=== PATIENT | female | born 1935 | race Caucasian/White ===

== ENCOUNTER → 2016-10-30 | Outpatient (REF) | payer MEDICARE, OTHER ==
[2016-10-30 14:35] LABS: PERCENT SATURATION 12.2 % (13.2-37.4)
== END | disposition home or self-care (01) ==
LOC: M LAB REF 13:23
PROVIDERS: ATTEND Internal Medicine Medical Oncology
DX: D69.6 Thrombocytopenia, unspecified (principal)

== ENCOUNTER → 2018-07-02 | Outpatient (REF) | payer MEDICARE, OTHER ==
[2018-07-02 14:33] LABS: FERRITIN 69 NG/ML (8-252); IRON (FE) 90 UG/DL (50-170); PERCENT SATURATION 41.9 % (13.2-45.0); TOTAL IRON BINDING CAPACITY 215 UG/DL (250-450)
== END ==
LOC: M LAB REF 13:34
DX: D47.1 Chronic myeloproliferative disease (principal)
CPT/HCPCS: 83550

== ENCOUNTER → 2019-02-17 | Outpatient (CLI) | payer MEDICARE, OTHER ==
[~2019-02-17] MED LIST: ALLO10TA PO; ANOR1AER PO; CALC1CAP31 PO; DICL1GEL3 TD; ELIQ2.5T PO; HYDR25TAB PO; IRBE150T12 PO; NORV5TAB PO; POTA10CA32 PO; TRAM50TA2 PO; TRIA0.027 TOP; VITA200038 PO
--- NOTE | 2019-02-17 12:29 | REP ---
CHEST X-RAY: Two views. HISTORY: Pneumonia. No comparison study. FINDINGS: Mild cardiac enlargement is observed. Cardiothoracic ratio measures 52.9%. The aorta is somewhat tortuous. There is a dextroconvex thoracic spine curvature. Interstitial markings are mildly prominent in both bases. Minimal linear fibrosis changes are seen on the left. No focal infiltrate is seen. The pleural angles are sharp. There are degenerative changes in the thoracic spine. There is minimal wedging of one of the mid-thoracic vertebrae which appears chronic. IMPRESSION: Cardiac enlargement. Mildly prominent basilar interstitial markings. Mild linear fibrosis on the left. Otherwise no acute disease. Electronically Signed by Hesham Engle MD 02/17/2019 01:15 P
== END ==
LOC: M SMT 10:37
PROVIDERS: ATTEND Internal Medicine Nephrology
DX: R91.8 Other nonspecific abnormal finding of lung field (principal); I51.7 Cardiomegaly

== ENCOUNTER 2019-09-29 14:30 | Emergency (ER) | payer MEDICARE, OTHER ==
[~2019-09-29] VITALS: Ht 167.6 cm; Wt 77.6 kg
[~2019-09-29 14:30] MED LIST changes: +GABA-845 PO
[2019-09-29] MEDS ORDERED: METAL LOCK LOOP XX ONE (15:32)
[2019-09-29 15:33] LABS: HEMATOCRIT 35.6 % (36.0-47.0); HEMOGLOBIN 10.5 g/dl (12.0-15.5); MEAN CORPUSCULAR HEMOGLOBIN 25.1 pg (27.0-33.0); MEAN CORPUSCULAR HGB CONC 29.5 g/dl (32.0-36.5); PLATELET COUNT, AUTOMATED 469 10^3/uL (150-450); RED BLOOD COUNT 4.19 10^6/uL (4.00-5.40)
[2019-09-29 15:38] LABS: WHITE BLOOD COUNT 31.1 10^3/uL (4.0-10.0)
[2019-09-29 15:53] LABS: ALBUMIN 3.9 GM/DL (3.2-5.2); BILIRUBIN,DIRECT 0.2 MG/DL (0.0-0.2); BILIRUBIN,TOTAL 0.6 MG/DL (0.2-1.0); CALCIUM LEVEL 8.7 MG/DL (8.8-10.2); CREATININE FOR GFR 1.82 MG/DL (0.55-1.30)
[2019-09-29 16:08] LABS: ATYPICAL LYMPH 2 % (0-5); BASOPHILS 4 % (0-1); EOSINOPHILS 2 % (0-3); LYMPHOCYTES 15 % (16-44); METAMYELOCYTES 7 % (0-0); MONOCYTES 3 % (0-5); MYELOCYTES 10 % (0-0); NEUTROPHILS 49 % (28-66); PLATELET ESTIMATE NORMAL (NORMAL); PROMYELOCYTES 1 % (0-0)
[2019-09-29 16:09] LABS: ANISOCYTOSIS 2+; HYPOCHROMASIA 1+; OVALOCYTES 1+; POIKILOCYTOSIS 2+; POLYCHROMASIA 1+
[2019-09-29 18:24] VITALS: BP 168/68
--- NOTE | 2019-09-29 19:25 | REP ---
RIGHT UPPER QUADRANT ULTRASOUND: Real-time sonographic evaluation of the right upper quadrant performed. There appears to be a 7 mm stone in the neck of the gallbladder. No gallbladder wall thickening is seen. The patient is tender at the site of the gallbladder. There is no intrahepatic or extrahepatic biliary dilatation, the common bile duct measuring 4 mm. The liver is heterogeneous and increased in echotexture suggesting some degree of fibrofatty infiltration. Main portal vein is dilated up to 20 mm suggesting portal hypertension. No gross pancreatic or liver mass is seen. Right kidney demonstrates no hydronephrosis with length of 9.6 cm. Multiple cysts are seen. The largest is in the mid aspect 1.3 cm in diameter. No free fluid is seen. IMPRESSION: There appears to be a 7 mm gallstone in the neck of the gallbladder. The patient is tender at the gallbladder site. No gallbladder wall thickening or biliary dilatation. No free fluid. Increased heterogeneous echotexture of the liver suggests fibrofatty infiltration. Dilated main portal vein suggests portal hypertension. Electronically Signed by Ed South MD 09/30/2019 04:40 P
--- NOTE | 2019-10-03 08:00 | ED PDOC ---
Post-Departure Follow-Up dr garrido and dr sreedhar lovett faxed fomral report of us for fu Nicholas Feng MD Oct 03, 2019 08:00
== END 2019-09-29 18:26 | disposition home or self-care (01) ==
LOC: M ED 14:30
DX: D47.1 Chronic myeloproliferative disease (principal); K80.70 Calculus of gallbladder and bile duct without cholecystitis without obstruction; C92.90 Myeloid leukemia, unspecified, not having achieved remission; Z87.891 Personal history of nicotine dependence; Z79.899 Other long term (current) drug therapy; Z79.01 Long term (current) use of anticoagulants

== ENCOUNTER → 2020-01-11 | Outpatient (REF) | payer MEDICARE, OTHER ==
[~2020-01-11] MED LIST changes: +ENOX80IN3 SC; -IRBE150T12 PO; +IRBE150T7 PO; +POTA10TA17 PO; +[UNRECOGNIZED DRUG - CODE] PO
[2020-01-13 09:02] LABS: HEPATITIS B CORE ANTIBODY IGM NEGATIVE (NEGATIVE); HEPATITIS B SURFACE ANTIBODY NEGATIVE (POSITIVE); HEPATITIS B SURFACE ANTIGEN NEGATIVE (NEGATIVE); HEPATITIS C VIRUS ABY INDEX 0.1 INDEX (<0.8)
== END ==
LOC: M LAB REF 13:21
PROVIDERS: ATTEND Nurse Practitioner Family
DX: N18.6 End stage renal disease (principal)

== ENCOUNTER → 2020-01-12 | Outpatient (CLI) | payer MEDICARE, OTHER ==
[~2020-01-12] MED LIST changes: +ACETAMINOPHEN 325 MG TAB As Ordered ONE; +HEPARIN 1,000 UNITS/ML 10ML VIAL (FOR RADIOLOGY& DIALYSIS ONLY)(J1644-10) As Ordered ONE; +LIDOCAINE W/EPINEPHRINE 1% 20ML VIAL As Ordered ONE; +MIDAZOLAM INJ 2 MG/2 ML VIAL (J2250) As Ordered ONE; +ONDANSETRON 4MG/2ML VIAL (J2405) As Ordered ONE; +SODIUM BICARBONATE 8.4% INJ 50MEQ 50 ML VIAL As Ordered ONE; +ceFAZolin 1GM VIAL (J0690 PER 500MG) As Ordered ONE; +fentaNYL 100 MCG/2 ML INJECTION (J3010) As Ordered ONE
--- NOTE | 2020-01-12 15:45 | ROOPDOC ---
[facility] Report Of Operation Report of Operation DATE OF PROCEDURE: 01/12/20 PREPROCEDURE DIAGNOSES: Renal failure requiring access for dialysis POSTPROCEDURE DIAGNOSES: Same. PROCEDURE: 1. Ultrasound-guided access right internal jugular vein 2. Placement of a 23 cm tunneled PermCath right internal jugular vein SURGEON: Laurie De Oliveira MD ANESTHESIA: Local anesthesia with 25 mL lidocaine with epinephrine. Moderate intravenous conscious sedation was supervised by Dr. De Oliveira. The patient was independently monitored by a registered nurse assigned to the Department of radiology using automated blood pressure, EKG, and pulse oximetry. A detailed sedation record is probably started in the hospital information system. The f trice is a brief sedation record: Start time 15:07, stop time 15:14, Versed 1 mg IV, fentanyl 25 g IV. INDICATION FOR PROCEDURE: This is a very pleasant 84-year-old patient with acute on chronic renal insufficiency requiring access for dialysis. Risks benefits and alternatives to PermCath placement were explained to the patient she is agreeable to proceed. Informed consent was obtained. INTERPRETATION: The right IJ PermCath is in good position with no kinks in the catheter and the tip freely mobile and the right atrial SVC junction. There is no pneumothorax. REPORT OF OPERATION: The patient was brought into graphic suite in stable condition and placed supine on the fluoroscopic table. Her right neck and chest were prepped and draped in a sterile fashion. A timeout was performed. Sedation antibiotics were administered without compensation. Local anesthesia was administered to the skin and subcutaneous tissue over the right IJ and the right chest and over the clavicle. A microneedle was used to access the jugular vein under ultrasound guidance. A wire was passed through this access and the needle was removed. A 4 Irish sheath was placed and flushed with saline. We then advanced a J-wire and to the central system under fluoroscopic guidance. 2 serial dilations were performed over the wire and a peel-away sheath was placed. We then made a small incision on the right chest and tunneled the catheter from the right chest to the jugular access site up over the clavicle until the cough was within the subcutaneous tissue. The inner cannula of the sheath and the wire were removed. We then advanced the tips of the catheter through the peel-away sheath into the central system under fluoroscopic guidance. The peel-away sheath was removed. We were able to easily sara back and flushed each port of the catheter and they were heparin locked. Appropriate caps were placed. Two deep and 2 superficial dermal Monocryl sutures were used to close the jugular access site Dermabond was placed over the skin. The exit site on the right chest was closed with 2 Prolene sutures and the catheter was secured to the chest wall with 2 additional Prolene sutures. Sterile dressings were applied. The patient was taken to recovery in stable condition. She tolerated the procedure and the sedation well. In recovery, initially she had a little bit of nausea and Zofran was given with resolution of the nausea. She then tolerated diet. We plan to watch her for 30-40 minutes post sedation prior to discharge, and then she will return home if stable. ESTIMATED BLOOD LOSS: Approximately 2 mL. COMPLICATIONS: None. PLAN: It is okay to use the PermCath for dialysis. She is welcome to continue her home medications and diet, but we would like her to hold her eliquis tonight and in the morning, and then she can resume it tomorrow night. If the patient is deemed permanent renal failure, we would like to see her back with the vein yani ing to discuss options for an AV fistula creation versus AV graft. We appreciate the opportunity to participate in the care of this patient. LAURIE DE OLIVEIRA MD Jan 12, 2020 15:45
[2020-01-12 16:00] VITALS: BP 136/70
== END ==
LOC: M IRPRO 14:08
PROVIDERS: ATTEND Surgery Vascular Surgery
DX: N18.6 End stage renal disease (principal); M10.9 Gout, unspecified; D47.1 Chronic myeloproliferative disease; J44.9 Chronic obstructive pulmonary disease, unspecified; Z86.718 Personal history of other venous thrombosis and embolism; Z79.01 Long term (current) use of anticoagulants; Z79.899 Other long term (current) drug therapy

== ENCOUNTER → 2020-01-26 | Outpatient (CLI) | payer MEDICARE, OTHER ==
[~2020-01-26] MED LIST changes: -ACETAMINOPHEN 325 MG TAB As Ordered ONE; -HEPARIN 1,000 UNITS/ML 10ML VIAL (FOR RADIOLOGY& DIALYSIS ONLY)(J1644-10) As Ordered ONE; -LIDOCAINE W/EPINEPHRINE 1% 20ML VIAL As Ordered ONE; -MIDAZOLAM INJ 2 MG/2 ML VIAL (J2250) As Ordered ONE; -ONDANSETRON 4MG/2ML VIAL (J2405) As Ordered ONE; -SODIUM BICARBONATE 8.4% INJ 50MEQ 50 ML VIAL As Ordered ONE; -ceFAZolin 1GM VIAL (J0690 PER 500MG) As Ordered ONE; -fentaNYL 100 MCG/2 ML INJECTION (J3010) As Ordered ONE
--- NOTE | 2020-01-26 15:15 | REP ---
BILATERAL UPPER EXTREMITY DUPLEX DOPPLER ARTERIAL AND VENOUS ULTRASOUND FOR AV FISTULA MAPPING: Real-time ultrasound evaluation and duplex Doppler interrogation of bilateral upper extremity arterial and venous systems performed for AV fistula mapping. There is occlusive thrombus at the right internal jugular vein. Permacatheter is the proximal right internal jugular vein. There is thrombus in the cephalic vein at the right antecubital fossa. No thrombus is seen in the venous structures of the left upper extremity. On the right, the basilic vein measures 1 mm throughout its course in the upper and lower arm. Cephalic vein also measures 1 mm throughout its course in the upper and lower arm. Right upper extremity arterial structures demonstrate normal flow velocities with biphasic waveforms. Right axillary artery measures 6 mm, brachial artery 4 mm, radial artery 3 mm and ulnar artery 4 mm. On the left, the basilic vein measures 4 mm at the upper humerus, 3 mm at the lower humerus and 1 mm throughout the forearm. Median cubital vein measures 2 mm. Left cephalic vein measures 1 mm throughout the upper and lower arm. Left upper extremity arterial structures demonstrate normal flow velocities with biphasic waveforms. Left axillary artery measures 6 mm, brachial artery 4 mm and radial and ulnar arteries 3 mm. Electronically Signed by Ed South MD 01/26/2020 03:49 P
== END ==
LOC: M RAD 12:22
PROVIDERS: ATTEND Physician Assistant
DX: N18.6 End stage renal disease (principal); Z99.2 Dependence on renal dialysis

== ENCOUNTER 2020-02-20 18:57 | Inpatient (IN) | payer MEDICARE, OTHER ==
[~2020-02-20] VITALS: Ht 167.6 cm; Wt 65.9 kg
[2020-02-20 19:45] LABS: HEMATOCRIT 27.9 % (36.0-47.0); HEMOGLOBIN 8.2 g/dl (12.0-15.5); MEAN CORPUSCULAR HEMOGLOBIN 28.3 pg (27.0-33.0); MEAN CORPUSCULAR HGB CONC 29.4 g/dl (32.0-36.5); MEAN CORPUSCULAR VOLUME 96.2 fl (80.0-96.0); PLATELET COUNT, AUTOMATED 236 10^3/uL (150-450)
[2020-02-20 19:49] LABS: WHITE BLOOD COUNT 59.9 10^3/uL (4.0-10.0)
[2020-02-20 20:07] LABS: CALCIUM LEVEL 7.1 MG/DL (8.8-10.2); CK-MB VALUE MASS 1.3 NG/ML (<3.6); CREATININE FOR GFR 2.96 MG/DL (0.55-1.30); MB/CK RELATIVE INDEX 0.74 (< OR =4); POTASSIUM SERUM 4.7 MEQ/L (3.5-5.1); TROPONIN I 0.02 NG/ML (< 0.10)
[2020-02-20 20:09] LABS: ANISOCYTOSIS 2+; BASOPHILS 4 % (0-1); BLAST CELLS 3 % (0-0); HYPOCHROMASIA 2+; LYMPHOCYTES 11 % (16-44); METAMYELOCYTES 4 % (0-0); MONOCYTES 4 % (0-5); MYELOCYTES 8 % (0-0); NEUTROPHILS 61 % (28-66); PLATELET ESTIMATE NORMAL (NORMAL); POLYCHROMASIA 2+; PROMYELOCYTES 3 % (0-0); TOXIC VACUOLATION 1+
[2020-02-20 20:11] LABS: POIKILOCYTOSIS 2+; SCHISTOCYTES 1+
[2020-02-20 20:12] LABS: BURR CELLS 1+; SMUDGE CELLS 1+; TEAR DROP CELLS 1+
[2020-02-20] MEDS: SPIRONOLACTONE 25 MG TAB PO SCH (21:00)
[2020-02-20] MEDS ORDERED: APIXABAN 2.5 MG TAB (ELIQUIS) PO SCH (21:00)
[2020-02-20] MEDS: DOCUSATE SODIUM 100 MG CAP PO SCH (21:00)
[2020-02-20] MEDS ORDERED: FUROSEMIDE 20 MG TAB PO SCH (21:00)
--- NOTE | 2020-02-20 21:23 | IPNPDOC ---
Text Note Date of Service The patient was seen on 02/20/20. 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 1 Hypotension without SIRS - admit to PCU / ask to help us place a central line / start Levophed / hold amlodipine, irbersartan, Entreso, Lasix, HTCZ and spironolactone / c/w midodrine / since she is in Entreso I suspect she has systolic CHF, we will check a BNP, pending records from 's office the day time team can determine if she needs an Echo this admission 2 ESRD/ Malise possibly 2/2 dialysis dysequilibrium syndrome. - consult / pending records from the day time team can discuss weather the patient's irbersartan & Entreso should be d'cd bc she has ESRD with 3. Multifactorial Anemia - type and screen / f/u iron studies to see if she is a candidate for venofer / day time team can f/u w to see if she is a can didate for Epogen 4. Paroxysmal Afib - she has been evaluated by and is on AC, will ask staff to help us obtain records from his office, / hold tonight's dose of Eliquis 5. Lactic acidosis - likely hypoxic 2/2 regional hypoperfusion or non-hypoxic due to delayed clearance 2/2 renal dysfunction / trend lactic acid 6. CMML with leukocytosis and macrocytic anemia - f/u Hem/Onc as scheduled 7. Reactive airway disease ?- c/w Anoro Ellipta rest per ' H&P LATE ENTRY The patient's MAP is persistently below 65. Both Gael Granger and Lili had difficulties placing a line. We will keep her NPO and ask the daytime team to have IR place a line in the morning, in the meanwh ile we will run levophed peripherally VS,Fishbone, I+O VS, Fishbone, I+O Laboratory Tests 02/20/20 19:21 Vital Signs Date Time Temp Pulse Resp B/P (MAP) Pulse Ox O2 Delivery O2 Flow Rate FiO2 02/20/20 20:54 109/55 (73) 02/20/20 20:45 87 02/20/20 20:15 97 Nasal Cannula 4.0 02/20/20 19:03 97.2 22 JOSHUA HOUSE MD February 20, 2020 21:23
[2020-02-20] MEDS ORDERED: VITA200010 PO (21:59)
[2020-02-20] MEDS ORDERED: GABA-1171 PO (22:05)
[2020-02-20] MEDS ORDERED: PROL60SO SC (22:05)
[2020-02-20] MEDS ORDERED: SPIR-10 PO (22:05)
[2020-02-20] MEDS ORDERED: MIDO5TA PO (22:05)
[2020-02-20] MEDS ORDERED: FURO20TA2 PO (22:05)
[2020-02-20] MEDS ORDERED: FURO40TA2 PO (22:05)
[2020-02-20] MEDS ORDERED: ENTR1TAB PO (22:05)
[2020-02-20] MEDS ORDERED: VOLT1GEL15 TOP (22:05)
[2020-02-20] MEDS ORDERED: MOM 30ML SUSPENSION UDC PO PRN (22:30)
[2020-02-20] MEDS ORDERED: MIDODRINE 5 MG TAB PO SCH (22:45)
[2020-02-20] MEDS ORDERED: METAL LOCK LOOP XX ONE (23:00)
--- NOTE | 2020-02-20 23:39 | HPEPDOC ---
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 She has felt weak ever since initiating hemodialysis last month and had accompanying chills this afternoon during dialysis. She follows with Dr. Paniagua and has been receiving hemodialysis every Thursday, Thursday, Thursday. Per report, patient required an extra dialysis session this past Thursday to try and help get more fluid off. Upon exam the emergency department, she denied any symptoms other than the aforementioned chills and generalized weakness. Her labs showed WBC 59.9, hemo globin 8.2, MCV 96.2, serum calcium 7.1, BUN 33, creatinine 2.96, GFR 16%. A point of care arterial blood gas showed pH of 7.554, PCO2 29.7, HCO3 of 26.3, with anion gap of 11. Lactic acid was 3.8. Two blood cultures were drawn and are pending. EKG showed what believed to be new onset atrial fibrillation with a controlled ventricular rate. Cardiac enzymes were not elevated. She was typed and screened due to the low hemoglobin. Upon the recommendation of nephrology, she was admitted overnight under the care of the hospitalist service. She was initially admitted to PCU, but became hypotensive again with a map under 65. At this time, it was felt she would be unable to consistently maintain adequate pressures without pharmacological pressor support. She was subsequently transferred to the ICU and agreed for central line placement. Unfortunately, general surgery, was unable to place a line after not getting enough blood return from the left internal jugular vein, as well as struggling with these left subclavian vein. Due to the patient's anasarca, femoral line placement was deferred. Peripheral IV administration of levofed was to be initiated to maintain her pressures as well as possible. 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 She has no children. 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 Quit smoking approximately 15 years ago. She smoked cigarettes for 30 years, 1 pack per day. Denies current or former alcohol or illicit drug use. FAMILY HISTORY: Father: Lung cancer Hypertension runs in the family ALLERGIES: Please see below. REVIEW OF SYSTEMS: 10 point review of systems complete, all negative except otherwise stated in HPI HOME MEDICATIONS: Please see below. PHYSICAL EXAMINATION: VITAL SIGNS: Temperature 97.2, pulse 87, respiratory rate 18, blood pressure 109/55, pulse oximetry, 97 % on 4L NC. GENERAL APPEARANCE: Elderly female with significant anasarca (bilateral legs, arms, and face). Lying in bed at time of exam. No acute distress but does appear fatigued. Alert and oriented 3. HEENT: Cheeks and neck appear swollen. Wearing eyeglasses. PERRLA. Noninjected, anicteric sclera. Wearing upper and lower dentures. No pharyngeal erythema or exudate. No cervical or supraclavicular lymphadenopathy appreciated. Moderately hard of hearing. CARDIOVASCULAR: Irregularly irregular rhythm, controlled rate. No murmurs or rubs appreciated. Permacath present in right upper chest. LUNGS: On 4 L nasal cannula. Diffuse mild wheezes with faint inspiratory crackles appreciated at the right lung base. Diminished tidal volume and breath sounds. Symmetric chest expansion. Speaking full sentences. ABDOMEN: Soft, nontender with some mild distention appreciated. Normoactive bowel sounds all 4 quadrants. No guarding or rigidity. EXTREMITIES: 3+ pitting edema b/l LE with active weeping (right a bit worse than the left), b/l 2+ pedal edema, b/l UE 1-2+ pitting edema with active weeping. 2+ radial pulses bilaterally. Difficult to appreciate for lower extremity pulses due to significant edema. Skin over her hands and feet cool to the touch. NEUROLOGICAL: Awake, alert and oriented 3. No focal neurological deficits appreciated. Respond appropriately to questions and commands. PSYCHIATRIC: Affect and mood appear appropriate LABORATORY DATA: Please see below. IMAGING: One view, portable chest x-ray, 02/20/20 MICROBIOLOGY: Please see below. ASSESSMENT & PLAN: This is an 84-year-old female with h/o ESRD on HD via permacath (MWF), chronic myeloproliferative disorder evolving to chronic myelomonocytic leukemia and possible acute myeloid leukemia, previous DVT on eliquis, reactive airway disease, HTN, Vit D deficiency, and gout who was principally admitted for dialysis disequilibrium syndrome with hypotension and also presented in new onset atrial fibrillation. #Hypotension with ESRD on hemodialysis via permacath (MWF) -pt was unable to consistently maintain MAP > 65 after admission; decision made to -malaise with ESRD points to possible possible dialysis disequilibrium disorder -was undergoing Thursday hemodialysis when acutely became hypotensive and subsequently brought to ED via EMS -Nephrology service has been consulted -home diuretics held; home midodrine continued -post-admission hypotension with MAPs < 65 warranted central line placement; both in ED and with general surgery, central line was unable to be placed; norepinephrine was subsequently started peripherally with hope that would bridge adequate pressures to day when line could be attempted again #New onset atrial fibrillation -rate has been controlled -EKG in ED revealed atrial fibrillation -on tele -takes eliquis as outpt due to h/o DVT (occurred 4-5 years ago per pt) -has previously been seen by Dr. Samuel in [place], [place] -evening dose of eliquis was held in preparation of central line placement #Chronic myeloproliferative disorder with significant leukocytosis and macrocytic anemia -per 02/07/20 medical oncology telemedicine office note, pt's disorder has evolved into chronic myelomonocytic leukemia and is likely to further evolve into acute myeloid leukemia -WBC 59.9; Hgb 8.2, MCV 96.2 -most recently had followed with Dr. Gigi Arboleda M.D. of the [facility] -f/u with Fe studies and collaborate with nephrology regarding if pt would benefit from venofer or epogen -also had history of squamous cell skin CA with multiple prior actinic keratoses that were removed #Respiratory alkalosis -POC abg: pH 7.554, pCO2 29.7, HCO3 26.3 -possibly 2/2 to hypoxia from regional hypoperfusion or renal dysfunction #Reactive airway disease -home Anoro ellipta continued -does not use home O2 but has required 3-4L NC supplemental O2 to maintain adequate sats and not feel short of breath #Vitamin D deficiency -home calcitriol continued #History of gout -home allopurinol continued #DVT prophylaxis: home eliquis continued (PM 02/20/20 dose held d/t anticipated central line) Disposition: originally admitted to PCU but later transferred to ICU after s howing MAP < 65 and line placement for levophed anticipated. Vital Signs Vital Signs Date Time Temp Pulse Resp B/P (MAP) Pulse Ox O2 Delivery O2 Flow Rate FiO2 02/20/20 22:45 84 96/50 (65) Nasal Cannula 4.0 02/20/20 20:15 97 02/20/20 19:03 97.2 22 Laboratory Data Labs 24H Laboratory Tests 2 02/20/20 19:21: Immature Granulocyte % (Auto) , Neutrophils (%) (Auto) , Nucleated Red Blood Cells % (auto) 3.9H, Neutrophils 61, Band Neutrophils 2, Lymphocytes (Manual) 11L, Monocytes (Manual) 4, Basophils (Manual) 4H, Metamyelocytes 4H, Myelocytes 8H, Promyelocytes 3H, Blastocytes 3H, Polychromasia 2+, Hypochromasia 2+, Poikilocytosis 2+, Anisocytosis 2+, Schistocytes 1+, Target Cells , Tear Drop Cells 1+, [place] Cells 1+, Toxic Vacuolation 1+, Smudge Cells 1+, Platelet Estimat e NORMAL, Anion Gap 11, Glomerular Filtration Rate 16.0L, Calcium Level 7.1L, Total Creatine Kinase 176, Creatine Kinase MB 1.3, Creatine Kinase MB Relative Index 0.74, Troponin I 0.02, Coronavirus (COVID-19)(PCR) NEGATIVE 02/20/20 20:21: POC pH (Misc Panel) 7.554H, POC Base Excess (Misc Panel) 4.0H, POC Saturated Percent O2 (Misc) 97, POC pO2 (Misc Panel) 81.0, POC pCO2 (Misc Panel) 29.7L, POC HCO3 (Misc Panel) 26.3H, POC Total CO2 (Misc Panel) 27.0 02/20/20 23:05: CBC/BMP Laboratory Tests 02/20/20 19:21 Microbiology Microbiology 02/20/20 Blood Culture, Received Pending 02/20/20 Respiratory Virus Panel (PCR) (TAMIE) - Final, Complete 02/20/20 Blood Culture, Received Pending Home Medications Scheduled Allopurinol (Allopurinol) 100 Mg Tab, 200 MG PO DAILY Amlodipine Besylate (Norvasc) 5 Mg Tab, 5 MG PO DAILY Apixaban (Eliquis) 2.5 Mg Tab, 2.5 MG PO BID Calcitriol (Calcitriol) 0.25 Mcg Cap, 0.25 MCG PO DAILY Cholecalciferol (Vitamin D3) (Vitamin D3) 50 Mcg Tablet, 2,000 UNITS PO DAILY Denosumab Injection (Prolia) 60 Mg/1 Ml Syringe, 60 MG SC ASDIRECTED INJECT 60 MG SUBQ EVERY 6 MONTHS DIRECTED Furosemide (Furosemide) 20 Mg Tablet, 20 MG PO QPM Furosemide (Furosemide) 40 Mg Tablet, 40 MG PO QAM Hydrochlorothiazide (Hydrochlorothiazide) 25 Mg Tab, 25 MG PO DAILY Midodrine HCl (Midodrine HCl) 5 Mg Tablet, 5 MG PO ASDIRECTED PER DIALYSIS 5MG TID ON NON-DIALYSIS DAYS, AND 5MG QAM 10MG MIDDAY AND 5MG EVENING ON DIALYSIS DAYS Spironolactone (Spironolactone) 25 Mg Tablet, 25 MG PO BID Umeclidinium Brm/Vilanterol Tr (Anoro Ellipta 62.5-25 Mcg INH) 1 Aer Aer, 1 PUFF PO DAILY Scheduled PRN Diclofenac Sodium (Voltaren) 100 Gm Gel..gram., 1 APLCT TOP TIDP PRN for PAIN APPLIES TO KNEES FOR KNEE PAIN Gabapentin (Gabapentin) 100 Mg Capsule, 200 MG PO BIDP PRN for PAIN Allergies Coded Allergies: alendronate sodium (Verified Allergy, Unknown, 02/20/20) enalapril (Verified Allergy, Unknown, 02/20/20) A-FIB/CHADSVASC A-FIB History Current/History of A-Fib/PAF?: Yes Current PO Anticoag Therapy: Yes (home eliquis continued) GME ATTESTATION GME ATTESTATION My faculty preceptor for this patient encounter was physically present during the encounter and was fully available. All aspects of the patient interview, examination, medical decision making process, and medical care plan development were reviewed and approved by the faculty preceptor. The faculty preceptor is aw are and concurs with the plan as stated in the body of this note and will attest to such by his/her cosignature. ATTENDING NOTE I agree with the findings as documented. Pls see my addendum from 02/20/20 for additional details. TOAN GOODRICH D.O. February 20, 2020 23:39 JOSHUA HOUSE MD February 24, 2020 07:25
[2020-02-21] VITALS (51 sets, daily range): BP systolic 73–114; BP diastolic 36–68
[2020-02-21] MEDS ORDERED: GABAPENTIN 100 MG CAP PO PRN (01:30)
[2020-02-21] MEDS ORDERED: NOREPINEPHRINE BITARTRATE 16 MG in D5W 484 ML IV SCH (03:00)
[2020-02-21] MEDS ORDERED: NOREPINEPHRINE BITARTRATE 8 MG in D5W 484 ML IV SCH (03:06)
[2020-02-21 04:02] LABS: HEMATOCRIT 25.1 % (36.0-47.0); HEMOGLOBIN 7.5 g/dl (12.0-15.5); MEAN CORPUSCULAR HEMOGLOBIN 28.7 pg (27.0-33.0); MEAN CORPUSCULAR HGB CONC 29.9 g/dl (32.0-36.5); MEAN CORPUSCULAR VOLUME 96.2 fl (80.0-96.0); PLATELET COUNT, AUTOMATED 259 10^3/uL (150-450); RED BLOOD COUNT 2.61 10^6/uL (4.00-5.40)
[2020-02-21 04:14] LABS: WHITE BLOOD COUNT 53.7 10^3/uL (4.0-10.0)
[2020-02-21 04:49] LABS: ALBUMIN 1.9 GM/DL (3.2-5.2); BILIRUBIN,TOTAL 0.4 MG/DL (0.2-1.0); CREATININE FOR GFR 3.44 MG/DL (0.55-1.30); GLOMERULAR FILTRATION RATE 13.4 (>32); POTASSIUM SERUM 3.7 MEQ/L (3.5-5.1); TOTAL PROTEIN 4.8 GM/DL (6.4-8.2)
[2020-02-21] MEDS: NOREPINEPHRINE BITARTRATE 8 MG in D5W 492 ML IV SCH (05:42)
[2020-02-21] MEDS: COMBIVENT RESPIMAT 100-20MCG INHALER 4GM INH SCH ×4 (07:49→19:31)
--- NOTE | 2020-02-21 08:32 | REP ---
PORTABLE CHEST X-RAY: Single view. HISTORY: Hypotension. COMPARISON CHEST X-RAY: February 17, 2019. FINDINGS: Monitoring electrodes are seen. A dual-lumen central venous tunnel catheter is seen in place with its tip in the expected location of the superior vena cava from the right internal jugular vein region. Oxygen delivery tubing is seen. The left hemidiaphragm remains slightly elevated unchanged. No infiltrate is seen. There is very slight blunting of the left lateral pleural angle. Pleural angles are otherwise sharp. Cardiomediastinal silhouette is unchanged. IMPRESSION: Tunneled catheter in place. No infiltrate seen. Electronically Signed by Hesham Engle MD 02/21/2020 11:25 A
[2020-02-21] MEDS ORDERED: FUROSEMIDE 40 MG TAB PO SCH (09:00)
[2020-02-21] MEDS ORDERED: hydroCHLOROthiazide 25 MG TAB PO SCH (09:00)
[2020-02-21] MEDS: APIXABAN 2.5 MG TAB (ELIQUIS) PO SCH ×2 (09:00→20:40)
[2020-02-21] MEDS: SPIRONOLACTONE 25 MG TAB PO SCH (09:35)
[2020-02-21] MEDS: CALCITRIOL 0.25 MCG CAP (S0169) PO SCH (09:35)
[2020-02-21] MEDS: allopurinoL 100 MG TAB PO SCH (09:35)
[2020-02-21] MEDS: DOCUSATE SODIUM 100 MG CAP PO SCH ×2 (09:35→20:40)
[2020-02-21] MEDS ORDERED: LIDOCAINE 1% MDV 20ML VIAL As Ordered ONE (11:25)
[2020-02-21] MEDS: MIDODRINE 5 MG TAB PO SCH ×2 (11:36→17:12)
[2020-02-21 13:20] LABS: PTH INTACT 324.1 PG/ML (18.5-88.0)
[2020-02-21 18:31] LABS: IONIZED CALCIUM 4.3 MG/DL (4.5-5.3)
[2020-02-21 18:48] LABS: HEMATOCRIT 29.3 % (36.0-47.0); HEMOGLOBIN 9.2 g/dl (12.0-15.5)
[2020-02-21] MEDS ORDERED: MAG SULF 1GM/100ML (MAG RUN) 1 GM in IV 1 EA IV ONE (19:00)
[2020-02-21 19:11] LABS: CK-MB VALUE MASS < 1.0 NG/ML (<3.6); CPK CREATINE PHOSPHOKINASE 26 U/L (26-192); MAGNESIUM LEVEL 1.7 MG/DL (1.8-2.4); MB/CK RELATIVE INDEX 3.85 (< OR =4); POTASSIUM SERUM 3.3 MEQ/L (3.5-5.1); TROPONIN I 0.03 NG/ML (< 0.10)
--- NOTE | 2020-02-21 20:18 | REP ---
Procedure: PICC line insertion with Lucio The procedure was performed under the direct supervision of Dr. South. The risks and benefits of the procedure were explained to the patient and informed consent was obtained. The procedure was performed in the ICU at the bedside. The right brachial vein was localized using ultrasound guidance. The skin was prepped and draped in a sterile fashion. 2% lidocaine was used as a local anesthetic. Using ultrasound guidance the brachial vein was cannulated and a 0.018 guidewire was inserted. The needle was removed and a 5.5 Palestinian dilator and peel-away sheath was inserted over the guide wire. A 5.5 Palestinian dual lumen catheter was cut to length of 39 cm. The dilator was removed and the catheter was inserted over the guide wire. A portable chest x-ray was performed and the image demonstrates the catheter to be doubled back on itself in the superior SVC. The PICC line was readjusted. Another chest x-ray was performed and the image demonstrates the tip of the catheter to be in the SVC. The peel-away sheath was removed and the catheter was flushed with heparinized saline as per Hospital protocol. The catheter was affixed to the skin and a sterile dressing was applied. The patient tolerated the procedure well and there were no immediate complications. Electronically Signed by WILL Saucedo 02/21/2020 04:51 P Electronically Signed by Ed South MD 02/21/2020 08:09 P
--- NOTE | 2020-02-21 20:54 | CR ---
MEDICAL ONCOLOGY CONSULTATION NOTE DATE: 02/21/2020 The patient was evaluated while in the medical ICU. INDICATION FOR CONSULTATION: Evaluation and management recommendations regarding abnormal blood counts in the setting of hypotension. 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 The patient is seen in the medical intensive care unit at the request of Dr. Parsons. The patient reports, "I've been feeling weak since I started the dialysis, but I had chills yesterday, and my blood pressure was low so they admitted me." HISTORY OF PRESENT ILLNESS: Jessica Dickerson is a daquan 84-year-old woman whose history of present illness dates to the year 2006, when she was noted to have thrombocytosis. She was evaluated by Ghassan Gallego MD at that time, and on December 07, 2007, laboratory studies documented the position V617F mutation in the gene JAKA2. An initial diagnosis of essential thrombocythemia was made at that time, the patient having come to medical attention after presenting with gout involving the 5th digit of the right foot and laboratory studies showing thrombocytosis. 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 However, over the course of the past 5 years, the patient developed progressive anemia and phlebotomy was discontinued several years ago. She then began treatment using recombinant erythropoietin and later hydroxyurea was resumed. Ms. Dickerson remained on hydroxyurea until the 2014, when it was discontinued due to concerns regarding skin disease with multiple actinic keratoses and the development of squamous cell carcinoma. In the year 2015, she began therapy using ruxolitinib, but this was discontinued due to systemic toxicities, including flu-like symptoms and abdominal discomfort. The patient has been off medical therapy for her chronic myeloproliferative disorder since 2015. Over the past 12 months, the patient has been developing progressively increasing leukocytosis with monocytosis and circulating myeloblasts. Complete blood count in April 2019 showed a white count of 12,100 per microliter, rising to 24,900 per microliter by August 2019. Since that time, the white blood count has progressively continued to rise. In addition, immunophenotyping documented a clonal population of B cells, although the number did not reach the threshold for a diagnosis of chronic lymphocytic leukemia. Mrs. Dickerson underwent laparoscopic cholecystectomy on October 28, 2019 without complications. A blood specimen from October 14, 2019, analyzed via [facility] [place], [place] using the [employer] myeloid gene panel, by next generation sequencing, reported multiple mutations present in the DNA of the peripheral blood. 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 In addition, a mutation was identified in the gene ASXL1 at position 965. In view of the findings of the IDH1 mutation, the drug ivosidenib, at a dose of 500 mg by mouth daily was prescribed. However, this was declined by her healthcare insurer. Subsequently, a letter was sent to the compound finisher of the drug requesting medication on a compassionate basis. A response from the compound finisher has not yet been received. Mrs. Dickerson developed progressive renal insufficiency, and required initiation of hemodialysis in early January 2020. Perma-Cath was placed on January 12, 2020, and the patient promptly began hemodialysis on a Thursday, Thursday, Thursday schedule. However, she has been retaining fluid, and an additional hemodialysis session was performed on Thursday, February 18, 2020. On February 20, 2020, during dialysis, the patient became hypotensive and experienced chills. She was therefore sent to [facility] and was admitted. Hemodialysis was again complicated by hypotension, and the patient has required pressor support during this admission. She reports feeling weak at this time but otherwise well without focal symptoms. She has had no documented fevers since admission. ALLERGIES: The patient is intolerant of ENALAPRIL and ALENDRONATE. INPATIENT MEDICATIONS: - midodrine 10 mg by mouth three times a day - allopurinol 200 mg by mouth daily - calcitriol 0.25 mcg by mouth daily - apixaban 2.5 mg by mouth twice a day - albuterol/ipratropium Combivent one puff four times a day - gabapentin 200 mg by mouth twice a day as needed for pain - norepinephrine by intravenous infusion to maintain blood pressure. PAST MEDICAL HISTORY: Mrs. Dickerson has a past medical history significant for JAK2 positive chronic myeloproliferative disorder as detailed above. She is 0, para 0 and postmenopausal. There is a history of essential hypertension and a history of gout, as well as history of vitamin D deficiency. The patient experienced deep vein thrombosis a number of years ago and has been maintained on apixaban since that time. There is a history of multiple skin cancers with a squamous cell carcinoma removed from the right chin, as well as a basal cell carcinoma excised via Mohs surgery from the left side of the nose. The patient has end-stage renal failure as noted above with a Perma-Cath in the right subclavian position. 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 She was born in [place] while her father was in medical school. The patient smoked from the ages of 14 to the age of 63 for an approximately 50 pack-year history of tobacco use. This has been complicated by bronchospastic airway disease. Alcohol: There is no history of alcohol use. Illicit drugs: There is no history of illicit drug use. FAMILY HISTORY: The patient's father of lung cancer. The patient's mother with a history of atherosclerotic vascular disease. REVIEW OF SYSTEMS: Neurologic: History of the post herpetic neuralgia in the left first division of the trigeminal nerve, now resolved. No headaches at present. No tremor. No focal neurologic deficits otherwise. Respiratory: History of bronchospastic airway disease attributed to tobacco. No cough at present. No shortness of breath at rest. Cardiac: Atrial fibrillation noted on this admission. No prior history of myocardial infarction. No exertional chest pressure. No orthopnea. Gastrointestinal: The patient has a history of diarrhea intermittently in recent months. No abdominal pain at this time. No nausea, no vomiting, no hematochezia. No melena. Genitourinary: History of end-stage renal failure as noted. No hematuria. No dysuria. Musculoskeletal: The patient has chronic mild joint aches. No bone pain. No joint effusions. No recent fractures. Constitutional: No recent fevers or sweats but the patient did have chills on admission, now resolved. Remainder of the review of systems was obtained and was negative. PHYSICAL EXAMINATION: The patient is a well-developed, well-nourished woman, awake, alert and fully oriented, friendly and cooperative, in no acute distress. Temperature 98.4, pulse 85, respirations 18, blood pressure 100/52, oxygen saturation 96% on 2 liters by nasal cannula. Skin: Full turgor, anicteric. There are ecchymoses present. No petechiae. HEENT Examination: Normocephalic, atraumatic. Pupils reactive. Extraocular muscles intact. Sclerae anicteric. Oropharynx without lesions. Neck: Supple without appreciable thyromegaly. Lymphatics: No pathologic lymphadenopathy noted. Lungs: Bilateral breath sounds with slightly prolonged expiratory phase. No wheezes noted but occasional rales are present. Breast examination: Deferred. Perma-Cath present in the right anterior chest wall, nontender. Cardiac Exam: Irregularly Irregular rhythm, point of maximal impulse nondisplaced. S1, S2, with a 3/6 systolic murmur throughout the precordium. No S3, no S4 and no rub noted. Abdomen: Active bowel sounds, soft, nontender without guarding or rebound. The liver percusses to 13 cm and appears mildly enlarged. The spleen percusses to approximately 17 cm and extends approximately 5 cm below the left costal margin. No other masses noted. Pelvic Examination: Deferred. Rectal Examination: Deferred. Extremities: 1+ edema of lower extremities. No clubbing or cyanosis. Neurologic Exam: Mental status intact. Cranial nerves intact. Motor and sensory grossly intact. LABORATORY DATA: Laboratory studies dated February 21, 2020 include the following: White blood count 53,700 per microliter, hemoglobin 7.5 grams per deciliter, hematocrit 25.1%, platelet count 259,000. Most recent differential white blood cell count December 21, 2019 included 49% neutrophils, 8% lymphocytes, 24% monocytes, in addition, 8% myelocytes and 3% promyelocytes present. Laboratory reported polychromasia and 3% blast cells. IMPRESSION: JAK2 positive chronic myeloproliferative disorder, evolving over time, currently with chronic myelomonocytic leukemia. The patient's molecular profile of her disease identifies a mutation in ASXL1 gene, characteristic of chronic myelomonocytic leukemia. This is likely driving the current morphology of her disease. Her disease was previously driven by the JAK2 mutation. The mutation in ASXL1 is a poor prognostic finding, however the presence of the IDH1 mutation at the 315 position strongly suggests that the patient's blood counts would at least temporarily be improved by use of the drug ivosidenib. As stated above, an attempt has been made to obtain insurance preauthorization, but the patient's healthcare insurer declines coverage of ivosidenib at this time. The patient recently underwent repeat bone marrow examination; this showed that she continues to have a chronic myeloproliferative disorder, consistent with her peripheral blood counts that does show myeloblasts, but at a low percentage, and preservation of the platelet count. However, if repeat marrow examination were to show evidence of acute myeloid leukemia, then it is likely her healthcare insurer would cover ivosidenib as this drug is FDA approved for this indication in the presence of the IDH1 mutation. However, the compound finisher has been contacted, and it is possible Ms. Dickerson can obtain the drug free of charge from the compound finisher. In the meantime, the patient's platelet count has been preserved, and this argues against evolution to acute myeloid leukemia at this point in time. Similarly, the low myeloblast count of less than 10% in the peripheral blood also argues against evolution to acute myeloid leukemia. RECOMMENDATIONS: The patient's white blood count is not yet at a level which puts her at risk for leukostasis. Introduction of hydroxyurea would lower her white blood count, but would not change the biology of her disease. Consequently, it is difficult to argue that hydroxyurea would improve her clinical status at this point in time. As discussed previously, once the patient has been stabilized, it may be appropriate to repeat the bone marrow examination, but this is not likely to be significantly different from the bone marrow examination of November 2019. If ivosidenib can be obtained, she should begin this medication as soon as it is available at a dose of 500 mg by mouth daily. In the interim, the patient wishes to continue to be supported and this appears reasonable at this point in time. However, her long-term prognosis is quite guarded. The patient may symptomatically improve with transfusion support in view of her atrial fibrillation and hypotension, although there is some controversy regarding the benefit of transfusion in the intensive care unit setting. Nonetheless, from a hematologic point of view, it may be in the patient's best interest to be transfused to a hemoglobin in the range of 9 grams per deciliter. Additional management recommendations will be forthcoming based on the patient's clinical status as it evolves per her hospital stay.
--- NOTE | 2020-02-21 22:40 | ECHO ---
DATE OF PROCEDURE: 02/21/2020 REFERRING PHYSICIAN: Leigha BalesO. Diagnosis: Abnormal ECG Height 168 cm, weight 81 kg. DIMENSIONS: IVS: 1.1 LV: 4.1 LVPW: 1.1 LA: 3.8 Aorta: 2.8 IVC: 1.8 Mitral E wave velocity: 71 A wave velocity: 71 E prime septal: 10 E prime lateral: 10.8 FINDINGS: The study is very limited technical quality in uncooperative patient with difficult visualization. The patient seemed to be principally in atrial fibrillation even though there are episodes of brief sinus rhythm. Left ventricle is normal size and overall normal contractility. I certainly cannot rule out subtle wall motion abnormalities based on limited views. Right ventricle also appears to be of normal size and systolic function. Both atria are severely enlarged. Aortic valve is heavily sclerotic, and there is some restriction of leaflet mobility, but the visualization was quite limited. Mitral and tricuspid valve appear grossly normal. Pulmonic valve was not well seen. There is no pericardial effusion. Inferior vena cava has normal caliber. Aortic root is normal. Aortic arch and abdominal aorta were not well seen. Doppler interrogation reveals no aortic insufficiency and fairly trivial aortic stenosis. There is competent mitral valve. There is trace tricuspid insufficiency. Calculated pulmonary artery pressure was normal but quality of TR jet was poor, and this should not be considered reliable. Evaluation of diastolic function is complicated by alterations in the patient's rhythm, but based on mitral inflow pattern and tissue Doppler imaging, there is relatively preserved diastolic function. CONCLUSIONS: 1. Study is of limited technical quality, the patient is principally in atrial fibrillation. 2. Normal left ventricular (LV) size with normal LV systolic function. 3. Sclerosis of aortic valve resulting in trivial stenosis and no insufficiency. 4. Competent mitral valve. 5. Likely normal central venous pressure. COMMENT: Subacute bacterial endocarditis (SBE) prophylaxis is not recommended. MTDD
[2020-02-22] VITALS (61 sets, daily range): BP systolic 79–128; BP diastolic 42–71
[2020-02-22] MEDS ORDERED: ONDANSETRON 4MG/2ML VIAL As Ordered ONE (00:10)
[2020-02-22] MEDS ORDERED: ONDANSETRON 4MG/2ML VIAL IV PRN (00:15)
[2020-02-22 04:32] LABS: HEMATOCRIT 28.4 % (36.0-47.0); HEMOGLOBIN 8.9 g/dl (12.0-15.5); MEAN CORPUSCULAR HEMOGLOBIN 29.1 pg (27.0-33.0); MEAN CORPUSCULAR HGB CONC 31.3 g/dl (32.0-36.5); MEAN CORPUSCULAR VOLUME 92.8 fl (80.0-96.0); PLATELET COUNT, AUTOMATED 264 10^3/uL (150-450); RED BLOOD COUNT 3.06 10^6/uL (4.00-5.40)
[2020-02-22 04:34] LABS: WHITE BLOOD COUNT 62.7 10^3/uL (4.0-10.0)
[2020-02-22 05:05] LABS: CALCIUM LEVEL 7.1 MG/DL (8.8-10.2); CREATININE FOR GFR 2.58 MG/DL (0.55-1.30); GLOMERULAR FILTRATION RATE 18.7 (>32); POTASSIUM SERUM 3.8 MEQ/L (3.5-5.1)
[2020-02-22] MEDS: NOREPINEPHRINE BITARTRATE 8 MG in D5W 492 ML IV SCH (06:28)
[2020-02-22 06:35] LABS: VENOUS BASE EXCESS 3.3 (-2.0-2.0); VENOUS HCO3 27.7 MEQ/L (23.0-27.0); VENOUS O2 SATURATION 97.6 % (60.0-80.0); VENOUS PARTIAL PRESSURE CO2 41.3 mmHg (38.0-50.0); VENOUS PARTIAL PRESSURE O2 99.6 mmHg (30.0-50.0); VENOUS PH 7.444 UNITS (7.330-7.430); VENOUS STANDARD HCO3 27.4 MEQ/L; VENOUS TOTAL CO2 28.9 MEQ/L (24.0-28.0)
[2020-02-22 06:47] LABS: INR 1.85; PROTHROMBIN TIME 21.1 SECONDS (11.8-14.0)
[2020-02-22] MEDS: COMBIVENT RESPIMAT 100-20MCG INHALER 4GM INH SCH ×5 (07:27→19:42)
[2020-02-22] MEDS: MIDODRINE 5 MG TAB PO SCH ×3 (07:52→16:09)
[2020-02-22] MEDS: PIPERACILLIN/TAZOBACTAM SOD 2.25 GM in D5W MINI-BAG PLUS 50 ML IV SCH ×2 (08:04→16:08)
--- NOTE | 2020-02-22 08:11 | ECGEPIP ---
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
[2020-02-22 08:53] LABS: C REACTIVE PROTEIN QUANTITATIV 6.88 MG/DL (0.00-0.30); IMMUNOGLOBULIN A 92.1 MG/DL (70-400); IMMUNOGLOBULIN M 24.1 MG/DL (40-230)
[2020-02-22] MEDS ORDERED: VANCOMYCIN HCL 750 MG, VIAL MATE ADAPTER 1 EACH in D5W 250 ML IV SCH (09:00)
[2020-02-22] MEDS: APIXABAN 2.5 MG TAB (ELIQUIS) PO SCH ×2 (09:15→20:54)
[2020-02-22] MEDS: CALCITRIOL 0.25 MCG CAP (S0169) PO SCH (09:15)
[2020-02-22] MEDS: DOCUSATE SODIUM 100 MG CAP PO SCH ×2 (09:15→20:54)
[2020-02-22] MEDS: allopurinoL 100 MG TAB PO SCH (09:15)
--- NOTE | 2020-02-22 09:44 | REP ---
CT CHEST WITHOUT CONTRAST: HISTORY: Sepsis. Fever of unknown origin. No comparison chest CT. Comparison chest x-ray February 20, 2020. CT FINDINGS: There are small bilateral pleural effusions, left a little larger than right with some associated compressive atelectasis in the lower lobes bilaterally. No pericardial effusion is seen. No definite pulmonary parenchymal infiltrate is seen. There are mild emphysematous changes. There is a tunnel catheter via the right internal jugular vein terminating in the superior vena cava. Right-sided PICC line is also noted terminating in the superior vena cava as well. Vascular calcification is noted. No pericardial effusion is seen. The main pulmonary arteries is dilated and peripherally pruned consistent with pulmonary arterial hypertension. There is evidence of upper abdominal ascites. Bone window settings show no bony destructive lesion. IMPRESSION: No definite infiltrate. There is some compressive atelectasis in the lower lobes bilaterally associated with small bilateral pleural effusions. The left pleural effusion is a little larger than the right. Dilated central pulmonary arteries consistent with pulmonary arterial hypertension. Central venous lines as above. Electronically Signed by Hesham Engle MD 02/22/2020 10:57 A
--- NOTE | 2020-02-22 09:46 | REP ---
CT ABDOMEN AND PELVIS WITHOUT IV OR ORAL CONTRAST: HISTORY: Sepsis. Fever of unknown origin. No comparison CT study. CT FINDINGS: There is a moderate degree of splenomegaly. The spleen measures 15.5 cm in greatest transverse dimension. It is homogeneous in texture. No splenic mass lesion is seen. The liver margin is very slightly irregular. The liver is not felt to be enlarged. No focal liver lesion is seen. There is mild to moderate diffuse abdominal ascites. There is a 2.1 cm structure just anterior to the proximal superior mesenteric artery at the aneudy splenic venous confluence. This is somewhat heterogeneous. Possibilities include partial thrombosis of the aneudy splenic venous confluence versus adenopathy. Contrast enhanced CT study may be helpful if this is feasible. The remainder of the superior mesenteric vein and the portal vein appear intact. There is a slightly complex cyst in the left kidney measuring 3.9 cm in greatest diameter. Renal cortical atrophy is seen without hydronephrosis. Vascular calcification is noted. There are calcific uterine fibroid changes. Urinary bladder is intact. There is left colonic diverticulosis without CT evidence of diverticulitis. No evidence of free air or intra-abdominal abscess. IMPRESSION: Diffuse abdominal ascites. Splenomegaly. Question portal hypertension. Dilated and inhomogeneous region at the level of the aneudy splenic venous confluence; question venous thrombosis versus adenopathy here. Consider contrast enhanced CT study versus Doppler ultrasound. No evidence of free air, obstruction, or abscess. Calcified uterine fibroids. Vascular calcification. Post cholecystectomy. Electronically Signed by Hesham Engle MD 02/22/2020 10:57 A
[2020-02-22] MEDS ORDERED: VANCOMYCIN HCL 500 MG in D5W MINI-BAG PLUS 100 ML IV ONE (10:00)
--- NOTE | 2020-02-22 10:53 | IPN ---
DATE OF SERVICE: 02/22/2020 SUBJECTIVE: Overnight patient has required more Levophed and currently at 10 mcg. Had a low grade temperature of 99.2. Due to concerns of possible infection, patient has been empirically treated with IV vancomycin and Zosyn broad spectrum. CT chest, abdomen and pelvis have been obtained. Patient denies any chills, nausea, vomiting, abdominal pain, dysuria, urgency, frequency, flank pain. Denies any cough, shortness of breath. OBJECTIVE: Temperature 99.2, pulse 73, respiratory rate 16, blood pressure 85/48, 95% on 4 liters nasal cannula. Generally, patient is awake, alert, oriented to herself. Answering questions appropriately. No jugular venous distention (JVD). No thyromegaly. Lungs are clear but diminished. No wheezing, rales or rhonchi. Heart: S1, S2. Irregularly regular. Abdomen is soft, nontender, nondistended. Extremities: Positive edema 1+ bilaterally. No cyanosis or clubbing. LABORATORY DATA: White count 62.7, hemoglobin 8.9, hematocrit 28. 4, platelet count 264, 2 bands from 02/20/2020. INR 1.85. Sodium 138, potassium 3.9, chloride 103, bicarbonate 29, BUN 27, creatinine 2.58, glucose 110, lactic acid 1.7, C-reactive protein 6.88, procalcitonin is pending. Microbiology: Blood culture preliminary: No growth 02/20/2020. Respiratory panel negative. Repeat blood culture 02/22/2020 pending. ASSESSMENT/PLAN: This is an 84-year-old DO NOT RESUSCITATE, DO NOT INTUBATE, medical orders for life-sustaining treatment (MOLST) form has been signed. With a past medical history significant for chronic myeloproliferative disorder/chronic myelomonocytic leukemia, JAK2 position B617F mutation, with end-stage renal disease on maintenance dialysis on Thursday, Thursday, Thursday. Had been in positive balance and was found to be hypotensive with complaints of chills on 02/20/2020 prompting hospital admission. Patient continued to have hypotension requiring vasopressor therapy with Levophed IV drip with attempt by general surgery, Dr. Reynoso for central line placement on admission but was unsuccessful. Patient had been restarted back on her midodrine three times a day and due to low grade temperature and bandemia, the patient was empirically started on IV vancomycin and Zosyn broad spectrum and awaiting CT chest, abdomen, and pelvis report. CURRENT ISSUES: 1. Hypotension currently on Levophed drip. No signs of active infection but with low grade temperature of 99 as well as bandemia, patient has been empirically started on antibiotic vancomycin and Zosyn main to a pressure goal of 65 and higher. Currently on midodrine 10 mg three times a day. if procalcitonin is negative, will discontinue antibiotics. awaiting results of CT chest,abd,pelvis. wean off levophed gtt if MAP>65 2. End-stage renal disease on maintenance dialysis Thursday, Thursday, Thursday. The patient had been dialyzed yesterday with output 1 liter via dialysis. 3. chronic myeloproliferative disorder/chronic myelomonocytic leukemia (CMML) with no acute leukemia being monitored for transformation to acute myeloblastic leukemia (AML) by Dr. Arboleda. Per medical oncology recommendations, Hydrea would lower her white count but would not change the progression of her disease. Her long-term prognosis remains guarded. She has currently changed her full code status to DO NOT RESUSCITATE, DO NOT INTUBATE. Recommendations are to continue with transfusion support with RBC transfusion around 9 gm/dL in light of patient's history of atrial fibrillation and persistent hypotension. 4. History of deep venous thrombosis (DVT) on chronic Eliquis which has been resumed. No signs of active bleeding. 5. Vitamin D deficiency on supplementation. 6. History of bronchospastic and reactive airway disease: As needed nebulizer. prognosis: poor in light of CMML and comorbidities code status: DNR/DNI MOLST form signed. disposition: once off levophed iv gtt,may transfer out of ICU. d/c antibiotics if negative CT TAP, and if negative procalcitonin. MTDD
--- NOTE | 2020-02-22 10:59 | IPN ---
DATE OF SERVICE: 02/21/2020 The patient continues to be on Levophed drip. MAP is around 66 to 68. The patient is mentating well, able to state her name. "I am a little hard of hearing, you need to yell at me". Denies chest pain, pressure, tightness, shortness of breath, lightheadedness or dizziness. No nausea or vomiting. Eating her muffin in bed sitting at 90 degrees. The patient complains of feeling cold all the time, which is chronic for her. No chills or tremors. Temperature 98.1, pulse 89, respiratory rate 18, blood pressure 92/48, 98% on 2 liters nasal cannula. Generally, the patient is awake, alert, oriented to herself, answering questions appropriately. No jugular venous distention (JVD). No thyromegaly. No cervical lymphadenopathy. Lungs: Clear to auscultation. No wheezing. No rales. Heart: S1, S2. Irregularly irregular. Abdomen: Soft. Nontender. Nondistended. Positive bowel sounds times four quadrants. Extremities: Chronic edema, 2+ pitting. LABORATORY DATA: White count 53.7, hemoglobin 7.5, hematocrit 25, platelet count 259. Sodium 141, potassium 3.7, chloride 106, bicarbonate 26, BUN 38, creatinine 3.4, glucose 84, lactic acid 2.2, ionized calcium 4. Blood culture negative. Respiratory panel negative. ASSESSMENT AND PLAN: This is an 84-year-old female with history of end stage renal disease on maintenance dialysis Thursday, Thursday and Thursday, chronic myeloproliferative disorder, CMML, hypertension, COPD, DVT on chronic Eliquis, gout, and vitamin D deficiency, admitted due to hypotension during dialysis. The patient denied any fever or chills. Chest x-ray and blood cultures were negative for acute infection. The patient was admitted overnight and kept on Levophed drip due to mean arterial pressure under 65. The patient was mentating well. No antibiotics were given. CURRENT ISSUES: 1. Hypotension. The patient has no signs of infection. Despite attempts for central line placement by Dr. Reynoso, we were unable to place a central line. She is continued on midodrine. The patient is on Norvasc, irbesartan, hydrochlorothiazide and spironolactone until she is off the Levophed. She is afebrile. She is currently ordered a PICC line so we can run the Levophed drip. The patient currently has chronic elevated white count due to CMML. 2. End stage renal disease. Nephrology has been consulted for dialysis needs. Currently hypotensive requiring Levophed. 3. Multifactorial anemia secondary to end stage renal disease. No signs of active GI bleeding. The patient is chronically on Epogen, may need Venofer and will transfuse 1 unit rbc during dialysis. Will type and screen. Obtain blood consent form. Check hemoglobin and hematocrit after transfusion as well as Hemoccult stool for blood. 4. Paroxysmal atrial fibrillation. On anticoagulation. Holding patient's Eliquis due to PICC line placement today. 5. Lactic acidosis due to hypotension with hypoperfusion. No signs of active infection. 6. Reactive airway disease. Continue on Anoro Ellipta. 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 Medonc consulted for prognosis, and for any new recommendations. MTDD
--- NOTE | 2020-02-22 14:57 | CR ---
DATE OF CONSULTATION: 02/21/2020 REQUESTING PHYSICIAN: Mary Parsons MD CONSULTING PHYSICIAN: Dorina Paniagua DO REASON FOR CONSULTATION: Management of end-stage renal disease on hemodialysis. HISTORY OF PRESENT ILLNESS: Jessica Dickerson ia an 84-year-old female with the past medical history of end-stage renal disease on hemodialysis since January of 2020 on a Thursday, Thursday, Thursday schedule via PermCath. Also, a history of chronic myeloproliferative disorder for which she follows up closely with oncology but has not recently been on any medications, history of hypertension, secondary hyperparathyroidism, anemia, gout, remote history of deep venous thrombosis (DVT),chronic anticoagulation, history of skin cancers, and other comorbid conditions mentioned below. Recently, the patient has been experiencing worsening fluid retention and has had chronic hypotension complicating her outpatient hemodialysis treatment. She has had extra hemodialysis treatments in an effort to regulate her fluid status. However, hypotension of hemodialysis has made fluid removal difficult, and the patient has subsequently become edematous. She was sent to the emergency room after an episode of prolonged hypotension during dialysis treatment on 02/20/2020. Additionally, the patient resides with a friend (unrelated) who provides much care for her, but the friend has made it known to the dialysis staff that she is going to be unable to provide that level of care going forward, and the patient will need assistance with residence and assistance. The patient was seen and examined this morning in the intensive care unit. She has been started on low-dose pressor support via a peripheral line, and the of primary service is planning for an urgent peripherally inserted central catheter (PICC) line to be placed. The patient is awake, alert, and oriented and states she feels better since coming into the hospital. PAST MEDICAL HISTORY: As mentioned above, end-stage renal disease on hemodialysis since January, Thursday, Thursday schedule, chronic myeloproliferative disorder, essential hypertension, gout, secondary hyperparathyroidism, anemia, remote DVT, chronic anticoagulation use, history of multiple skin cancers including squamous cell carcinoma and basal cell carcinoma, bronchospastic airway disease. PAST SURGICAL HISTORY: Skin cancer excision, PermCath placement, bone marrow biopsy, cholecystectomy. 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 She is a [id number] ex-smoker. No alcohol or drug use reported. She resides with a friend who provides care in the form of housework chores, grocery, and assistance with medications. FAMILY HISTORY: Father of lung cancer. ALLERGIES: ENALAPRIL and ALENDRONATE. INPATIENT MEDICATIONS: - midodrine 10 mg three times a day - allopurinol 200 mg by mouth daily - calcitriol 0.25 mcg by mouth daily - apixaban 2.5 mg by mouth twice a day - Combivent one puff four times a day - gabapentin 200 mg twice a day as needed - Levophed infusion currently running at 6 mcg REVIEW OF SYSTEMS: Constitutional: She denies fevers. She had chills on admission that have resolved. Eyes: She denies visual changes or tearing. Ears, nose, and throat (ENT): She denies epistaxis or rhinorrhea. Cardiac: Positive for atrial fibrillation and leg edema and chronic hypotension. Respiratory: Ex-smoker, history of bronchospastic airway disease. Gastrointestinal: Denies nausea, vomiting. Genitourinary: Denies hematuria, dysuria. Musculoskeletal: Reports leg edema. Denies any acute myalgias or arthralgias. Endocrine: Denies a history of diabetes. Does have secondary hyperparathyroidism of renal origin. Hematologic: Reports chronic anticoagulant use and myeloproliferative disorder and anemia. Neurologic: No headache or seizures or syncope reported. Skin: History of skin cancers in the past. Denies any current pruritus or rashes. Remainder of review of systems is as per history of present illness (HPI). Vital signs: Temperature 98.4, pulse 80, respiratory rate 18, blood pressure 100/52, saturating 96% on 2 liters nasal cannula. Intake so far was 1 liter. Dialysis removed 1 liter. Weight in the bed scale today is 74.9 kg. General: The patient is seen in the intensive care unit (ICU), lying in bed with the head of the bed elevated, receiving a hemodialysis treatment, in no apparent distress. Awake, alert, oriented, conversational, pleasant. Extraocular muscles are intact. Sclerae are anicteric. Tongue is moist. Neck is supple. Jugular veins are elevated. Tunneled hemodialysis catheter is in use. Lungs show diminished breath sounds at the bases, symmetric air entry, comfortable on nasal cannula. No tachypnea nor accessory muscle use. Cardiac: Irregularly irregular. 2+ leg edema noted bilaterally. Abdomen: Soft and nontender. Positive bowel sounds. Neurologic: Oriented times three. Interactive and conversational. Skin: There is pallor. Skin is warm and dry to touch. Psychiatric: Appropriate mood and affect. LABORATORIES: White count 53.7, hemoglobin 7.5, platelet 259. Sodium 141, potassium 3.7, bicarbonate 28, BUN 38, creatinine 3.4, lactic acid 2.2, corrected calcium 8.6, PTH 324, procalcitonin pending. MICROBIOLOGY: Blood cultures with no growth for 24 hours times two sets. Chest x-ray 02/21/2020: No infiltrates. Sharp pleural angles. INPATIENT MEDICATIONS: As previously mentioned. PROBLEMS: 1. End-stage renal disease. On hemodialysis on a Thursday, Thursday, Thursday schedule. The patient has had progressive fluid overload due to difficulty removing fluid during her outpatient hemodialysis treatments because of persistent hypotension of hemodialysis. She has been on midodrine, and I have increased the dose to 10 mg three times a day. She is presently on Levophed support, and we dialyzed her today and were able to take off of only 1 liter of fluid. Her significant hypotension makes fluid removal difficult. She will be reassessed daily for dialysis needs, given her hypervolemia. 2. Worsening hypotension. The patient does take midodrine three times daily as an outpatient, and I have increased the dose to 10 mg three times a day. Presently, she is requiring Levophed pressor support via a PICC line, and primary team has already started a sepsis workup. Blood cultures are thus far negative. I am adding on a urine culture. She also has a lactic acidosis, and cardiac workup is pending, as well, including echocardiogram. 3. Decompensated systolic congestive heart failure. Volume status is principally regulated via hemodialysis. However, due to chronic hypotension and hypotension of hemodialysis, the patient has been unable to tolerate significant fluid removal and has subsequently become more hypervolemic. She is dialyzed today with pressor support, and only 1 liter of fluid was able to be removed. She will be reassessed daily for dialysis needs in view of hypervolemia. 4. Atrial fibrillation. The patient is anticoagulated with low-dose Eliquis. She is not on any rate-controlling agents at present because of hypotension. 5. Hypotension. The patient is requiring Levophed pressor support to maintain mean arterial pressure (MAP) of 65. I have thus discontinued the hydrochlorothiazide and the spironolactone, and I have increased her midodrine dose to 10 mg three times a day. 6. Anemia. I am going to defer erythropoietin-stimulating agents to hematology in view of her myeloproliferative disorder. However, hemoglobin was down to 7.5; and in view of her shortness of breath, I have arranged for 1 unit packed and blood cell to be transfused with hemodialysis today. 7. Hypomagnesemia. Supplementation ordered. Keep magnesium above 2 and potassium above 4 in view of atrial fibrillation. 8. Social issues. The patient resides with a friend for many years, and the friend helps her with medications, grocery shopping, meals, and general housework; and the friend has informed the dialysis staff that she will be unable to provide more care for the patient going forward. Button Riveter would likely need to be involved at this point. Will defer to the primary team.
[2020-02-23] VITALS (32 sets, daily range): BP systolic 76–119; BP diastolic 47–68
[2020-02-23] MEDS: PIPERACILLIN/TAZOBACTAM SOD 2.25 GM in D5W MINI-BAG PLUS 50 ML IV SCH ×3 (00:32→15:48)
[2020-02-23] MEDS: SODIUM CHLORIDE 0.9% INJ 10 ML SYR IV PRN (00:33)
[2020-02-23] MEDS: NOREPINEPHRINE BITARTRATE 8 MG in D5W 492 ML IV SCH (00:33)
[2020-02-23] MEDS: SODIUM CHLORIDE 0.9% INJ 10 ML SYR IV SCH ×2 (05:32→18:43)
[2020-02-23 06:13] LABS: HEMATOCRIT 29.2 % (36.0-47.0); HEMOGLOBIN 9.4 g/dl (12.0-15.5); MEAN CORPUSCULAR HEMOGLOBIN 29.3 pg (27.0-33.0); MEAN CORPUSCULAR HGB CONC 32.2 g/dl (32.0-36.5); PLATELET COUNT, AUTOMATED 220 10^3/uL (150-450); RED BLOOD COUNT 3.21 10^6/uL (4.00-5.40)
[2020-02-23 06:14] LABS: WHITE BLOOD COUNT 52.5 10^3/uL (4.0-10.0)
[2020-02-23 06:30] LABS: CALCIUM LEVEL 6.6 MG/DL (8.8-10.2); CREATININE FOR GFR 3.22 MG/DL (0.55-1.30); GLOMERULAR FILTRATION RATE 14.5 (>32); POTASSIUM SERUM 3.9 MEQ/L (3.5-5.1)
[2020-02-23] MEDS: MIDODRINE 5 MG TAB PO SCH ×3 (07:27→15:48)
[2020-02-23] MEDS: COMBIVENT RESPIMAT 100-20MCG INHALER 4GM INH SCH ×4 (07:31→19:19)
--- NOTE | 2020-02-23 07:51 | IPN ---
DATE OF SERVICE: 02/22/2020 SUBJECTIVE: The patient was seen and examined at the bedside today morning in the intensive care unit (ICU). She is hypotensive requiring pressors. She is currently getting Levophed at 10 mcg. She was dialyzed yesterday with Levophed and she also required 1 unit of packed red blood cell (PRBC) transfusion and we were only able to remove 1 liter of blood during dialysis. She is oxygen dependent. She still has anasarca and the patient has worsening leukocytosis. OBJECTIVE: Vital Signs: Temperature is 98.6 degrees Fahrenheit, blood pressure is 110/51, pulse is 84, respiratory of 18, saturating 91% on high-flow nasal cannula at 4 liters. Intake and Output: Urine output is not recorded since overnight. Ultrafiltration with hemodialysis was 1 liter. Weight in the bed scale was 74.9 kg yesterday. PHYSICAL EXAMINATION: General: The patient is awake, alert, oriented x3, laying in bed. Head and Neck Exam: Extraocular muscles intact. Pupils equally round and reactive to light. Mucous membranes are moist. Neck is supple. There is moderately elevated jugular venous distention (JVD). Cardiovascular: S1, S2. Regular rate. 3+ edema of the bilateral lower extremities. Respiratory: Mildly decreased breath sounds at the bases, otherwise no active rales or rhonchi. Abdomen: Soft. Positive bowel sounds. No organomegaly was noted. Abdominal wall edema was noted. Genitourinary: She has an indwelling Lewis catheter. Musculoskeletal: 3+ edema of the bilateral lower extremities. TELECOM ANALYST: No focal deficit. The patient follows commands and moves all extremities. LAB REVIEW: CBC showed a WBC of 62.7, hemoglobin 8.9 and platelets of 264. VBG was done which showed a pH of 7.44. BMP done today morning showed sodium 138, potassium 3.8, chloride 103, bicarb 29, BUN 27, creatinine 2.5. Lactic acid at night time was 3.2 and repeat was 1.7. Calcium is 7.1. C-reactive protein is 6.8. Procalcitonin is 3.24. IMAGING STUDIES: A CAT scan of the chest was done today which showed no definitive infiltrate. There is compressive atelectasis in the lower lobes bilaterally. CAT scan of the abdomen and pelvis was noted which showed diffuse abdominal ascites, splenomegaly, question portal hypertension, dilated inhomogeneous region in the level of the aneudy splenic venous confluence question venous thrombosis versus adenoapthy. Consider contrast and CT scan versus Doppler. CURRENT INPATIENT MEDICATIONS: The patient is currently on Levophed at 10 mcg. She has been started on Zosyn 2.25 grams IV every 8 hours. She is also started on IV vancomycin. The patient is on allopurinol 200 mg daily, Eliquis 2.5 mg by mouth twice a day, calcitriol 0.25 mcg by mouth daily, midodrine 10 mg by mouth three times a day, milk of magnesia and Zofran. ASSESSMENT/PLAN: 1. End-stage renal disease. We dialyzed the patient yesterday with Levophed on at mcg. She is also on midodrine. Unfortunately, it has been getting more and more difficult to dialyze this patient even in outpatient setting because of her anasarca. It is difficult to remove fluid and very low blood pressures. I discussed the further goals of care with the patient today. Given multiple comorbidities including untreated chronic myelocytic leukemia (CML), the patient still wants to continue the aggressive care. However, in my opinion, if the patient remains dependent on the pressors and hypotensive, I would not offer further dialysis to this patient. I will continue to monitor the patient on a daily basis to see if we can continue the intermittent hemodialysis. 2. Septic shock. Cultures are negative so far. However, the patient has a leukocytosis because of CML. She has lactic acidosis. She is requiring pressors. She fulfills the septic shock criteria. She is currently on vancomycin and Zosyn which is adequate. 3. Generalized anasarca. We are trying to optimize the fluid status with the intermittent hemodialysis. However, it is very difficult to remove fluid because of septic shock and chronically low blood pressures. I am reluctant to start continuous venous-venous hemodiafiltration (CVVHDF) in this patient because of her chronic untreated CML and poor prognosis. 4. Atrial fibrillation. The patient is anticoagulated with Eliquis and heart rate is controlled at this time. 5. Anemia secondary to end-stage renal disease and CML. The patient is going to get 1 unit of PRBC transfusion today. 6. CMML, currently not undergoing treatment. The patient overall has a poor prognosis. The rest of the management is as per Hematology/Oncology recommendations. 7. Disposition. If patient survives this admission, she needs to be placed to a intermediate. She is no longer able to take care of herself and the friend that she is living with is reporting caregiver fatigue and she does not want her back in the house. Total critical care time spent in the management of this patient today morning in the ICU was 50 minutes, excluding all the procedures. MARGAUX
--- NOTE | 2020-02-23 08:12 | REP ---
Portable chest x-ray: Single view. History: Hypoxia. Comparison chest x-ray: February 20, 2020. Findings: Right sided PICC line and right internal jugular tunneled central venous lines are seen terminating in the expected location of the SVC. There is a skin fold overlying the left chest. Monitoring electrodes are present. There is plate-like atelectasis in the right base and left hemidiaphragm remains slightly elevated. Interstitial markings are prominent in the bases bilaterally. No new infiltrate. Electronically Signed by Hesham Engle MD 02/23/2020 08:03 A
[2020-02-23] MEDS: CALCITRIOL 0.25 MCG CAP (S0169) PO SCH (09:22)
[2020-02-23] MEDS: DOCUSATE SODIUM 100 MG CAP PO SCH ×2 (09:22→20:05)
[2020-02-23] MEDS: allopurinoL 100 MG TAB PO SCH (09:22)
[2020-02-23] MEDS: APIXABAN 2.5 MG TAB (ELIQUIS) PO SCH ×2 (09:23→20:05)
--- NOTE | 2020-02-23 17:58 | IPN ---
DATE OF SERVICE: 02/23/2020 Patient remains afebrile. Has a slight cough this morning. No shortness of breath, chest pain, pressure, tightness, nausea, vomiting, diarrhea, or abdominal pain. Patient was still on Levophed drip at 4 mcg. Per her nat instructor, patient usually has mean arterial pressure in the 60-65 with midodrine. He is requesting for Levophed to be continued for now until after dialysis, at which point, it may be discontinued. CT chest/abdomen/pelvis has been negative. White count is decreased to 52.5 from prior 62.7. Procalcitonin at 3.24, may be affected by renal failure. Temperature 99.3, pulse 66, respiratory 20, blood pressure 87/50, 93% on 4 liters nasal cannula. Generally, patient is awake, alert, oriented to person and place. Answering questions appropriately. No jugular venous distention (JVD). No thyromegaly. No cervical lymphadenopathy. Moist mucous membranes. Lungs are clear to auscultation. Fine crackles at the bases, otherwise, clear. Air entry is equal bilaterally. Heart: S1, S2. Sinus rhythm. Abdomen is soft, nontender, nondistended. Extremities: No cyanosis, clubbing. Positive 3+ pitting edema. LABORATORY DATA: White count 52.5, hemoglobin 9.4, hematocrit 29, platelet count 220. Metabolic panel reviewed. ASSESSMENT AND PLAN: This is an 84-year-old, DO NOT RESUSCITATE, DO NOT INTUBATE, female with history of CMML followed by Dr. Arboleda at the [facility], not in acute myelogenous leukemic blastic phase, hypertension, chronic obstructive pulmonary disease (COPD), deep venous thrombosis (DVT) on chronic Eliquis, vitamin D deficiency, admitted due to hypertension during dialysis. Patient has no infectious etiology, but required Levophed drip with low-grade temperature of 99. Despite resumption of midodrine, patient remains with mean arterial pressure of about 60-65. Antibiotics were given, Vancomycin and Zosyn. CT chest, abdomen, and pelvis were negative. Vancomycin was discontinued with negative methicillin-resistant Staphylococcus aureus (MRSA) screen. CURRENT ISSUES: 1. Persistent hypotension, despite resumption of midodrine still requiring Levophed drip. On empiric Zosyn despite negative findings on CT chest/abdomen/pelvis, blood cultures. Patient does not urinate. Will discontinue patient's Zosyn once she is off the Levophed drip. 2. End-stage renal disease on maintenance dialysis with chronic hypertension requiring midodrine three times a day. Per nephrology, patient's mean arterial pressure usually runs around 60, therefore, we will continue Levophed until after dialysis and, depending on whether she is able to maintain at least a mean arterial pressure of 55-60 we may be able to discontinue the Levophed and intravenous (IV) antibiotics. 3. Chronic myelomonocytic leukemia (CMML). No acute indication for treatment at this time as patient is not in acute leukemia. Per Dr. Arboleda, continue to keep the hemoglobin 9 and above. 4. Lactic acidosis secondary to hypertension, hyperperfusion. Improved. 5. Reactive airway disease. On Anoro Ellipta. DISPOSITION: May transfer to medical-surgical floor once off Levophed. ARU evaluation and screen. MTDD
[2020-02-24] VITALS (71 sets, daily range): BP systolic 70–135; BP diastolic 39–64
[2020-02-24] MEDS: SODIUM CHLORIDE 0.9% INJ 10 ML SYR IV SCH ×2 (00:51→17:08)
[2020-02-24] MEDS: PIPERACILLIN/TAZOBACTAM SOD 2.25 GM in D5W MINI-BAG PLUS 50 ML IV SCH ×3 (00:51→15:44)
[2020-02-24 04:49] LABS: HEMATOCRIT 29.8 % (36.0-47.0); HEMOGLOBIN 9.6 g/dl (12.0-15.5); MEAN CORPUSCULAR HEMOGLOBIN 29.8 pg (27.0-33.0); MEAN CORPUSCULAR HGB CONC 32.2 g/dl (32.0-36.5); MEAN CORPUSCULAR VOLUME 92.5 fl (80.0-96.0); PLATELET COUNT, AUTOMATED 252 10^3/uL (150-450); RED BLOOD COUNT 3.22 10^6/uL (4.00-5.40)
[2020-02-24 04:58] LABS: WHITE BLOOD COUNT 44.2 10^3/uL (4.0-10.0)
[2020-02-24 05:04] LABS: CALCIUM LEVEL 7.4 MG/DL (8.8-10.2); CREATININE FOR GFR 2.57 MG/DL (0.55-1.30); GLOMERULAR FILTRATION RATE 18.8 (>32); POTASSIUM SERUM 3.8 MEQ/L (3.5-5.1)
--- NOTE | 2020-02-24 05:23 | IPN ---
DATE: 02/23/2020 SUBJECTIVE: Patient was seen and examined at the bedside today morning in the intensive care unit (ICU). She is afebrile, still hypotensive, requiring Levophed at 4 mcg. She continues to be on intravenous (IV) antibiotics. Cultures are still negative so far. Today is patient's day of dialysis, and I will try to dialyze her at the bedside. OBJECTIVE: Vital signs: Temperature is 97.6 degrees Fahrenheit, blood pressure 98/51, pulse is 75, respiratory rate of 20, saturating 89% on high-flow cannula at 4 liters. Intake and output: There is no urine output recorded. Weight on the bed scale is 77.4 kg. PHYSICAL EXAMINATION: General: Patient is awake, alert, oriented times three, laying in bed. She has generalized anasarca. Head and neck exam: Extraocular muscles intact. Pupils equally round and reactive to light. Mucous membranes are moist. Neck is supple. There is moderately elevated jugular venous distention (JVD). Cardiovascular: S1, S2, regular rate. 3+ edema of the bilateral lower extremities. Respiratory: Decreased breath sounds at the bases. Otherwise, no active rales or rhonchi. Abdomen: Is soft. Positive bowel sounds. Nontender. Musculoskeletal: 3+ edema of the bilateral lower extremities. Central nervous system (GREASE RENDERER): No focal deficit. Patient moves all extremities. LAB REVIEW: CBC showed a WBC of 52.5, hemoglobin 9.4, platelets are 220. BMP showed sodium 133, potassium 3.9, chloride 99, bicarbonate 25, BUN 34, creatinine is 3.2, calcium 6.6. IMAGING: A chest x-ray was done today morning, which showed platelike atelectasis in the right base. Left hemidiaphragm remains slightly elevated. CURRENT INPATIENT MEDICATION: Patient's medications were all reviewed by myself. She continues to be on Levophed at 4 mcg. She is on IV Zosyn. I see that vancomycin has been stopped. No other change in the medications today as compared with yesterday. ASSESSMENT AND PLAN: 1. End-stage renal disease. Patient will be dialyzed at the bedside today while the Levophed is running. I will try to remove at least 1 kg of fluid. Once she is hemodynamically stable, I will try to remove more fluid with [id number] daily dialysis and ultrafiltration. 2. Septic shock. Cultures are negative so far. However, fever and leukocytosis is getting better. She continues to be on IV Zosyn. 3. Generalized anasarca. 1 liter of fluid will be removed with dialysis today. Once she is clinically more stable, I will try to get her ascitic tap done as well. 4. Atrial fibrillation. Heart rate is controlled. She is anticoagulated with Eliquis. 5. Anemia secondary to end-stage renal disease and CML. Patient is status post 1 unit packed red blood cell (PRBC). Hemoglobin level is optimal. 6. Chronic myelomonocytic leukemia: Management as per Heme/Onc Total critical care time spent in the management of this patient today morning in the ICU was 40 minutes excluding all the procedures. MTDD
[2020-02-24] MEDS: NOREPINEPHRINE BITARTRATE 8 MG in D5W 492 ML IV SCH (06:28)
[2020-02-24] MEDS: SODIUM CHLORIDE 0.9% INJ 10 ML SYR IV PRN ×2 (06:29→09:23)
[2020-02-24] MEDS: COMBIVENT RESPIMAT 100-20MCG INHALER 4GM INH SCH ×4 (07:23→19:28)
[2020-02-24] MEDS: DOCUSATE SODIUM 100 MG CAP PO SCH ×2 (08:34→20:43)
[2020-02-24] MEDS: CALCITRIOL 0.25 MCG CAP (S0169) PO SCH (08:34)
[2020-02-24] MEDS: APIXABAN 2.5 MG TAB (ELIQUIS) PO SCH (08:35)
[2020-02-24] MEDS: allopurinoL 100 MG TAB PO SCH (08:35)
[2020-02-24] MEDS: MIDODRINE 5 MG TAB PO SCH ×3 (08:35→15:43)
[2020-02-24] MEDS: HYDROCORTISONE 100 MG/2 ML VIAL (J1720 PER 1) IV SCH ×3 (11:00→22:01)
[2020-02-24] MEDS: ACETAMINOPHEN TAB 650MG DOSE (2X325MG) PO PRN ×2 (12:57→17:08)
--- NOTE | 2020-02-24 19:14 | IPN ---
DATE: 02/24/2020 Patient is requiring persistent use of Levophed, mean arterial pressure decreased to 49-55 with discontinuation of Levophed in an attempt to wean. The patient this morning has no new complaints. Denies chest pain, pressure, tightness, cough, nausea, vomiting, diarrhea, abdominal pain, dysuria, urgency, frequency. Had a 100.6 temperature this morning and decreasing white count on IV Zosyn. Previous CT chest, abdomen and pelvis negative for acute source of infection. Vital Signs: Maximum temperature (T max) 100.6, pulse 76, respiratory rate 18, blood pressure 105/59 on Levophed drip, currently at 7.5 mL per hour. Generally, patient is awake, alert, oriented to person, place, answering questions appropriately. No respiratory distress. No jugular venous distention (JVD) or thyromegaly. Lungs are diminished but no wheezing or rales. Heart: S1, S2, sinus rhythm. No murmurs, rubs, or gallops. Abdomen is obese, soft, nontender, nondistended. Extremities: 3+ pitting edema. Skin: Multiple ecchymoses bilateral upper extremities. LABORATORY DATA: White count 44.2, hemoglobin 9.6, hematocrit 29.8, platelet count 252. Sodium 138, potassium 3.8, chloride 103, bicarbonate 27, BUN 26, creatinine 2.57, glucose of 96. IMAGING STUDIES: Chest x-ray 02/23/2020: No new infiltrate. Interstitial markings prominent bilateral bases. ASSESSMENT AND PLAN: This is an 84-year-old, DO NOT RESUSCITATE/DO NOT INTUBATE female with a history of chronic myelomonocytic leukemia (CMML), treated by Dr. Arboleda at [facility], not in acute AML blastic phase, chronic obstructive pulmonary disease (COPD), deep vein thrombosis (DVT), on chronic Eliquis, hypertension, vitamin D deficiency, admitted due to low blood pressure during dialysis with no acute infectious etiology on arrival. Patient, however, despite resumption of midodrine, remained severely hypotensive with mean arterial pressure less than 60 requiring Levophed IV drip and unable to be weaned off. The patient had a low grade temperature 99.9 with increasing need for Levophed. Therefore, the patient was empirically started on vancomycin and Zosyn. Methicillin-resistant Staphylococcus aureus (MRSA) screen was negative and vancomycin was discontinued. Blood cultures, respiratory panel COVID-19 were all negative. Patient had no urine sample. CT chest, abdomen and pelvis had no signs of infectious etiology. Peripherally inserted central catheter (PICC) line was placed on 02/21/2020. Blood cultures are negative. She remains on Levophed drip with mean arterial pressure dripping down into 48 to 55 on attempts to wean the Levophed. IMPRESSION: 1. Fever of unknown origin. No unusual rash. Patient had been placed on Zosyn empirically with some slight improvement in her white count down from 62,000 to 44,000, which is closer to her baseline for CMML. Vancomycin had been discontinued as the patient has had no positive findings. Blood cultures have remained negative. Patient is currently not complaining of any acute issues. Hydrocortisone will be given in light of severe hypotension. ECT stimulation test with measurements of cortisol after cosyntropin testing will be done. 2. End-stage renal disease, on maintenance hemodialysis with disequilibrium syndrome. Patient is maintained on maintenance dialysis. Had been on Levophed due to severe hypotension despite resumption of midodrine. 3. Septic shock, unknown etiology. Continued on empiric IV Zosyn. 4. 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 5. History of deep vein thrombosis (DVT). On chronic Eliquis. MTDD
[2020-02-25] VITALS (18 sets, daily range): BP systolic 84–111; BP diastolic 48–57; O2SAT 92
[2020-02-25] MEDS: PIPERACILLIN/TAZOBACTAM SOD 2.25 GM in D5W MINI-BAG PLUS 50 ML IV SCH ×5 (01:03→23:32)
[2020-02-25] MEDS: NOREPINEPHRINE BITARTRATE 8 MG in D5W 492 ML IV SCH (05:00)
[2020-02-25 05:44] LABS: HEMATOCRIT 28.8 % (36.0-47.0); MEAN CORPUSCULAR HEMOGLOBIN 29.3 pg (27.0-33.0); MEAN CORPUSCULAR HGB CONC 31.3 g/dl (32.0-36.5); MEAN CORPUSCULAR VOLUME 93.8 fl (80.0-96.0); PLATELET COUNT, AUTOMATED 236 10^3/uL (150-450); RED BLOOD COUNT 3.07 10^6/uL (4.00-5.40); WHITE BLOOD COUNT 43.5 10^3/uL (4.0-10.0)
[2020-02-25] MEDS ORDERED: COSYNTROPIN 0.25 MG/ML VIAL (J0834 PER 0.25MG) IV ONE (06:00)
[2020-02-25] MEDS: SODIUM CHLORIDE 0.9% INJ 10 ML SYR IV SCH ×2 (06:13→16:38)
[2020-02-25 07:22] LABS: CALCIUM LEVEL 7.3 MG/DL (8.8-10.2); CREATININE FOR GFR 3.09 MG/DL (0.55-1.30); FREE THYROXINE INDEX 0.4 % (1.3-4.8); GLOMERULAR FILTRATION RATE 15.2 (>32); POTASSIUM SERUM 4.6 MEQ/L (3.5-5.1); THYROID STIMULATING HORMONE 58.6 uIU/ML (0.358-3.740); THYROXINE (T4) 1.3 UG/DL (4.5-12.0)
[2020-02-25] MEDS: COMBIVENT RESPIMAT 100-20MCG INHALER 4GM INH SCH ×4 (07:26→19:45)
[2020-02-25] MEDS: MIDODRINE 5 MG TAB PO SCH ×3 (08:30→14:49)
[2020-02-25] MEDS: allopurinoL 100 MG TAB PO SCH (08:30)
[2020-02-25] MEDS: DOCUSATE SODIUM 100 MG CAP PO SCH ×2 (08:31→19:44)
[2020-02-25] MEDS: CALCITRIOL 0.25 MCG CAP (S0169) PO SCH (08:31)
[2020-02-25] MEDS: ACETAMINOPHEN TAB 650MG DOSE (2X325MG) PO PRN (09:48)
--- NOTE | 2020-02-25 12:13 | IPNPDOC ---
Date Seen The patient was seen on 02/25/20. Progress Note SUBJECTIVE: Overnight, pt remained afebrile. no c/o sob, chest pain, pressure, cough, n/v/d, abd pain. paracentesis to be done on Thursday. Eliquis has been discontinued Thursday02/24/20. No diarrhea. Pt was started on IV HC and levophed iv gtt has been discontinued. Patient continues to be stable with Mean arterial pressure>60. OBJECTIVE: PHYSICAL EXAMINATION Vital Signs: PLS SEE BELOW Generally, patient is awake, alert, oriented to person, place, answering questions appropriately. No respiratory distress. moist mucus membranes No jugular venous distention (JVD) or thyromegaly. Lungs are diminished but no wheezing or rales. Heart: S1, S2, sinus rhythm. No murmurs, rubs, or gallops. Abdomen is obese, soft, nontender, nondistended. (+) fluid wave (+) bowel sounds x 4quadrants. no rebound or guarding Extremities: 3+ pitting edema. Skin: Multiple ecchymoses bilateral upper extremities. LABORATORY DATA: pls see below IMAGING STUDIES: Chest x-ray 02/23/2020: No new infiltrate. Interstitial markings prominent bilateral bases. ASSESSMENT AND PLAN: This is an 84-year-old, DO NOT RESUSCITATE/DO NOT INTUBATE female with a history of chronic myelomonocytic leukemia (CMML), treated by Dr. Arboleda at [facility], not in acute AML blastic phase, chronic obstructive pulmonary disease (COPD), deep vein thrombosis (DVT), on chronic Eliquis, hypertension, vitamin D deficiency, admitted due to low blood pressure during dialysis with no acute infectious etiology on arrival. Patient, however, despite resumption of midodrine, remained severely hypotensive with mean arterial pressure less than 60 requiring Levophed IV drip and unable to be weaned off. The patient had a low grade temperature 99.9 with increasing need for Levophed. Therefore, the patient was empirically started on vancomycin and Zosyn. Methicillin-resistant Staphylococcus aureus (MRSA) screen was negative and vancomycin was discontinued. Blood cultures, respiratory panel COVID-19 were all negative. Patient had no urine sample. CT chest, abdomen and pelvis had no signs of infectious etiology. Peripherally inserted central catheter (PICC) line was placed on 02/21/2020. Blood cultures are negative. She remains on Levophed drip with mean arterial pressure dripping down into 48 to 55 on attempts to wean the Levophed. IMPRESSION: 1. Fever of unknown origin. Tmax on 02/24/20 was 100.6 with plans for paracentesis on Thursday for potential source of septic shock. No unusual rash. Patient had been placed on Zosyn empirically with some slight improvement in her white count down from 62,000 to 43.5 which is closer to her baseline for CMML. Vancomycin had been discontinued as the patient has had no positive findings with negative Blood cultures and MRSA screen negative. Patient is currently not complaining of any acute issues. Hydrocortisone has been started and cosyntropin stimulation test administered today. 2. End-stage renal disease, on maintenance hemodialysis with disequilibrium syndrome. Patient is maintained on maintenance dialysis. Had been on Levophed due to severe hypotension despite resumption of midodrine. Off levophed iv gtt as of 02/25/20. 3. Septic shock,resolved. off levophed iv gtt. still on empiric zosyn, with scheduled paracentesis on Thursday. on midodrine TID. blood cx neg, cxr neg. respiratory panel covid-19 negative. 4. 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 5. History of deep vein thrombosis (DVT). held eliquis for paracentesis on Thursday. 6.CMML not in blastic crisis. Per Dr. Arboleda, pt's medical oncologist, pt may be tried on treatment should she transform into acute leukemia. code status: DNR/DNI. patient wants active treatment for acute medical issues, but does not want intubation, mechanical ventilation, or chest compressions/cpr. Disposition: since she is off levophed iv gtt, may transfer out of the ICU. VS, I&O, 24H, Fishbone Vital Signs/I&O Vital Signs Date Time Temp Pulse Resp B/P (MAP) Pulse Ox O2 Delivery O2 Flow Rate FiO2 02/25/20 10:00 97 93/55 (68) 91 Nasal Cannula 2.0 02/25/20 08:00 97.4 02/25/20 04:00 20 02/21/20 04:00 94 I&O- Last 24 Hours up to 6 AM 02/25/20 06:00 Intake Total 1076.0 ml Output Total 2225 ml Balance -1149.0 ml Laboratory Data 24H LABS Laboratory Tests 2 02/25/20 05:15: Nucleated Red Blood Cells % (auto) 1.4H, Anion Gap 7L, Glomerular Filtration Rate 15.2L, Calcium Level 7.3L, Thyroid Stimulating Hormone (TSH) 58.600H, Free Thyroxine Index 0.4L, Thyroxine (T4) 1.3L, Triiodothyronine (T3) Uptake 34 02/25/20 06:14: 02/25/20 06:46: CBC/BMP Laboratory Tests 02/25/20 05:15 Microbiology Microbiology 02/22/20 Blood Culture - Preliminary, Resulted No Growth after 72 hours. All specime... 02/22/20 Blood Culture - Preliminary, Resulted No Growth after 72 hours. All specime... 02/20/20 Blood Culture - Preliminary, Resulted No Growth after 72 hours. All specime... 02/20/20 Respiratory Virus Panel (PCR) ([facility]) - Final, Complete 02/20/20 Blood Culture - Preliminary, Resulted No Growth after 72 hours. All specime... IRAJ DONALD MD February 25, 2020 12:06
[2020-02-25] MEDS: HYDROCORTISONE 100 MG/2 ML VIAL (J1720 PER 1) IV SCH ×3 (12:15→22:21)
--- NOTE | 2020-02-25 13:15 | IPN ---
DATE OF SERVICE: 02/24/2020 SUBJECTIVE: Patient was seen and examined at the bedside today morning in intensive care unit (ICU). Her Levophed was being weaned off. She was on 1 mcg of Levophed. She is awake and alert. She was dialyzed yesterday; 1 liter of fluid was removed and she has tolerated the dialysis procedure well. OBJECTIVE: Vital Signs: Temperature is 100.6 degrees Fahrenheit, blood pressure 104/63, pulse is 83, respiratory of 18, saturating 90% on nasal cannula at 5 liters. Intake and Output: Urine output recorded is 700 mL since overnight. Weight in the bed scale is 76.9 mL. PHYSICAL EXAMINATION: General: The patient is awake, alert, oriented times three, laying in bed wearing nasal cannula. Head and Neck Exam: Extraocular muscles intact. Pupils equally round and reactive to light. Mucous membranes are moist. Neck is supple. There is moderately elevated jugular venous distention (JVD). Cardiovascular: S1, S2, regular rate. 3+ edema of the bilateral lower extremities. Respiratory: Mildly decreased breath sounds at the bases. Otherwise, no active rales or rhonchi. Abdomen is distended. She has a moderate amount of ascites. Abdominal wall edema was noted. Musculoskeletal: She has 3+ edema of the bilateral lower extremities. Central Nervous System: No focal deficit . She moves bilateral upper extremities. LAB REVIEW: CBC showed WBC of 44.2, hemoglobin 9.6, platelets are 252. BMP showed sodium 138, potassium 3.8, chloride 103, bicarbonate 27, BUN 26, creatinine is 2.5, calcium is 7.4. CURRENT INPATIENT MEDICATIONS: The patient's medications were all reviewed by me. She is on Levophed at 1 mcg. When is saw her she continues to be on IV Zosyn. Eliquis has been stopped. I see that she has been started on hydrocortisone 100 mg IV every 6 hours. ASSESSMENT AND PLAN: 1. End-stage renal disease. The patient was dialyzed yesterday but she has generalized anasarca. I would do the ultrafiltration at the bedside today and try to remove at least 2 liters of fluid while she is on low dose of Levophed, and if she tolerates it well she will get her regular hemodialysis tomorrow morning as well. 2. Septic shock. The patient is still on low dose of Levophed. She is currently on IV Zosyn. Vancomycin has been stopped. Cultures are negative so far. She has persistent leukocytosis but she is known to have CMML, so we cannot ascertain whether the leukocytosis is secondary to infection. 3. Generalized anasarca. The patient will get ultrafiltration done today, and I have also ordered an ascites tap to be done by interventional radiology (IR) and during ascitic tap the patient will be given IV albumin. 4. Atrial fibrillation. Heart rate is controlled. Eliquis is on hold probably because the patient is going for an ascitic tap. 5. Anemia secondary to end-stage renal disease and CMML. Transfuse as needed to keep hemoglobin above 9, 6. Secondary hyperparathyroidism. Continue current dose of calcitriol 0.25 mcg by mouth daily. 7. Urinary retention. The patient required a straight catheterization yesterday; 700 mL of urine came out. I have ordered bladder scans. If the patient has more than 300 mL postvoid residual as before, she will need Lewis catheter placement.
[2020-02-25] MEDS: LEVOTHYROXINE 12.5MCG PER 1/2 TAB (0.0125MG) PO SCH (14:49)
[2020-02-26] MEDS: HYDROCORTISONE 100 MG/2 ML VIAL (J1720 PER 1) IV SCH ×3 (05:37→18:07)
[2020-02-26] MEDS: DOCUSATE SODIUM 100 MG CAP PO SCH ×2 (05:38→20:47)
[2020-02-26] MEDS: SODIUM CHLORIDE 0.9% INJ 10 ML SYR IV SCH ×2 (05:38→18:07)
[2020-02-26] MEDS: LEVOTHYROXINE 12.5MCG PER 1/2 TAB (0.0125MG) PO SCH (05:38)
[2020-02-26] MEDS: allopurinoL 100 MG TAB PO SCH (05:39)
[2020-02-26] MEDS: CALCITRIOL 0.25 MCG CAP (S0169) PO SCH (05:39)
[2020-02-26 06:00] VITALS: BP 112/56
[2020-02-26 06:06] LABS: HEMATOCRIT 29.6 % (36.0-47.0); HEMOGLOBIN 9.4 g/dl (12.0-15.5); MEAN CORPUSCULAR HEMOGLOBIN 29.2 pg (27.0-33.0); MEAN CORPUSCULAR HGB CONC 31.8 g/dl (32.0-36.5); MEAN CORPUSCULAR VOLUME 91.9 fl (80.0-96.0); PLATELET COUNT, AUTOMATED 327 10^3/uL (150-450); RED BLOOD COUNT 3.22 10^6/uL (4.00-5.40)
[2020-02-26 06:20] LABS: WHITE BLOOD COUNT 51.4 10^3/uL (4.0-10.0)
[2020-02-26 06:39] LABS: CALCIUM LEVEL 7.4 MG/DL (8.8-10.2); CREATININE FOR GFR 2.86 MG/DL (0.55-1.30); GLOMERULAR FILTRATION RATE 16.6 (>32); POTASSIUM SERUM 4.2 MEQ/L (3.5-5.1)
[2020-02-26] MEDS: PIPERACILLIN/TAZOBACTAM SOD 2.25 GM in D5W MINI-BAG PLUS 50 ML IV SCH ×3 (06:59→23:46)
[2020-02-26] MEDS: COMBIVENT RESPIMAT 100-20MCG INHALER 4GM INH SCH ×4 (07:04→19:29)
[2020-02-26] MEDS: MIDODRINE 5 MG TAB PO SCH ×3 (07:35→15:01)
--- NOTE | 2020-02-26 08:32 | IPN ---
DATE OF VISIT: 02/25/2020 Mrs. Singh is seen this morning during hemodialysis on her bedside. She is laying in the bed with multiple layers of blankets as she has been feeling cold. She is currently off pressors and blood pressure is in 90s. She did receive midodrine 10 mg this morning and also remains on hydrocortisone 100 mg every 6 hours. Blood cultures have been negative so far. On physical exam, temperature 97.4 degrees Fahrenheit, heart rate 70s per minute. Respiratory rate is 18 per minute and blood pressure is 93/55 mmHg. Oxygen saturation is 91% on 2 liters oxygen. She is pale looking but not in any acute distress. Facial edema is noted. Neck veins are difficult to be assessed. Heart sounds are irregular in rhythm and lungs with diminished breath sounds. Abdomen is soft and somewhat distended. Bowel sounds are present. Extremities have no cyanosis or clubbing. Generalized anasarca is noticed particularly on the lower half of body. Neurologically, she is awake and able to answer questions appropriately. Today's labs show WBC count 43.5, hemoglobin 9.0 and hematocrit 28.8. Platelets 236. Sodium 136, potassium 4.6, CO2 of 26, BUN 37 and creatinine 3.09. Calcium level 7.3. A TSH level was 58.6 and free T4 0.4. She had a Cortrosyn stimulation test done this morning and those results are still pending. PROBLEMS: 1. End-stage renal disease. Patient is dialysis dependent and is being dialyzed today. She is tolerating her dialysis treatment well. 2. Septic shock. Blood pressure seems to be stable and she is currently off pressors. She remains on antibiotics and steroids in addition to midodrine. 3. Generalized anasarca and hypervolemia. Volume status remains significantly decompensated. We are trying to remove about 3 liters of fluid today with dialysis as tolerated. We will plan to perform ultrafiltration again on Thursday. We will continue aggressively removing fluid. 4. Hypothyroidism. Her TSH level is significantly elevated. I will leave up to the intensive care service about replacement therapy. 5. Anemia. At this point, anemia is stable and does not need any urgent intervention. 6. Leukemia. This is chronic and seems stable. She is not in any blastic crisis and no intervention is deemed necessity by her oncology team.
--- NOTE | 2020-02-26 12:57 | IPNPDOC ---
Date Seen The patient was seen on 02/26/20. Progress Note SUBJECTIVE: no new complaitns. no fever, chills, abd pain, n/v. for paracentesis in am. AC held. [id number] on HC and midodrine. no c/o lightheadedness, dizziness. upset that she was not walked or sat on chair for meals yesterday. anxious to go home, and see her "boxer." OBJECTIVE: PHYSICAL EXAMINATION Vital Signs: PLS SEE BELOW Generally, supine in dialysis without use of respiratory accessory muscles. no respiratory distress HEENT:patient is awake, alert, oriented to person, place, answering questions appropriately. moist mucus membranes No jugular venous distention (JVD) or thyromegaly. Lungs are diminished but no wheezing or rales. Heart: S1, S2, sinus rhythm. No murmurs, rubs, or gallops. Abdomen is obese, soft, nontender, nondistended. (+) fluid wave (+) bowel sounds x 4quadrants. no rebound or guarding Extremities: 3+ pitting edema. Skin: Multiple ecchymoses bilateral upper extremities. LABORATORY DATA: pls see below IMAGING STUDIES: Chest x-ray 02/23/2020: No new infiltrate. Interstitial markings prominent bilateral bases. ASSESSMENT AND PLAN: This is an 84-year-old, DO NOT RESUSCITATE/DO NOT INTUBATE female with a history of chronic myelomonocytic leukemia (CMML), treated by Dr. Arboleda at [facility], not in acute AML blastic phase, chronic obstructive pulmonary disease (COPD), deep vein thrombosis (DVT), on chronic Eliquis, hypertension, vitamin D deficiency, admitted due to low blood pressure during dialysis with no acute infectious etiology on arrival. Patient, however, despite resumption of midodrine, remained severely hypotensive with mean arterial pressure less than 60 requiring Levophed IV drip and unable to be weaned off. The patient had a low grade temperature 99.9 with increasing need for Levophed. Therefore, the patient was empirically started on vancomycin and Zosyn. Methicillin-resistant Staphylococcus aureus (MRSA) screen was negative and vancomycin was discontinued. Blood cultures, respiratory panel COVID-19 were all negative. Patient had no urine sample. CT chest, abdomen and pelvis had no signs of infectious etiology. Peripherally inserted central catheter (PICC) line was placed on 02/21/2020. Blood cultures are negative. She remains on Levophed drip with mean arterial pressure dripping down into 48 to 55 on attempts to wean the Levophed. IMPRESSION: 1. Fever of unknown origin, resolved paracentesis on Thursday for potential source of infection. anticoagulation held thursday. on renally dosed iv Zosyn empirically Patient is currently not complaining of any acute issues. Hydrocortisone has been started and cosyntropin stimulation test results still pending. 2. End-stage renal disease, on maintenance hemodialysis with disequilibrium syndrome. Patient is maintained on maintenance dialysis. 3. Septic shock,resolved. off levophed iv gtt. still on empiric zosyn, with scheduled paracentesis on Thursday. on midodrine TID. blood cx neg, cxr neg. respiratory panel covid-19 negative. 4. 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 5. History of deep vein thrombosis (DVT). held eliquis for paracentesis on Thursday. 6.CMML not in blastic crisis. Per Dr. Arboleda, pt's medical oncologist, pt may be tried on treatment should she transform into acute leukemia. 7.Possible Adrenal Insufficiency. awaiting results of cosyntropin stim test. on HC. taper to 50mg iv q6h. wean off if MAP>60. code status: DNR/DNI. patient wants active treatment for acute medical issues, but does not want intubation, mechanical ventilation, or chest compressions/cpr. Disposition: pending clinical improvement with tapering of hydrocortisone 3- 4days. VS[facility] Vital Signs/I&O Vital Signs Date Time Temp Pulse Resp B/P (MAP) Pulse Ox O2 Delivery O2 Flow Rate FiO2 02/26/20 07:35 2.0 02/26/20 06:00 98.2 72 17 112/56 (74) 91 Nasal Cannula 02/21/20 04:00 94 I&O- Last 24 Hours up to 6 AM 02/26/20 06:00 Intake Total 650 ml Output Total 2650 ml Balance -2000 ml Laboratory Data 24H LABS Laboratory Tests 2 02/26/20 05:51: Nucleated Red Blood Cells % (auto) 1.7H, Anion Gap 10, Glomerular Filtration Rate 16.6L, Calcium Level 7.4L CBC/BMP Laboratory Tests 02/26/20 05:51 Microbiology Microbiology 02/22/20 Blood Culture - Preliminary, Resulted No Growth after 72 hours. All specime... 02/22/20 Blood Culture - Preliminary, Resulted No Growth after 72 hours. All specime... 02/20/20 Blood Culture - Final, Complete NO GROWTH AFTER 5 DAYS 02/20/20 Respiratory Virus Panel (PCR) ([facility]) - Final, Complete 02/20/20 Blood Culture - Final, Complete NO GROWTH AFTER 5 DAYS IRAJ DONALD MD February 26, 2020 12:17
--- NOTE | 2020-02-26 13:05 | IPN ---
DATE: Mrs. Dickerson is seen this morning on her bedside. She was transferred out of intensive care unit yesterday to regular floor. She has been hemodynamically stable and feels much better. She is talking about going home. Yesterday, she tolerated dialysis treatment very well and we were able to remove about 2.5 liters of fluid. We decided to perform extra ultrafiltration today due to massive edema and volume overload. She is currently in dialysis. Our aim is to remove about 3 liters of fluid today as tolerated. So far, her blood pressure has been about 100 mmHg systolic. PHYSICAL EXAMINATION: Temperature 98.2 degrees Fahrenheit, heart rate 72 per minute and respiratory rate 16 per minute. Blood pressure 112/56 mmHg and oxygen saturation 91% on 2 liters of oxygen. She has generalized anasarca all over body. Her neck veins are difficult to be assessed. Heart sounds are regular and lungs with diminished breath sounds. Abdomen: Soft and nontender. Bowel sounds are present. Extremities with no cyanosis or clubbing. Generalized edema is present all over her body, particularly on lower half and dependent parts. Neurologically, she is awake, alert and oriented x3. Today's labs show WBC count 51.4, hemoglobin 9.4 and hematocrit 29.6. Platelets 327. Sodium 139, potassium 4.2, CO2 26, BUN 27 and creatinine 2.86. PROBLEMS: 1. Septic shock. Blood pressure has improved and stabilized. She remains on antibiotics but not requiring any pressors. She has been on midodrine 10 mg ;three times a day and we will continue with the same. She is also on hydrocortisone 100 mg every 6 hours at present. 2. End-stage renal disease. The patient is dialysis dependent and she received her regular dialysis yesterday. Her next dialysis will be scheduled for Thursday. 3. Generalized anasarca and volume overload. She is tolerating fluid removal very well and we intend to continue with frequent dialysis/ultrafiltration. Today we are aiming for 3 liters fluid removal, which she is tolerating well so far. 4. Gout. She remains on allopurinol 200 mg daily and is currently asymptomatic. 5. Secondary hyperparathyroidism. The patient has been on calcitriol 0.25 mcg daily which will be continued. 6. Hypothyroidism. Her TSH level was quite high and she has been started on levothyroxine 12.5 mcg daily. Primary care team is managing and TSH will be repeated and those adjusted as needed. 7. Generalized weakness and deconditioning. The patient understands that she will require physical therapy and rehabilitation before she can be discharged. She can probably start some physical therapy evaluation as soon as tomorrow. 8. Leukemia. She has been stable without any acute blastic phase.
[2020-02-26 13:35] VITALS: BP 114/67
[2020-02-26 14:00] VITALS: BP 115/66
[2020-02-26 15:01] VITALS: BP 106/57
[2020-02-26 22:00] VITALS: BP 108/59
[2020-02-27] VITALS (7 sets, daily range): BP systolic 98–120; BP diastolic 56–69
[2020-02-27] MEDS: HYDROCORTISONE 100 MG/2 ML VIAL (J1720 PER 1) IV SCH ×3 (00:42→18:01)
[2020-02-27] MEDS: SODIUM CHLORIDE 0.9% INJ 10 ML SYR IV PRN ×2 (00:43→08:18)
[2020-02-27 05:11] LABS: HEMATOCRIT 29.7 % (36.0-47.0); HEMOGLOBIN 9.3 g/dl (12.0-15.5); MEAN CORPUSCULAR HEMOGLOBIN 29.2 pg (27.0-33.0); MEAN CORPUSCULAR HGB CONC 31.3 g/dl (32.0-36.5); MEAN CORPUSCULAR VOLUME 93.1 fl (80.0-96.0); PLATELET COUNT, AUTOMATED 339 10^3/uL (150-450); RED BLOOD COUNT 3.19 10^6/uL (4.00-5.40)
[2020-02-27 05:16] LABS: WHITE BLOOD COUNT 54.6 10^3/uL (4.0-10.0)
[2020-02-27 05:30] LABS: CREATININE FOR GFR 3.69 MG/DL (0.55-1.30); GLOMERULAR FILTRATION RATE 12.4 (>32); POTASSIUM SERUM 4.5 MEQ/L (3.5-5.1)
[2020-02-27] MEDS: LEVOTHYROXINE 12.5MCG PER 1/2 TAB (0.0125MG) PO SCH (06:08)
[2020-02-27] MEDS: allopurinoL 100 MG TAB PO SCH (06:09)
[2020-02-27] MEDS: SODIUM CHLORIDE 0.9% INJ 10 ML SYR IV SCH ×2 (06:09→18:01)
[2020-02-27] MEDS: DOCUSATE SODIUM 100 MG CAP PO SCH ×2 (06:10→22:05)
[2020-02-27] MEDS: CALCITRIOL 0.25 MCG CAP (S0169) PO SCH (06:10)
[2020-02-27] MEDS: COMBIVENT RESPIMAT 100-20MCG INHALER 4GM INH SCH ×4 (07:20→19:48)
[2020-02-27] MEDS: MIDODRINE 5 MG TAB PO SCH ×3 (07:23→17:18)
[2020-02-27] MEDS: PIPERACILLIN/TAZOBACTAM SOD 2.25 GM in D5W MINI-BAG PLUS 50 ML IV SCH ×3 (07:23→23:00)
[2020-02-27 13:00] LABS: CORTISOL BASELINE 90.9 UG/DL (4.3-22.4)
[2020-02-27 17:02] LABS: SPEC. GRAVITY BODY FLUIDS 1.012 (NOT ESTABLISHED)
[2020-02-27 17:08] LABS: APPEARANCE, BODY FLUID CLOUDY (CLEAR); ASCITES FL COLOR PALE YELLOW (COLORLESS); SOURCE, BODY FLUID ASCITES
[2020-02-27 17:25] LABS: SOURCE, BODY FLUID GLUCOSE ASCITES; SOURCE, BODY FLUID TOT PROTEIN ASCITES; TOTAL PROTEIN, BODY FLUID 1.1 G/DL (NOT ESTABLISHED)
--- NOTE | 2020-02-27 18:46 | IPN ---
DATE: 02/27/2020 The patient has no new complaints, says that she is ready to go home. Her blood pressure has been very well maintained at 106 to 109 systolic, still on tapering doses of hydrocortisone and maintained on her home midodrine dose. Patient denies any fever or chills, cough or shortness of breath. No nausea or vomiting. No abdominal pain. The patient is due to have her abdomen tapped today. She is still on empiric dosing renally dosed every 8 hours. At this time, the patient has been cooperative with physical therapy and anxious to go home. Per physical therapy (PT) recommendations, she is appropriate for rehab. PHYSICAL EXAM: Temperature 97.2, pulse 76, respiratory rate 18, blood pressure 109/58, 92% two liters nasal cannula. Generally, patient is wake, alert, oriented to person, place, answering questions appropriately. No conversational dyspnea. No use of respiratory accessory muscles. Lungs are clear to auscultation. No wheezing, rales or rhonchi. Heart: S1, S2, irregular. Abdomen is obese, soft, nontender, nondistended. Positive bowel sounds. Extremities: Chronic edema, 2+ pitting. LABORATORY DATA: White count 54.6, hemoglobin 9.3, hematocrit 29, platelet count 339. Sodium 136, potassium 4.5, chloride 102, bicarbonate 23, BUN 37, creatinine 3.69, glucose of 115. Microbiology: Blood cultures, respiratory panel negative. CT chest, abdomen and pelvis on 02/22/2020: Negative. No focal source of infection. ASSESSMENT AND PLAN: This is an 84-year-old female, DO NOT RESUSCITATE, DO NOT INTUBATE, history of chronic myelomonocytic leukemia (CMML), treated by Dr. Arboleda, not in acute AML blast phase, chronic obstructive pulmonary disease (COPD), deep vein thrombosis (DVT), on chronic Eliquis, hypertension, vitamin D deficiency, end-stage renal disease, on maintenance hemodialysis, chronic hypotension, on chronic midodrine, presented for admission due to persistent hypotension during hemodialysis. Patient was started on IV Levophed drip as the midodrine was not sufficient to keep her blood pressure with a mean arterial pressure greater than 60. She had a low-grade temperature of 99.9 with increasing need of Levophed once empirically placed on intravenous Zosyn. Vancomycin was discontinued. Patient peaked with a white count of 60,000, decreased while patient was on Zosyn and vancomycin. Vancomycin was discontinued due to methicillin-resistant Staphylococcus aureus (MRSA) negative. CT chest, abdomen and pelvis was negative. Hydrocortisone was started, and the patient underwent cosyntropin stimulation test, the result of which is not available. Patient is maintaining her blood pressure while off Levophed, being diuresed. Her Eliquis had been held due to plans for paracentesis today. Per Dr. Arboleda, insurance will not approve medication for CMML as she is not in acute leukemia. Patient is too weak to go home and currently being evaluated for rehabilitation. ACUTE ISSUES: 1. Fever of unknown origin. Patient has not had any more fevers. She had been one empiric Zosyn to complete a 7-day course. Paracentesis today to check for potential source of infection. Her Eliquis had been held, for history of DVT, last Thursday. 2. Chronic hypotension. On midodrine but required IV Levophed drip and empiric antibiotics. She is currently on hydrocortisone, and her cosyntropin stimulation test results are not finalized. 3. End-stage renal disease. On maintenance dialysis with disequilibrium syndrome. Maintain on maintenance dialysis. Appreciate nephrology management. 4. Septic shock, resolved, off Levophed drip. Still on empiric Zosyn to complete a 7-day course but no source of infection. She is going to have a paracentesis today. CT chest, abdomen and pelvis remain negative. White count is slowly increasing again but no blast transformation as yet. 5. CMML. Monitoring for blast crisis. Dr. Arboleda has been consulted. 6. Possible adrenal insufficiency. Awaiting results of cosyntropin stim test. Currently on hydrocortisone, being tapered and to be weaned off if her mean arterial pressure remains above 60. CODE STATUS: DO NOT RESUSCITATE, DO NOT INTUBATE. She continues to want active treatment, and should she develop acute blastic crisis and transformation to acute leukemia, patient wants to be treated. DISPOSITION: Acute rehab. We are currently tapering hydrocortisone and finishing Zosyn. MTDD
--- NOTE | 2020-02-27 19:13 | REP ---
Ultrasound-guided paracentesis The procedure was performed under the direct supervision of Dr. South. The risks and benefits of the procedure were explained to the patient and informed consent was obtained. The largest pocket of fluid was localized in the left lower quadrant using ultrasound guidance. The skin was prepped and draped in a sterile fashion. 1% lidocaine was used as a local anesthetic. Using ultrasound guidance an 8-Turkmen multi side-hole catheter was inserted using trocar technique. 2600 ml of cloudy yellow fluid was withdrawn and sent to the lab for analysis. The patient tolerated the procedure well and there were no immediate complications. After the appropriate amount of monitored convalescence the patient was discharged from the department. Electronically Signed by WILL Saucedo 02/27/2020 05:29 P Electronically Signed by Ed South MD 02/27/2020 07:04 P
--- NOTE | 2020-02-27 20:05 | IPN ---
DATE: 02/27/2020 Mrs. Dickerson is seen this morning during hemodialysis. She is feeling better and looks much more alert today. She denies any nausea or vomiting. Her generalized edema is improving with fluid removal. Her blood pressure did go down to high 80s during dialysis so we backed off on the goal for fluid removal today. She remains on 2 liters of oxygen. PHYSICAL EXAMINATION: Temperature 97.2 degrees Fahrenheit, heart rate 80 per minute and respiratory rate 18 per minute. Blood pressure at the start of dialysis was 106/58 mmHg and now down to 89/50 mmHg. Her oxygen saturation is 92% on 2 liters oxygen. Head is atraumatic. Facial edema is much better. Neck veins are not abnormally distended. Hemodialysis catheter in right internal jugular vein is intact. Heart sounds are regular and lungs with diminished breath sounds at dependent parts. Abdomen is soft, somewhat protuberant and moderate amount of ascites is present. Edema of abdominal wall and back is also noticed. Extremities have no cyanosis or clubbing. Upper extremity edema has improved significantly and lower extremity edema is also improving. Her feet are still quite swollen. Neurologically she is awake, alert and oriented times three. Today's labs show WBC count 54.6, hemoglobin 9.3, hematocrit 29.7. Sodium 136, potassium 4.5, CO2 of 23, BUN 37 and creatinine 3.69. PROBLEMS: 1. End-stage renal disease. The patient is dialysis dependent and being dialyzed today. She is tolerating her dialysis treatment well. Her electrolytes are stable. 2. Generalized anasarca and volume overload. She received lot of IV fluid when she was in septic shock. Now we are trying to remove fluid with dialysis and ultrafiltration. Today we are aiming for just over 2 liters. The last 3 days she had dialysis every day with negative fluid balance. We have made some progress; however, her blood pressure is low so cannot remove too much fluid in one session. 3. Ascites. She does have ascites and is scheduled for a paracentesis later today. I have advised to give her intravenous albumin prior to paracentesis. 4. Anemnia. Her anemia is stable at present, and we will continue to monitor closely. 5. Chronic myelogenous leukemia. She has been stable without any acute blastic change. 6. Generalized weakness and deconditioning. The patient is likely to require rehab, and I would suggest to have physical and occupational therapy start seeing her as she is making progress with her volume overload.
[2020-02-27] MEDS: APIXABAN 2.5 MG TAB (ELIQUIS) PO SCH (22:05)
[2020-02-28 06:00] VITALS: BP 100/51
[2020-02-28] MEDS: HYDROCORTISONE 100 MG/2 ML VIAL (J1720 PER 1) IV SCH ×2 (06:20→18:02)
[2020-02-28] MEDS: SODIUM CHLORIDE 0.9% INJ 10 ML SYR IV SCH ×2 (06:21→17:25)
[2020-02-28] MEDS: LEVOTHYROXINE 12.5MCG PER 1/2 TAB (0.0125MG) PO SCH (06:21)
[2020-02-28] MEDS: COMBIVENT RESPIMAT 100-20MCG INHALER 4GM INH SCH ×4 (07:18→19:42)
[2020-02-28 07:25] LABS: HEMATOCRIT 30.2 % (36.0-47.0); HEMOGLOBIN 9.4 g/dl (12.0-15.5); MEAN CORPUSCULAR HEMOGLOBIN 29.4 pg (27.0-33.0); MEAN CORPUSCULAR HGB CONC 31.1 g/dl (32.0-36.5); MEAN CORPUSCULAR VOLUME 94.4 fl (80.0-96.0); PLATELET COUNT, AUTOMATED 290 10^3/uL (150-450)
[2020-02-28 07:32] LABS: WHITE BLOOD COUNT 43.8 10^3/uL (4.0-10.0)
[2020-02-28 07:47] LABS: CALCIUM LEVEL 6.9 MG/DL (8.8-10.2); CREATININE FOR GFR 2.92 MG/DL (0.55-1.30); GLOMERULAR FILTRATION RATE 16.3 (>32); POTASSIUM SERUM 3.9 MEQ/L (3.5-5.1)
[2020-02-28 08:03] LABS: ATYPICAL LYMPH 5 % (0-5); LYMPHOCYTES 10 % (16-44); METAMYELOCYTES 3 % (0-0); MONOCYTES 1 % (0-5); MYELOCYTES 1 % (0-0); NEUTROPHILS 67 % (28-66); PLATELET ESTIMATE NORMAL (NORMAL); POLYCHROMASIA 1+
[2020-02-28 08:23] LABS: SOURCE, BODY FLUID ALBUMIN ASCITES
[2020-02-28 09:26] LABS: ALBUMIN 2.5 GM/DL (3.2-5.2); BILIRUBIN,DIRECT 0.2 MG/DL (0.0-0.2); BILIRUBIN,TOTAL 0.5 MG/DL (0.2-1.0); TOTAL PROTEIN 5.3 GM/DL (6.4-8.2)
[2020-02-28] MEDS: allopurinoL 100 MG TAB PO SCH (10:08)
[2020-02-28] MEDS: APIXABAN 2.5 MG TAB (ELIQUIS) PO SCH ×2 (10:08→20:38)
[2020-02-28] MEDS: CALCITRIOL 0.25 MCG CAP (S0169) PO SCH (10:08)
[2020-02-28] MEDS: PIPERACILLIN/TAZOBACTAM SOD 2.25 GM in D5W MINI-BAG PLUS 50 ML IV SCH ×3 (10:08→23:28)
[2020-02-28] MEDS: DOCUSATE SODIUM 100 MG CAP PO SCH ×2 (10:08→20:38)
[2020-02-28] MEDS: MIDODRINE 5 MG TAB PO SCH ×3 (10:08→16:37)
[2020-02-28] MEDS: SODIUM CHLORIDE 0.9% INJ 10 ML SYR IV PRN ×2 (10:56→18:02)
[2020-02-28 14:00] VITALS: BP 109/57
[2020-02-28] MEDS ORDERED: LEVOTHYROXINE 88MCG TABLET (0.088 MG) PO ONE (14:00)
[2020-02-28] MEDS ORDERED: LEVOTHYROXINE 50MCG TABLET (0.05MG) PO ONE (15:30)
--- NOTE | 2020-02-28 16:24 | IPNPDOC ---
Date Seen The patient was seen on 02/28/20. 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 She was anasarca upon presentation and her pressures were unable to be consistently sustained over 65. She was subsequently admitted to the ICU and started on IV levophed. An echocardiogram showed normal left ventricular size and LVEF, and normal CVP. There was some sclerosis of the aortic valve with no associated insufficiency. She was started on empiric IV antibiotics in the form of vancomycin and Zosyn on 02/21. MRSA PCR came back negative and vancomycin was subsequently discontinued. Patient was also started on hydrocortisone in setting of potential adrenal insufficiency. Levophed then was discontinued and she has been maintaining adequate MAPs above 65 on her chronic home midodrine dosing. She is also being dialyzed and overseen by nephrology. She underwent dialysis on consecutive days from 02/23-02/26 with the goal of just over 2 L of fluid removed, while also carefully monitoring her blood pressure so as not to remove too much in a single session. Due to ascites, she underwent a paracentesis on 02/26 which showed WBC 725 with 16.7% PMN. Due to deconditioning and overall weakness, patient is thought to be a good candidate for transfer to acute rehabilitation unit after medical discharge. Jessica was seen and examined this morning by the hospitalist service while sitting upright side of her bed. She was in the midst upper taking any physical therapy session. She expresses a strong desire to go home as soon as possible. Per PT, she experienced significant lightheadedness with drop in systolic blood pressure upon standing earlier in the morning. Overall, she feels as though her strength has improved over her hospital stay and has no acute complaints at this time. OBJECTIVE PHYSICAL EXAMINATION: VITAL SIGNS: Please see below. GENERAL: Elderly female anasarca that has improved somewhat from admission. Sitting at side of bed at time of exam. No acute distress. Alert and oriented 3. HEENT: Normocephalic, atraumatic. Swelling of neck and face has significantly decreased since admission. PERRLA. Noninjected, anicteric sclera. No pharyngeal erythema or exudate. No cervical or supraclavicular lymphadenopathy appreciated. CARDIOVASCULAR: Irregularly irregular rhythm, controlled rate. No rubs or murmurs appreciated. 2+ radial pulses bilaterally. Permacath present in right upper chest. RESPIRATORY: On 2 L supplemental O2 via NC. History crackles at right lung base posteriorly. Diminished volume and breath sounds. Speaking full sentences. Symmetric chest expansion. ABDOMINAL: Soft, nontender with ascites still present but diminished from time of admission. Normoactive bowel sounds throughout. No guarding or rigidity. EXTREMITIES: Upper extremity edema has improved significantly from admission. Bilateral lower extremities 3+ pitting edema with active weeping. NEUROLOGICAL: Awake, alert and oriented 3. Non-dysarthric speech. PSYCHOLOGICAL: Mood and affect appear appropriate LABORATORY DATA, IMAGING STUDIES, MICROBIOLOGY: Please see below. Echocardiogram: 02/21/20- Study is of limited technical quality, the patient is principally in atrial fibrillation. Normal left ventricular (LV) size with normal LV systolic function. Sclerosis of aortic valve resulting in trivial stenosis and no insufficiency. Competent mitral valve. Likely normal central venous pressure. DVT prophylaxis ordered?: No; home eliquis was continued. ASSESSMENT AND PLAN: This is an 84yo female with h/o CMML not in acute blast crisis, ESRD on HD, previous DVT on eliquis, COPD, and htn who presented on 02/19 directly from dialysis for symptomatic hypotension #Chronic myelomonocytic leukemia -follows with Dr. 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 -off levophed and maintaining adequate MAP with home midodrine -Day #7 of zosyn; empiric dosing for possible infectionary process -on hydrocortisone taper for possible adrenal insufficiency; results of ACTH stimulation test show cortisol 90.9, ruling adrenal insufficiency out as possible cause #Anasarca -pt has history of fever, chills, and hypotension; infectionary process cannot be ruled out -paracentesis yesterday: fluid analysis showed WBC 725 with 16.7% PMN equal to value of 116 -pt had no signs on exam concerning of peritonitis -anasarca likely 2/2 third-spacing from decreased albumin (1.9) and overall poor lymphatic flow 2/2 to malignancy #Hypothyroidism -02/24 labs: TSH 58.6, free T4 0.4 -pt had been on 12.5mg PO levothyroxine; dosing increased to 75mg qd beginning tomorrow, with one-time 50mg PO given today #Previous DVT, on Eliquis -home eliquis continued #COPD -O2 titration 88-92% -c/w beta-agonist/muscarinic antagonist medication #Deconditioning -patient has been approved for acute rehab following medical discharge DISPOSITION: Pending continued fluid status improvement and PT clearance, discharge to ARU VS, I&O, 24H, Fishbone Vital Signs/I&O Vital Signs Date Time Temp Pulse Resp B/P (MAP) Pulse Ox O2 Delivery O2 Flow Rate FiO2 02/28/20 14:00 97.2 56 20 109/57 (74) 89 Nasal Cannula 2.0 I&O- Last 24 Hours up to 6 AM 02/28/20 06:00 Intake Total 740.0 ml Output Total 4850 ml Balance -4110.0 ml Laboratory Data 24H LABS Laboratory Tests 2 02/28/20 06:23: Immature Granulocyte % (Auto) , Neutrophils (%) (Auto) , Nucleated Red Blood Cells % (auto) 2.8H, Neutrophils 67H, Band Neutrophils 13H, Lymphocytes (Manual) 10L, Monocytes (Manual) 1, Metamyelocytes 3H, Myelocytes 1H, Atypical Lymphocytes 5, Polychromasia 1+, Platelet Estimate NORMAL, Anion Gap 12, Glomerular Filtration Rate 16.3L, Calcium Level 6.9L, Total Bilirubin 0.5, Direct Bilirubin 0.2, Aspartate Amino Transf (AST/SGOT) 15, Alanine Aminotransferase (ALT/SGPT) 13, Alkaline Phosphatase 120H, Total Protein 5.3L, Albumin 2.5L, Albumin/Globulin Ratio 0.9L CBC/BMP Laboratory Tests 02/28/20 06:23 Microbiology Microbiology 02/27/20 Acid Fast Stain, Received Pending 02/27/20 Mycobacterial Culture, Received Pending 02/27/20 Fungal Smear, Received Pending 02/27/20 Fungal Culture, Received Pending 02/27/20 Gram Stain - Final, Resulted 02/27/20 Body Fluid Culture, Resulted Pending 02/22/20 Blood Culture - Final, Complete NO GROWTH AFTER 5 DAYS 02/22/20 Blood Culture - Final, Complete NO GROWTH AFTER 5 DAYS 02/20/20 Blood Culture - Final, Complete NO GROWTH AFTER 5 DAYS 02/20/20 Respiratory Virus Panel (PCR) (TAMIE) - Final, Complete 02/20/20 Blood Culture - Final, Complete NO GROWTH AFTER 5 DAYS GME ATTESTATION GME ATTESTATION My faculty preceptor for this patient encounter was physically present during the encounter and was fully available. All aspects of the patient interview, examination, medical decision making process, and medical care plan development were reviewed and approved by the faculty preceptor. The faculty preceptor is aware and concurs with the plan as stated in the body of this note and will attest to such by his/her cosignature. ATTENDING NOTE Patient was seen and examined by me and agree with the above assessment and plan TOAN GOODRICH D.O. February 28, 2020 16:24 WILFRIDO CAMACHO MD March 02, 2020 17:51
--- NOTE | 2020-02-28 21:02 | IPN ---
DATE: 02/28/2020 Mrs. Dickerson is seen this morning on her bedside. She is sitting in the chair and feels much better. She is in good spirits and wants to go home. She has been dialyzed 5 days in a row with aggressive fluid removal and peripheral edema has improved significantly. She also had paracentesis yesterday where 2.6 liters of fluid was removed. Over the last 5 days, we have removed about 10 liters of fluid with dialysis and ultrafiltration. She is breathing much better now and her peripheral edema is much improved. PHYSICAL EXAMINATION: Temperature 99.6 degrees Fahrenheit, heart rate 72 per minute, and respiratory rate 17 per minute. Blood pressure 100/50 mmHg and oxygen saturation 92%. Head is atraumatic. Neck is supple and jugular venous distention (JVD) not elevated sitting upright. Dialysis catheter in right internal jugular vein is intact. Heart sounds are regular and lungs with slightly diminished breath sounds at bases. Abdomen: Soft and nontender. Bowel sounds are normal. Extremities: Without any cyanosis or clubbing. Lower extremity edema is now much improved and limited to up to mid calf area. Neurologically, she is awake, alert and at her baseline mentation. Today's labs show WBC count 43.8, hemoglobin 9.4 and hematocrit 30.2. Sodium 139, potassium 3.9, BUN 28, and creatinine 2.92, calcium is 6.9 and albumin 2.5. Her ascitic fluid analysis showed 725 WBCs, but 83% mononuclear cells and only 16.7% polymorphs. Total protein was only 1.1 and glucose 130. PROBLEMS: 1. End-stage renal disease. The patient is aggressively dialyzed for the last 5 days. Today she has no dialysis scheduled, and will plan to dialyze her tomorrow, which is her regular day. 2. Generalized edema and anasarca. We have removed about 10 liters of fluid with dialysis over the last 5 days. Her volume status has improved significantly, and we will try to remove another 2 liters with next dialysis tomorrow. 3. Hypoxemia. Her volume status has improved significantly, and I have optimistic view that is not going to require oxygen for senior living. We hope that she can be weaned off. 4. Anemia. Her anemia is stable at this point and does not need any urgent intervention. 5. Chronic leukemia, unchanged and she is not in any acute situation at present. 6. Generalized weakness and deconditioning. The patient is quite deconditioned and weak. She will benefit from physical and occupational therapy before she can go home. I am encouraged that she has made significant improvement over the last few days.
[2020-02-28 22:00] VITALS: BP 107/57
[2020-02-29 06:00] VITALS: BP 106/63
[2020-02-29] MEDS ORDERED: LEVOTHYROXINE 100MCG TABLET (0.1MG) PO SCH (06:00)
[2020-02-29 06:29] LABS: HEMATOCRIT 31.4 % (36.0-47.0); HEMOGLOBIN 9.9 g/dl (12.0-15.5); MEAN CORPUSCULAR HEMOGLOBIN 29.4 pg (27.0-33.0); MEAN CORPUSCULAR HGB CONC 31.5 g/dl (32.0-36.5); MEAN CORPUSCULAR VOLUME 93.2 fl (80.0-96.0); PLATELET COUNT, AUTOMATED 253 10^3/uL (150-450); RED BLOOD COUNT 3.37 10^6/uL (4.00-5.40)
[2020-02-29 06:30] LABS: WHITE BLOOD COUNT 46.1 10^3/uL (4.0-10.0)
[2020-02-29] MEDS: LEVOTHYROXINE 75MCG TABLET (0.075MG) PO SCH (06:35)
[2020-02-29] MEDS: CALCITRIOL 0.25 MCG CAP (S0169) PO SCH (06:35)
[2020-02-29] MEDS: APIXABAN 2.5 MG TAB (ELIQUIS) PO SCH ×2 (06:35→21:08)
[2020-02-29] MEDS: HYDROCORTISONE 100 MG/2 ML VIAL (J1720 PER 1) IV SCH (06:36)
[2020-02-29] MEDS: DOCUSATE SODIUM 100 MG CAP PO SCH ×2 (06:36→21:08)
[2020-02-29] MEDS: SODIUM CHLORIDE 0.9% INJ 10 ML SYR IV SCH ×2 (06:36→18:57)
[2020-02-29 06:54] LABS: CALCIUM LEVEL 6.9 MG/DL (8.8-10.2); CREATININE FOR GFR 3.43 MG/DL (0.55-1.30); GLOMERULAR FILTRATION RATE 13.5 (>32); POTASSIUM SERUM 4.1 MEQ/L (3.5-5.1)
[2020-02-29 07:10] LABS: BLAST CELLS 1 % (0-0); LYMPHOCYTES 4 % (16-44); METAMYELOCYTES 10 % (0-0); MONOCYTES 11 % (0-5); MYELOCYTES 3 % (0-0); NEUTROPHILS 64 % (28-66); PROMYELOCYTES 2 % (0-0)
[2020-02-29 07:11] LABS: ANISOCYTOSIS 2+; HYPOCHROMASIA 1+; PLATELET ESTIMATE NORMAL (NORMAL)
[2020-02-29 07:12] LABS: POLYCHROMASIA 1+
[2020-02-29] MEDS: COMBIVENT RESPIMAT 100-20MCG INHALER 4GM INH SCH ×4 (07:44→19:28)
[2020-02-29] MEDS: allopurinoL 100 MG TAB PO SCH (08:03)
[2020-02-29] MEDS: MIDODRINE 5 MG TAB PO SCH ×3 (08:03→16:30)
[2020-02-29 13:15] VITALS: BP 108/83
[2020-02-29 14:00] VITALS: BP 107/58
--- NOTE | 2020-02-29 18:18 | IPNPDOC ---
Date Seen The patient was seen on 02/29/20. 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 She was anasarca upon presentation and her pressures were unable to be consistently sustained over 65. She was subsequently admitted to the ICU and started on IV levophed. An echocardiogram showed normal left ventricular size and LVEF, and normal CVP. There was some sclerosis of the aortic valve with no associated insufficiency. She was started on empiric IV antibiotics in the form of vancomycin and Zosyn on 02/21. MRSA PCR came back negative and vancomycin was subsequently discontinued. Patient was also started on hydrocortisone in setting of potential adrenal insufficiency. Levophed then was discontinued and she has been maintaining adequate MAPs above 65 on her chronic home midodrine dosing. She is also being dialyzed and overseen by nephrology. She underwent dialysis on consecutive days from 02/23-02/26 with the goal of just over 2 L of fluid removed, while also carefully monitoring her blood pressure so as not to remove too much in a single session. Due to ascites, she underwent a paracentesis on 02/26 which showed WBC 725 with 16.7% PMN. Due to deconditioning and overall weakness, patient is thought to be a good candidate for transfer to acute rehabilitation unit after medical discharge. Jessica was seen and examined this afternoon by the hospital service while lying upright in bed. She underwent her regularly scheduled Thursday hemodialysis this morning and reports no adverse events. She is anxious to go home and was somewhat dismayed when the prospect of rehabilitation was discussed. She has no consistent family that helps at home, instead relying on an elderly housemate and family friend for assistance. She feels as though her strength and energy continue to improve on daily basis. She continues to eat and drink without any issues. She had two formed bowel movements since our visit yesterday morning. This morning, she denies any chest pain, chest pressure, palpitations, shortness of breath, abdominal pain, nausea, vomiting or diarrhea. We asked Jessica to move from a lying position, to sitting upright on the side of the bed, to eventually standing with assistance of her walker. She continued to require help in moving positions, and endorsed dizziness upon standing. OBJECTIVE PHYSICAL EXAMINATION: VITAL SIGNS: Please see below. GENERAL: Elderly female with anasarca that has improved from her admission last week. Lying upright in bed. No acute distress. Alert and oriented 3. HEENT: Normocephalic, atraumatic. Noninjected, anicteric sclera. No pharyngeal erythema or exudate. Upper dentures present. No cervical or supraclavicular lymphadenopathy appreciated. CARDIOVASCULAR: Irregularly irregular rhythm, controlled rate. No rubs or murmurs appreciated. 2+ radial pulses bilaterally. Permacath present in right upper chest. RESPIRATORY: Inspiratory crackles at right lung base posteriorly with diminished tidal volume. No wheezes or rhonchi appreciated. Speaking full sentences. Symmetric chest expansion. ABDOMINAL: Soft, nontender with ascites still present but diminished from time of admission. Normoactive bowel sounds throughout. No guarding or rigidity. EXTREMITIES: Upper extremity edema has improved significantly from admission. Bilateral lower extremities 3+ pitting edema with active weeping. 3+ b/l pedal edema NEUROLOGICAL: Awake, alert and oriented 3. Non-dysarthric speech. PSYCHOLOGICAL: Mood and affect appear appropriate LABORATORY DATA, IMAGING STUDIES, MICROBIOLOGY: Please see below. Echocardiogram: 02/21/20 Impression- Study is of limited technical quality, the patient is principally in atrial fibrillation. Normal left ventricular (LV) size with normal LV systolic function. Sclerosis of aortic valve resulting in trivial stenosis and no insufficiency. Competent mitral valve. Likely normal central venous pressure. DVT prophylaxis ordered?: Yes; home eliquis continued ASSESSMENT AND PLAN: This is an 84yo female with h/o CMML not in acute blast crisis, ESRD on HD, previous DVT on eliquis, COPD, and htn who presented on 02/19 directly from dialysis for symptomatic hypotension. #Chronic myelomonocytic leukemia -follows with Dr. 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 -off levophed and maintaining adequate MAP with home midodrine -Zosyn for empiric antibiotic coverage was discontinued after 7 days of administration -ACTH stimulation test show cortisol 90.9, ruling adrenal insufficiency out as possible cause; as result, IV hydrocortisone was discontinued #Anasarca -pt has history of fever, chills, and hypotension; infectionary process cannot be ruled out -paracentesis 02/26: fluid analysis showed WBC 725 with 16.7% PMN equal to value of 116 -pt had no signs on exam concerning of peritonitis -anasarca likely 2/2 third-spacing from decreased albumin (1.9) and overall poor lymphatic flow 2/2 to malignancy #Hypothyroidism -02/24 labs: TSH 58.6, free T4 0.4 -pt had been on 12.5mg PO levothyroxine; dosing was increased to 75mg qd beginning today #Previous DVT, on Eliquis -home eliquis continued #COPD -O2 titration 88-92% -c/w beta-agonist/muscarinic antagonist medication #Deconditioning -patient has been approved for acute rehab following medical discharge -On exam today, she remains weak and needed support to move to a sitting position and then a standing one. She felt dizzy upon standing. -Lives with an elderly housemate and does not have consistent family help at home -Current plan is for discharge to ARU tomorrow DISPOSITION: Likely discharge to ARU tomorrow VS[facility]&O[facility] Vital Signs/I&O Vital Signs Date Time Temp Pulse Resp B/P (MAP) Pulse Ox O2 Delivery O2 Flow Rate FiO2 02/29/20 14:00 97.8 60 20 107/58 (74) 97 Room Air 02/28/20 14:00 2.0 I&O- Last 24 Hours up to 6 AM 02/29/20 06:00 Intake Total 830 ml Output Total 0 ml Balance 830 ml Laboratory Data 24H LABS Laboratory Tests 2 02/29/20 06:07: Anion Gap 13, Glomerular Filtration Rate 13.5L, Calcium Level 6.9L 02/29/20 06:08: Immature Granulocyte % (Auto) , Neutrophils (%) (Auto) , Nucleated Red Blood Cells % (auto) 1.9H, Neutrophils 64, Band Neutrophils 5, Lymphocytes (Manual) 4L, Monocytes (Manual) 11H, Metamyelocytes 10H, Myelocytes 3H, Promyelocytes 2H, Blastocytes 1H, Polychromasia 1+, Hypochromasia 1+, Basophilic Stippling 1+, Anisocytosis 2+, Platelet Estimate NORMAL CBC/BMP Laboratory Tests 02/29/20 06:07 02/29/20 06:08 Microbiology Microbiology 02/27/20 Acid Fast Stain, Received Pending 02/27/20 Mycobacterial Culture, Received Pending 02/27/20 Fungal Smear, Received Pending 02/27/20 Fungal Culture, Received Pending 02/27/20 Gram Stain - Final, Complete 02/27/20 Body Fluid Culture - Final, Complete 02/22/20 Blood Culture - Final, Complete NO GROWTH AFTER 5 DAYS 02/22/20 Blood Culture - Final, Complete NO GROWTH AFTER 5 DAYS 02/20/20 Blood Culture - Final, Complete NO GROWTH AFTER 5 DAYS 02/20/20 Respiratory Virus Panel (PCR) (TAMIE) - Final, Complete 02/20/20 Blood Culture - Final, Complete NO GROWTH AFTER 5 DAYS GME ATTESTATION GME ATTESTATION My faculty preceptor for this patient encounter was physically present during the encounter and was fully available. All aspects of the patient interview, examination, medical decision making process, and medical care plan development were reviewed and approved by the faculty preceptor. The faculty preceptor is aware and concurs with the plan as stated in the body of this note and will attest to such by his/her cosignature. ATTENDING NOTE Patient was seen and examined by me and agree with the above assessment and plan TOAN GOODRICH D.O. February 29, 2020 18:18 WILFRIDO CAMACHO MD March 02, 2020 17:51
[2020-02-29] MEDS: SODIUM CHLORIDE 0.9% INJ 10 ML SYR IV PRN (18:58)
[2020-02-29 22:00] VITALS: BP 108/57
[2020-03-01] MEDS: LEVOTHYROXINE 75MCG TABLET (0.075MG) PO SCH (05:35)
[2020-03-01] MEDS: SODIUM CHLORIDE 0.9% INJ 10 ML SYR IV SCH ×2 (05:36→16:58)
--- NOTE | 2020-03-01 05:51 | IPN ---
DATE: Ms. Dickerson is seen this morning on her bedside during hemodialysis. She is feeling better and wants to go home. Her oxygen was removed yesterday and she has been saturating about 92% on room air. Currently during dialysis, option is being used due to risk of hypotension. PHYSICAL EXAMINATION: Temperature 98.5 degrees Fahrenheit, heart rate 82 per minute and respiratory rate 20 per minute. Blood pressure 106/63 mmHg and oxygen saturation 92% on room air. Head is atraumatic. Neck supple and without jugular venous distension (JVD) or thyroid enlargement. Dialysis catheter and right internal jugular vein is intact. Heart sounded is regular in rhythm and lungs sound clear to auscultation. Abdomen is soft and nontender. Bowel sounds are normal. Extremities without any cyanosis or clubbing. Lower extremity edema is limited up to mid calf area. Neurologically, she is awake and at her baseline mentation. Today's labs show white blood count (WBC) 46.1, hemoglobin 9.9 and hematocrit 31.4. Sodium 139, potassium 4.1, CO2 24, BUN 36 and creatinine 3.43. Calcium level was 6.9. PROBLEMS: 1. End-stage renal disease. The patient is being dialyzed today and she is tolerating her dialysis treatment very well. 2. Generalized anasarca and edema. Her volume status has improved significantly and her edema is now limited down to lower extremities up to mid calf area. Two liters fluid removal is being attempted with dialysis today. We have removed more than 10 liters of fluid with dialysis over the last 5-6 days. 3. Generalized weakness and deconditioning. The patient is very weak and will also need rehabilitation. She wants to go home, but is too weak for discharge at this point. She is likely to go to acute rehab unit. 4. Anemia. Her anemia is stable at this point and will continue to monitor closely. 5. Chronic leukemia. No change is noted and it remains stable.
[2020-03-01 06:00] VITALS: BP 103/50
[2020-03-01 06:23] LABS: HEMATOCRIT 30.6 % (36.0-47.0); HEMOGLOBIN 9.7 g/dl (12.0-15.5); MEAN CORPUSCULAR HEMOGLOBIN 29.5 pg (27.0-33.0); MEAN CORPUSCULAR HGB CONC 31.7 g/dl (32.0-36.5); PLATELET COUNT, AUTOMATED 266 10^3/uL (150-450); RED BLOOD COUNT 3.29 10^6/uL (4.00-5.40)
[2020-03-01 06:52] LABS: CALCIUM LEVEL 7.6 MG/DL (8.8-10.2); CREATININE FOR GFR 2.54 MG/DL (0.55-1.30); GLOMERULAR FILTRATION RATE 19.1 (>32); POTASSIUM SERUM 3.6 MEQ/L (3.5-5.1)
[2020-03-01 07:01] LABS: ANISOCYTOSIS 2+; ATYPICAL LYMPH 2 % (0-5); BASOPHILS 3 % (0-1); BLAST CELLS 1 % (0-0); LYMPHOCYTES 7 % (16-44); METAMYELOCYTES 11 % (0-0); MONOCYTES 7 % (0-5); MYELOCYTES 5 % (0-0); NEUTROPHILS 59 % (28-66); PLATELET ESTIMATE NORMAL (NORMAL); PROMYELOCYTES 2 % (0-0)
[2020-03-01 07:03] LABS: GIANT PLATELETS 1+; OVALOCYTES 1+; POLYCHROMASIA 1+
[2020-03-01] MEDS: COMBIVENT RESPIMAT 100-20MCG INHALER 4GM INH SCH ×4 (07:09→19:43)
[2020-03-01] MEDS: DOCUSATE SODIUM 100 MG CAP PO SCH ×2 (08:35→21:07)
[2020-03-01] MEDS: MIDODRINE 5 MG TAB PO SCH ×3 (08:35→16:58)
[2020-03-01] MEDS: allopurinoL 100 MG TAB PO SCH (08:35)
[2020-03-01] MEDS: APIXABAN 2.5 MG TAB (ELIQUIS) PO SCH ×2 (08:35→21:06)
[2020-03-01] MEDS: CALCITRIOL 0.25 MCG CAP (S0169) PO SCH (08:35)
[2020-03-01 14:00] VITALS: BP 111/83
--- NOTE | 2020-03-01 19:00 | IPNPDOC ---
Date Seen The patient was seen on 03/01/20. Progress Note SUBJECTIVE: Patient seen and examined at the bedside this AM. She is very upset about the plan to go to ARU and wishes to go home. She is very adamant about this. She worked with both PT and OT today who both noted that she is very unstable and unsafe to return home on her own. The patient talked to numerous staff members throughout the day but unfortunately could not be convinced to go to the acute rehab unit. She threatened to call her atm technician as she felt she was being held against her will. She demonstrated to myself and to staff that she was unable to walk independently or with the walker safely. She had no other complaints today--she denies any shortness of breath, chest pain, abdominal pain, N/V/D. PHYSICAL EXAMINATION: VITAL SIGNS: Please see below. GENERAL: Elderly female with anasarca that has improved from her admission last week. Lying upright in bed. No acute distress. Alert and oriented 3. HEENT: Normocephalic, atraumatic. Noninjected, anicteric sclera. No pharyngeal erythema or exudate. Upper dentures present. No cervical or supraclavicular lymphadenopathy appreciated. CARDIOVASCULAR: Irregularly irregular rhythm, controlled rate. No rubs or murmurs appreciated. 2+ radial pulses bilaterally. Permacath present in right upper chest. RESPIRATORY: Inspiratory crackles at right lung base posteriorly with diminished tidal volume. No wheezes or rhonchi appreciated. Speaking full sentences. Symmetric chest expansion. ABDOMINAL: Soft, nontender with ascites still present but diminished from time of admission. Normoactive bowel sounds throughout. No guarding or rigidity. EXTREMITIES: Upper extremity edema has improved significantly from admission. B ilateral lower extremities 2+ pitting edema with active weeping. 3+ b/l pedal edema NEUROLOGICAL: Awake, alert and oriented 3. Non-dysarthric speech. PSYCHOLOGICAL: Mood and affect appear appropriate LABORATORY DATA, IMAGING STUDIES, MICROBIOLOGY: Please see below. Echocardiogram: 02/21/20 Impression- Study is of limited technical quality, the patient is principally in atrial fibrillation. Normal left ventricular (LV) size with normal LV systolic function. Sclerosis of aortic valve resulting in trivial stenosis and no insufficiency. Competent mitral valve. Likely normal central venous pressure. 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 PROBLEMS: 1. CML: -No evidence of current blast crisis. -Follows with Dr. Arboleda 2. ESRD on HD MWF: HD today -Electrolytes stable today -Nephrology consulted. Appreciate recommendations. 3. 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 Anasarca: -Paracentesis unrevealing -Likely third spacing 2/2 low albumin 5. Hypothyroidism: -Levothyroxine dose recently increased to 75mg daily 6. Hx DVT: -Continue Eliquis 7. COPD: -Continue home meds 8. Deconditioning: -previous plan to dc to ARU. Will need to determine alternative plan for her tomorrow. VS, I&O, 24H, [facility] Vital Signs/I&O Vital Signs Date Time Temp Pulse Resp B/P (MAP) Pulse Ox O2 Delivery O2 Flow Rate FiO2 03/01/20 14:00 97.2 63 17 111/83 (92) 88 Room Air 02/28/20 14:00 2.0 I&O- Last 24 Hours up to 6 AM 03/01/20 06:00 Intake Total 1045 ml Output Total 2000 ml Balance -955 ml Laboratory Data 24H LABS Laboratory Tests 2 03/01/20 05:56: Immature Granulocyte % (Auto) , Neutrophils (%) (Auto) , Nucleated Red Blood Cells % (auto) 2.1H, Neutrophils 59, Band Neutrophils 3, Lymphocytes (Manual) 7L, Monocytes (Manual) 7H, Basophils (Manual) 3H, Metamyelocytes 11H, Myelocytes 5H, Promyelocytes 2H, Blastocytes 1H, Atypical Lymphocytes 2, Polychromasia 1+, Basophilic Stippling 1+, Anisocytosis 2+, Ovalocytes 1+, Giant Platelets 1+, Platelet Estimate NORMAL, Anion Gap 10, Glomerular Filtration Rate 19.1L, Calcium Level 7.6L CBC/BMP Laboratory Tests 03/01/20 05:56 Microbiology Microbiology 02/27/20 Acid Fast Stain, Received Pending 02/27/20 Mycobacterial Culture, Received Pending 02/27/20 Fungal Smear, Received Pending 02/27/20 Fungal Culture, Received Pending 02/27/20 Gram Stain - Final, Complete 02/27/20 Body Fluid Culture - Final, Complete 02/22/20 Blood Culture - Final, Complete NO GROWTH AFTER 5 DAYS 02/22/20 Blood Culture - Final, Complete NO GROWTH AFTER 5 DAYS 02/20/20 Blood Culture - Final, Complete NO GROWTH AFTER 5 DAYS 02/20/20 Respiratory Virus Panel (PCR) (TAMIE) - Final, Complete 02/20/20 Blood Culture - Final, Complete NO GROWTH AFTER 5 DAYS GME ATTESTATION GME ATTESTATION My faculty preceptor for this patient encounter was physically present during the encounter and was fully available. All aspects of the patient interview, examination, medical decision making process, and medical care plan development were reviewed and approved by the faculty preceptor. The faculty preceptor is aware and concurs with the plan as stated in the body of this note and will attest to such by his/her cosignature. ATTENDING NOTE Patient was seen and examined by me and agree with the above assessment and plan KACEY URIOSTEGUI MD March 01, 2020 19:00 WILFRIDO CAMACHO MD March 02, 2020 17:50
--- NOTE | 2020-03-01 19:32 | IPN ---
DATE: 03/01/2020 Mrs. Dickerson is seen this afternoon on her bedside. She is sitting in the chair. Nursing staff had already warned me the patient is adamant about signing out against medical advice. She has been advised to go to acute rehab, which the patient has categorically denied. She does not want to go to half-way for subacute rehab either. She was dialyzed yesterday, and she tolerated her dialysis treatment very well. PHYSICAL EXAMINATION: Temperature 98.3 degrees Fahrenheit, heart rate 77 per minute and respiratory rate 17 per minute. Blood pressure 103/50 mmHg and oxygen saturation 91% on room air. Head is atraumatic. Neck: Supple and without jugular venous distention (JVD) or thyroid enlargement. Dialysis catheter in right internal jugular vein is intact. Heart sounds irregular and lungs clear to auscultation. Abdomen: Soft and nontender. Bowel sounds normal. Extremities: With minimal lower extremity edema and no cyanosis or clubbing. Neurologically she is awake, alert and at her baseline mentation. Today's labs showed no significant change with WBC count 46.0, hemoglobin 9.7 and hematocrit 30.6. Sodium 140, potassium 3.6, CO2 of 26, BUN 22 and creatinine 2.54. PROBLEMS: 1. End-stage renal disease. The patient was dialyzed yesterday and next dialysis will be scheduled for tomorrow. No urgent need for dialysis today. 2. Anenmia. Her anemia has been stable and unchanged. She is going to follow up as an outpatient. 3. Chronic leukemia. This is also unchanged with chronic leukocytosis and no acute changes noted. 4. Disposition. The patient has been advised repeatedly about the need for rehab; however, she is denying and she wants to go home. I tried to explain to her and repeated multiple times; however, the patient did not want to change her mind and wants to sign out against medical advice. I have warned her about the serious consequences including fall, fracture and need for return to hospital.
[2020-03-01 22:00] VITALS: BP 116/63
[2020-03-02] MEDS: LEVOTHYROXINE 75MCG TABLET (0.075MG) PO SCH (05:52)
[2020-03-02] MEDS: SODIUM CHLORIDE 0.9% INJ 10 ML SYR IV SCH ×2 (05:52→18:14)
[2020-03-02] MEDS: CALCITRIOL 0.25 MCG CAP (S0169) PO SCH (05:53)
[2020-03-02] MEDS: DOCUSATE SODIUM 100 MG CAP PO SCH ×2 (05:53→21:00)
[2020-03-02] MEDS: allopurinoL 100 MG TAB PO SCH (05:53)
[2020-03-02] MEDS: APIXABAN 2.5 MG TAB (ELIQUIS) PO SCH ×2 (05:54→21:14)
[2020-03-02 06:00] VITALS: BP 110/61
[2020-03-02 06:29] LABS: HEMATOCRIT 29.7 % (36.0-47.0); HEMOGLOBIN 8.9 g/dl (12.0-15.5); MEAN CORPUSCULAR VOLUME 96.7 fl (80.0-96.0); PLATELET COUNT, AUTOMATED 205 10^3/uL (150-450); RED BLOOD COUNT 3.07 10^6/uL (4.00-5.40)
[2020-03-02 06:31] LABS: WHITE BLOOD COUNT 43.2 10^3/uL (4.0-10.0)
[2020-03-02 06:43] LABS: ANISOCYTOSIS 1+; LYMPHOCYTES 27 % (16-44); METAMYELOCYTES 3 % (0-0); NEUTROPHILS 67 % (28-66); PLATELET ESTIMATE NORMAL (NORMAL)
[2020-03-02 06:44] LABS: CALCIUM LEVEL 7.4 MG/DL (8.8-10.2); GLOMERULAR FILTRATION RATE 15.8 (>32); POLYCHROMASIA 1+; POTASSIUM SERUM 3.7 MEQ/L (3.5-5.1)
[2020-03-02] MEDS: COMBIVENT RESPIMAT 100-20MCG INHALER 4GM INH SCH ×4 (07:07→19:44)
[2020-03-02] MEDS: MIDODRINE 5 MG TAB PO SCH ×3 (08:07→16:04)
[2020-03-02] MEDS ORDERED: DARBEPOETIN 100 MCG/0.5 ML *DIALYSIS* SYRINGE (J0882) IV SCH (12:15)
[2020-03-02 14:00] VITALS: BP 117/73
--- NOTE | 2020-03-02 16:45 | IPN ---
DATE OF VISIT: 03/02/2020 Mrs. Dickerson is seen this morning during hemodialysis. She is resting comfortably at present. Yesterday, she was adamant about signing out against medical advice but later she changed her mind. Now she wants to go to acute rehab as she is very weak and unable to ambulate. Her volume status has improved significantly with aggressive dialysis and fluid removal. On physical exam, temperature 96.6 degrees Fahrenheit, heart rate 61 per minute and respiratory rate 18 per minute. Blood pressure 110/60 mmHg and oxygen saturation 93% on room air. Head is atraumatic. Neck supple and without jugular venous distention (JVD) or thyroid enlargement. Heart sounds are regular. Lungs sound clear to auscultation. Abdomen is soft and nontender. Bowel sounds are normal. Extremities without any cyanosis or clubbing. Lower extremity edema is almost completely resolved. Today's labs show WBC 43.2, hemoglobin 8.9 and hematocrit 29.7. Sodium 139, potassium 3.7, CO2 of 26, BUN 31 and 3.0. Calcium level is 7.4. PROBLEMS: 1. End-stage renal disease. Patient is being dialyzed today and she is tolerating her dialysis treatment very well. 2. Generalized edema and hypervolemia. Her volume status is now completely corrected. At this point, we will continue to maintain her with hemodialysis. 3. Hypotension. Blood pressure seems to be reasonable with midodrine 10 mg three times a day, which will be continued. 4. Anemia. Her anemia is slightly worse. We will give her Aranesp 100 mcg and continue to monitor her closely. 5. Generalized weakness and deconditioning. Patient was refusing to go to rehab yesterday, however has changed her mind and now is willing to go to acute rehab.
--- NOTE | 2020-03-02 18:59 | IPNPDOC ---
Date Seen The patient was seen on 03/02/20. Progress Note SUBJECTIVE: Patient seen and examined at the bedside this AM. She is still very upset about going to ARU but is now agreeable. She has no other complaints. PHYSICAL EXAMINATION: VITAL SIGNS: Please see below. GENERAL: Elderly female with anasarca that has improved from her admission last week. Lying upright in bed. No acute distress. Alert and oriented 3. HEENT: Normocephalic, atraumatic. Noninjected, anicteric sclera. No pharyngeal erythema or exudate. Upper dentures present. No cervical or supraclavicular lymphadenopathy appreciated. CARDIOVASCULAR: Irregularly irregular rhythm, controlled rate. No rubs or murmurs appreciated. 2+ radial pulses bilaterally. Permacath present in right upper chest. RESPIRATORY: Inspiratory crackles at right lung base posteriorly with diminished tidal volume. No wheezes or rhonchi appreciated. Speaking full sentences. Symmetric chest expansion. ABDOMINAL: Soft, nontender with ascites still present but diminished from time of admission. Normoactive bowel sounds throughout. No guarding or rigidity. EXTREMITIES: Upper extremity edema has improved significantly from admission. Bilateral lower extremities 2+ pitting edema with active weeping. 3+ b/l pedal edema NEUROLOGICAL: Awake, alert and oriented 3. Non-dysarthric speech. PSYCHOLOGICAL: Mood and affect appear appropriate LABORATORY DATA, IMAGING STUDIES, MICROBIOLOGY: Please see below. Echocardiogram: 02/21/20 Impression- Study is of limited technical quality, the patient is principally in atrial fibrillation. Normal left ventricular (LV) size with normal LV systolic function. Sclerosis of aortic valve resulting in trivial stenosis and no insufficiency. Competent mitral valve. Likely normal central venous pressure. 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 PROBLEMS: 1. CML: -No evidence of current blast crisis. -Follows with Dr. Arboleda 2. ESRD on HD MWF: HD today -Electrolytes stable today -Nephrology consulted. Appreciate recommendations. 3. 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 Anasarca: -Paracentesis unrevealing -Likely third spacing 2/2 low albumin 5. Hypothyroidism: -Levothyroxine dose recently increased to 75mg daily 6. Hx DVT: -Continue Eliquis 7. COPD: -Continue home meds VS, I&O, 24H, Fishbone Vital Signs/I&O Vital Signs Date Time Temp Pulse Resp B/P (MAP) Pulse Ox O2 Delivery O2 Flow Rate FiO2 03/02/20 14:00 98.6 57 17 117/73 (88) 98 Room Air 02/28/20 14:00 2.0 I&O- Last 24 Hours up to 6 AM 03/02/20 06:00 Intake Total 810 ml Output Total 0 ml Balance 810 ml Laboratory Data 24H LABS Laboratory Tests 2 03/02/20 06:09: Immature Granulocyte % (Auto) , Neutrophils (%) (Auto) , Nucleated Red Blood Cells % (auto) 1.9H, Neutrophils 67H, Band Neutrophils 3, Lymphocytes (Manual) 27, Metamyelocytes 3H, Polychromasia 1+, Anisocytosis 1+, Platelet Estimate NORMAL, Anion Gap 10, Glomerular Filtration Rate 15.8L, Calcium Level 7.4L CBC/BMP Laboratory Tests 03/02/20 06:09 Microbiology Microbiology 02/27/20 Acid Fast Stain, Received Pending 02/27/20 Mycobacterial Culture, Received Pending 02/27/20 Fungal Smear, Received Pending 02/27/20 Fungal Culture, Received Pending 02/27/20 Gram Stain - Final, Complete 02/27/20 Body Fluid Culture - Final, Complete 02/22/20 Blood Culture - Final, Complete NO GROWTH AFTER 5 DAYS 02/22/20 Blood Culture - Final, Complete NO GROWTH AFTER 5 DAYS GME ATTESTATION GME ATTESTATION My faculty preceptor for this patient encounter was physically present during the encounter and was fully available. All aspects of the patient interview, examination, medical decision making process, and medical care plan development were reviewed and approved by the faculty preceptor. The faculty preceptor is aware and concurs with the plan as stated in the body of this note and will attest to such by his/her cosignature. ATTENDING NOTE Patient was seen and examined by me with the residents. agree with the above assessment and plan . KACEY URIOSTEGUI MD March 02, 2020 18:59 WILFRIDO CAMACHO MD March 03, 2020 16:27
[2020-03-02 22:00] VITALS: BP 109/64
[2020-03-03] MEDS: LEVOTHYROXINE 75MCG TABLET (0.075MG) PO SCH (05:53)
[2020-03-03] MEDS: SODIUM CHLORIDE 0.9% INJ 10 ML SYR IV SCH ×2 (05:53→17:55)
[2020-03-03 06:00] VITALS: BP 112/56
[2020-03-03 06:16] LABS: HEMATOCRIT 29.9 % (36.0-47.0); HEMOGLOBIN 9.4 g/dl (12.0-15.5); MEAN CORPUSCULAR HEMOGLOBIN 29.6 pg (27.0-33.0); MEAN CORPUSCULAR HGB CONC 31.4 g/dl (32.0-36.5); PLATELET COUNT, AUTOMATED 197 10^3/uL (150-450); RED BLOOD COUNT 3.18 10^6/uL (4.00-5.40)
[2020-03-03 06:19] LABS: WHITE BLOOD COUNT 42.4 10^3/uL (4.0-10.0)
[2020-03-03 06:52] LABS: CALCIUM LEVEL 8.3 MG/DL (8.8-10.2); CREATININE FOR GFR 2.14 MG/DL (0.55-1.30); GLOMERULAR FILTRATION RATE 23.3 (>32)
[2020-03-03 07:21] LABS: ANISOCYTOSIS 2+; ATYPICAL LYMPH 2 % (0-5); BASOPHILS 3 % (0-1); LYMPHOCYTES 16 % (16-44); METAMYELOCYTES 5 % (0-0); MONOCYTES 9 % (0-5); MYELOCYTES 5 % (0-0); NEUTROPHILS 57 % (28-66); PLATELET ESTIMATE NORMAL (NORMAL)
[2020-03-03 07:22] LABS: GIANT PLATELETS 1+; POLYCHROMASIA 1+
[2020-03-03] MEDS: COMBIVENT RESPIMAT 100-20MCG INHALER 4GM INH SCH ×2 (07:26→13:17)
[2020-03-03] MEDS: DOCUSATE SODIUM 100 MG CAP PO SCH ×2 (08:24→20:25)
[2020-03-03] MEDS: allopurinoL 100 MG TAB PO SCH (08:26)
[2020-03-03] MEDS: APIXABAN 2.5 MG TAB (ELIQUIS) PO SCH ×2 (08:26→20:25)
[2020-03-03] MEDS: CALCITRIOL 0.25 MCG CAP (S0169) PO SCH (08:26)
[2020-03-03] MEDS: MIDODRINE 5 MG TAB PO SCH ×3 (08:26→16:39)
[2020-03-03 14:00] VITALS: BP 98/60
[2020-03-03] MEDS ORDERED: COMBIVENT RESPIMAT 100-20MCG INHALER 4GM INH PRN (15:00)
--- NOTE | 2020-03-03 17:07 | IPNPDOC ---
Date Seen The patient was seen on 03/03/20. Progress Note SUBJECTIVE: *Jessica was seen and examined this morning by the hospitalist service. She is adamant about going home now and is willing to sign out AMA if need be. We reinforced our concerns and recommendation that she go to ARU for improved conditioning prior to discharge. She had no adverse events overnight, and denies any fever, chills, chest pain, palpitations, shortness of breath, abdominal pain, nausea, or vomiting currently. 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 She was anasarca upon presentation and her pressures were unable to be consistently sustained over 65. She was subsequently admitted to the ICU and started on IV levophed. An echocardiogram showed normal left ventricular size and LVEF, and normal CVP. There was some sclerosis of the aortic valve with no associated insufficiency. She was started on empiric IV antibiotics in the form of vancomycin and Zosyn on 02/21. MRSA PCR came back negative and vancomycin was subsequently discontinued. Patient was also started on hydrocortisone in setting of potential adrenal insufficiency. Levophed then was discontinued and she has been maintaining adequate MAPs above 65 on her chronic home midodrine dosing. She is also being dialyzed and overseen by nephrology. She underwent dialysis on consecutive days from 02/23-02/26 with the goal of just over 2 L of fluid removed, while also carefully monitoring her blood pressure so as not to remove too much in a single session. Due to ascites, she underwent a paracentesis on 02/26 which showed WBC 725 with 16.7% PMN. Due to deconditioning and overall weakness, patient is thought to be a good candidate for transfer to acute rehabilitation unit after medical discharge. OBJECTIVE PHYSICAL EXAMINATION: VITAL SIGNS: Please see below. GENERAL: Elderly female with anasarca that has improved from her admission last week. Lying upright in bed. No acute distress. Alert and oriented 3. HEENT: Normocephalic, atraumatic. Noninjected, anicteric sclera. No pharyngeal erythema or exudate. Upper dentures present. No cervical or supraclavicular lymphadenopathy appreciated. CARDIOVASCULAR: Irregularly irregular rhythm, controlled rate. No rubs or murmurs appreciated. 2+ radial pulses bilaterally. Permacath present in right upper chest. RESPIRATORY: Inspiratory crackles at right lung base posteriorly with diminished tidal volume. No wheezes or rhonchi appreciated. Speaking full sentences. Symmetric chest expansion. ABDOMINAL: Soft, nontender with ascites still present but diminished from time of admission. Normoactive bowel sounds throughout. No guarding or rigidity. EXTREMITIES: Upper extremity edema has improved significantly from admission. Bilateral lower extremities 3+ pitting edema with active weeping. 3+ b/l pedal edema NEUROLOGICAL: Awake, alert and oriented 3. Non-dysarthric speech. PSYCHOLOGICAL: Mood and affect appear appropriate LABORATORY DATA, IMAGING STUDIES, MICROBIOLOGY: Please see below. Echocardiogram: Impression- Study is of limited technical quality, the patient is principally in atrial fibrillation. Normal left ventricular (LV) size with normal LV systolic function. Sclerosis of aortic valve resulting in trivial stenosis and no insufficiency. Competent mitral valve. Likely normal central venous pressure. 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 #Chronic myelomonocytic leukemia -follows with Dr. Arboleda as outpatient -not currently in blast crisis, but oncology feels pt will evolve into CML #ESRD on HD (MWF) via permacath -being followed by nephrology and undergoing inpatient dialysis; primary team appreciates nephrology service's input -electrolytes have remained stable amidst dialysis sessions -had regularly scheduled hemodialysis yesterday, and has had at least 5 dialysis sessions in the past week. Per nephrology, she is now at a good fluid state and is able to maintain on her Thursday, Thursday, Thursday schedule moving forward. #Chronic hypotension likely 2/2 dialysis dysequilibrium syndrome and hypothyroidism -off levophed and maintaining adequate MAP with home midodrine -Zosyn for empiric antibiotic coverage was discontinued after 7 days of administration -ACTH stimulation test show cortisol 90.9, ruling adrenal insufficiency out as possible cause; as result, IV hydrocortisone was discontinued #Anasarca -pt has history of fever, chills, and hypotension; infectionary process cannot be ruled out -paracentesis 02/26: fluid analysis showed WBC 725 with 16.7% PMN equal to value of 116 -pt had no signs on exam concerning of peritonitis -anasarca likely 2/2 third-spacing from decreased albumin (2.5) and overall poor lymphatic flow 2/2 to malignancy #Hypothyroidism -02/24 labs: TSH 58.6, free T4 0.4 -pt had been on 12.5mg PO levothyroxine; dosing was increased to 75mg qd earlier this week. #Previous DVT, on Eliquis -home eliquis continued #COPD -O2 titration 88-92% -c/w beta-agonist/muscarinic antagonist medication #Deconditioning -patient has been approved for acute rehab following medical discharge -On exam today, patient was able to ambulate with assistance of her walker around her room. Her issue continues to be rising from seated position on the toilet and negotiating stairs. She has 3 stairs entering her home. PT documented improvement in her abilities today, but she remains unsafe for home discharge from their perspective. -Lives with an elderly housemate and does not have consistent family help at home -Current plan is for discharge to ARU early next week. Should patient not sign out AMA prior to that. DISPOSITION: Discharge to ARU likely on Thursday or Thursday if pt doesn't sign out AMA prior to that VS, I&O, 24H, Fishbone Vital Signs/I&O Vital Signs Date Time Temp Pulse Resp B/P (MAP) Pulse Ox O2 Delivery O2 Flow Rate FiO2 03/03/20 14:00 98.4 72 17 98/60 (73) 93 Room Air 02/28/20 14:00 2.0 I&O- Last 24 Hours up to 6 AM 03/03/20 06:00 Intake Total 760 ml Output Total 1000 ml Balance -240 ml Laboratory Data 24H LABS Laboratory Tests 2 03/03/20 05:42: Immature Granulocyte % (Auto) , Neutrophils (%) (Auto) , Nucleated Red Blood Cells % (auto) 2.7H, Neutrophils 57, Band Neutrophils 3, Lymphocytes (Manual) 16, Monocytes (Manual) 9H, Basophils (Manual) 3H, Metamyelocytes 5H, Myelocytes 5H, Atypical Lymphocytes 2, Polychromasia 1+, Poikilocytosis , Anisocytosis 2+, Giant Platelets 1+, Platelet Estimate NORMAL, Anion Gap 9, Glomerular Filtration Rate 23.3L, Calcium Level 8.3L CBC/BMP Laboratory Tests 03/03/20 05:42 Microbiology Microbiology 02/27/20 Acid Fast Stain, Received Pending 02/27/20 Mycobacterial Culture, Received Pending 02/27/20 Fungal Smear, Received Pending 02/27/20 Fungal Culture, Received Pending 02/27/20 Gram Stain - Final, Complete 02/27/20 Body Fluid Culture - Final, Complete 02/22/20 Blood Culture - Final, Complete NO GROWTH AFTER 5 DAYS 02/22/20 Blood Culture - Final, Complete NO GROWTH AFTER 5 DAYS GME ATTESTATION GME ATTESTATION My faculty preceptor for this patient encounter was physically present during the encounter and was fully available. All aspects of the patient interview, examination, medical decision making process, and medical care plan development were reviewed and approved by the faculty preceptor. The faculty preceptor is aware and concurs with the plan as stated in the body of this note and will attest to such by his/her cosignature. ATTENDING NOTE Patient seen and examined by me with the residents. Agree with the above assessment and plan TONA GOODRICH D.O. March 03, 2020 17:07 WILFRIDO CAMACHO MD March 03, 2020 17:10
[2020-03-03 17:40] VITALS: BP 109/58
[2020-03-03 22:00] VITALS: BP 109/58
[2020-03-04] MEDS: SODIUM CHLORIDE 0.9% INJ 10 ML SYR IV SCH ×2 (05:36→18:51)
[2020-03-04] MEDS: SODIUM CHLORIDE 0.9% INJ 10 ML SYR IV PRN (05:36)
[2020-03-04] MEDS: LEVOTHYROXINE 75MCG TABLET (0.075MG) PO SCH (05:36)
[2020-03-04 06:00] VITALS: BP 111/86
[2020-03-04 06:25] LABS: HEMATOCRIT 28.6 % (36.0-47.0); HEMOGLOBIN 8.8 g/dl (12.0-15.5); MEAN CORPUSCULAR HEMOGLOBIN 28.9 pg (27.0-33.0); MEAN CORPUSCULAR HGB CONC 30.8 g/dl (32.0-36.5); MEAN CORPUSCULAR VOLUME 93.8 fl (80.0-96.0); PLATELET COUNT, AUTOMATED 195 10^3/uL (150-450); RED BLOOD COUNT 3.05 10^6/uL (4.00-5.40)
[2020-03-04 06:27] LABS: WHITE BLOOD COUNT 42.8 10^3/uL (4.0-10.0)
[2020-03-04 06:38] LABS: CREATININE FOR GFR 2.55 MG/DL (0.55-1.30)
[2020-03-04 08:16] LABS: ANISOCYTOSIS 2+; ATYPICAL LYMPH 4 % (0-5); BASOPHILS 2 % (0-1); EOSINOPHILS 1 % (0-3); GIANT PLATELETS 1+; LYMPHOCYTES 9 % (16-44); METAMYELOCYTES 5 % (0-0); MONOCYTES 10 % (0-5); MYELOCYTES 12 % (0-0); NEUTROPHILS 53 % (28-66); PLATELET ESTIMATE NORMAL (NORMAL); PROMYELOCYTES 1 % (0-0); SMUDGE CELLS 1+
[2020-03-04 08:17] LABS: OVALOCYTES 1+
[2020-03-04] MEDS: allopurinoL 100 MG TAB PO SCH (08:44)
[2020-03-04] MEDS: DOCUSATE SODIUM 100 MG CAP PO SCH ×2 (08:45→20:42)
[2020-03-04] MEDS: CALCITRIOL 0.25 MCG CAP (S0169) PO SCH (08:45)
[2020-03-04] MEDS: APIXABAN 2.5 MG TAB (ELIQUIS) PO SCH ×2 (08:45→20:41)
[2020-03-04] MEDS: MIDODRINE 5 MG TAB PO SCH ×3 (08:45→16:17)
--- NOTE | 2020-03-04 11:33 | IPN ---
DATE: 03/03/2020 SUBJECTIVE: Patient was seen and examined at the bedside today morning. She is afebrile, hemodynamically stable. She was dialyzed yesterday. She tolerated the hemodialysis procedure well, and patient is constantly asking to leave. She wants to go home, and she wants to sign out against medical advice. OBJECTIVE: Vital signs: Temperature is 98.4 degrees Fahrenheit, blood pressure 98/60, pulse is 72, respiratory rate of 17, saturating 93% on room air. Intake and output: The urine output is not recorded. Ultrafiltration with hemodialysis is 1 liter only. Weight on the bed scale is 65.9 kg. PHYSICAL EXAMINATION: General: Patient is awake, alert, oriented times three, laying in bed, in no apparent distress. Head and neck exam: Extraocular muscles intact. Pupils equally round and reactive to light. Mucous membranes are moist. Neck is supple. There is no jugular venous distention (JVD). Cardiovascular: S1, S2, regular rate. 2+ edema of the bilateral lower extremities. Respiratory: Chest is clear to auscultation bilaterally. Bilateral equal air entry. No rales or rhonchi. Abdomen: Is soft. Positive bowel sounds. Mild abdominal wall edema was noted. Musculoskeletal: 2+ edema of the bilateral lower extremities. 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 Power is 5/5 in bilateral upper extremities. LAB REVIEWS: CBC showed WBC 42.4, hemoglobin 9.4, platelets are 197. BMP showed sodium 142, potassium is 4, chloride 104, bicarbonate 29, BUN 19, creatinine is 2.1. CURRENT INPATIENT MEDICATIONS: Patient's medications were all reviewed by me. There is no significant change in the medications today as compared with yesterday. ASSESSMENT AND PLAN: 1. End-stage renal disease. Patient is hemodialysis dependent. She was dialyzed yesterday. She tolerated the hemodialysis procedure well. Next hemodialysis will be done on Thursday. 2. Generalized anasarca. Patient got [id number] ultrafiltration hemodialysis during the whole week last week. Volume status is improving. Further fluid management will be done next week. 3. Chronic hypotension. Continue current dose of midodrine 10 mg by mouth three times a day. 4. Anemia on end-stage renal disease. Continue current dose of Aranesp. Hemoglobin level is stable. Transfuse as needed because of history of hematological malignancy as well. 5. Chronic myelomonocytic leukemia (CMML). Patient follows up with hematology/oncology as outpatient. She has persistent leukocytosis. Currently not on any chemotherapy. 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
--- NOTE | 2020-03-04 13:24 | IPNPDOC ---
Subjective Date Seen The patient was seen on 03/04/20. Subjective Chief Complaint/HPI Pt is an 84 year old female who was brought to the ED from dialysis due to hypotension following HD. Pt reportedly has weakness since starting dialysis one month prior. She is dialyzed MWF. Pt was admitted to the hospitalist service as recommended by nephrology; initially to PCU, however pressures remained <65, was subsequently transferred to the ICU unfortunately with unsuccessful central line placement, eventually receiving Levophed per peripheral IV for pressor support. Continued HD is managed per nephrology. It is felt the pt would benefit from ARU 2/2 persistent weakness but she has resisted thus far. I talked with the pt about ARU admission and she agreed, granted that she would be d/c once she is able to walk up the 3 steps in front of her home independently. Pt reported she has not steps inside the home she has to worry about and she has a housemate who helps her around the home. This is as much as she willing to consider at this time as she is annoyed and wants to go home. No episodes overnight. General: Denies: Chills, Night Sweats, Fatigue, Malaise Constitutional: Denies: Chills, Fever, Night Sweats ENT: Denies: Head Aches Pulmonary: Denies: Dyspnea, Cough Cardiovascular: Denies: Chest Pain, Palpitations, Orthopnea, Paroxysmal Noc. Dyspnea, Lt Headedness Gastrointestinal: Denies: Nausea, Vomiting, Abdominal Pain Genitourinary: Denies: Dysuria Musculoskeletal: Denies: Neck Pain, Back Pain, Joint Pain Neurological: Denies: Weakness, Numbness, Change in speech, Confusion Psych: Denies: Depression, Memory Issues Objective Physical Examination General Exam: Positive: Alert, No Acute Distress Eye Exam: Positive: PERRLA, Conjunctiva & lids normal; Negative: Sclera icteric ENT Exam: Positive: Atraumatic Chest Exam: Positive: Clear to auscultation, Normal air movement Heart Exam: Positive: Rate Normal, Regular Rhythm, Normal S1, Normal S2; Negative: Murmurs, Rubs Telemetry: Positive: No significant arrhythmia Abdomen Exam: Positive: BS Hypoactive, Soft; Negative: Tenderness Extremity Exam: Positive: Edema (2 b/l LEs); Negative: Clubbing, Cyanosis Skin Exam: Positive: Nl turgor and temperature Neuro Exam: Positive: Normal Speech Psych Exam: Positive: Mood NL Assessment /Plan Assessment Pt is an 84 year old female with CMML, not in acute blast phase, ESRD on HD, Hx DVT on Eliquis, COPD, HTN, Vit D deficiency, who presented to the ED 02/19 from dialysis due to hypotension and chills. Presented with anasarca and pressures <65. Pt was admitted to the hospitalist service as recommended by nephrology; initially to PCU where pressures remained frail, was then transferred to the ICU unfortunately with unsuccessful central line placement, eventually receiving Levophed per peripheral IV for pressor support. ECHO showed normal left ventricular size, LVEF and CVP. She was started on IV Vanc and Zosyn empirically on 02/21; eventually Vanc d/c as MRSA screen -ve. Pt further placed on hydrocortisone due to possible renal insufficiency. Levophed has since been d/c and pt maintains decent pressures on at home Midodrine. HD managed per nephrology. Paracentesis performed due to ascites which showed WBC 725n with 16.7% PMN. Pt to be transferred to ARU due to deconditioning and weakness. 1. ESRD on HD -management per nephrology with HD on MWF 2. CMML - not in blast phase - chronic elevated white count, without chemo - follows with Dr. Arboleda as outpatient - not in blast crisis, but has overall poor prognosis 3. Chronic hypotension - likely 2/2 dialysis dysequilibrium syndrome and hypothyroidism - Maintaining MAP >65; pressor discontinued and now continues with home Midodrine. - Started on IV Vanc and Zosyn empirically on 02/21; now d/c 4. Anasarca on presentation -pt has history of fever, chills, and hypotension -paracentesis 02/26: fluid analysis showed WBC 725 with 16.7% PMN equal to value of 116; no evidence of peritonitis on PE -anasarca likely 2/2 third-spacing from decreased albumin (2.5) and overall poor lymphatic flow 2/2 to malignancy 5. Hypothyroidism -02/24 labs: TSH 58.6, free T4 0.4 -previously on 12.5mg PO Synthroid; dosing increased to 75mcg while inpt 6. History of DVT -continue home Eliquis 7. COPD -O2 titration 88-92% -c/w beta-agonist/muscarinic antagonist medication 8. Anemia of chronic disease - Aranesp per nephrology 9. Deconditioning - Pt previously approved for ARU, declining that transfer - She has accepted the transfer today; orders placed DISPOSITION: ARU Plan/VTE VTE Prophylaxis Ordered?: Yes (Eliquis ) VS, I&O, 24H, Fishbone Vital Signs/I&O Vital Signs Date Time Temp Pulse Resp B/P (MAP) Pulse Ox O2 Delivery O2 Flow Rate FiO2 03/04/20 06:00 97.5 89 17 111/86 (94) 89 Room Air 02/28/20 14:00 2.0 I&O- Last 24 Hours up to 6 AM 03/04/20 05:59 Intake Total 650 ml Output Total 0 ml Balance 650 ml Laboratory Data 24H LABS Laboratory Tests 2 03/04/20 05:46: Immature Granulocyte % (Auto) , Neutrophils (%) (Auto) , Nucleated Red Blood Cells % (auto) 3.1H, Neutrophils 53, Band Neutrophils 3, Lymphocytes (Manual) 9L, Monocytes (Manual) 10H, Eosinophils (Manual) 1, Basophils (Manual) 2H, Metamyelocytes 5H, Myelocytes 12H, Promyelocytes 1H, Atypical Lymphocytes 4, Anisocytosis 2+, Ovalocytes 1+, Smudge Cells 1+, Giant Platelets 1+, Platelet Estimate NORMAL, Anion Gap 8, Glomerular Filtration Rate 19.0L, Calcium Level 8.0L CBC/BMP Laboratory Tests 03/04/20 05:46 Microbiology Microbiology 02/27/20 Acid Fast Stain, Received Pending 02/27/20 Mycobacterial Culture, Received Pending 02/27/20 Fungal Smear, Received Pending 02/27/20 Fungal Culture, Received Pending 02/27/20 Gram Stain - Final, Complete 02/27/20 Body Fluid Culture - Final, Complete CHANCE SIMMS PA-C March 04, 2020 13:24
[2020-03-04 14:00] VITALS: BP 104/65
--- NOTE | 2020-03-04 14:39 | IPN ---
DATE OF SERVICE: 03/04/2020 SUBJECTIVE: The patient was seen and examined at the bedside today morning. She is afebrile, hemodynamically stable. wanted to sign out against medical advice, but physical therapy recommended rehabilitation services. She finally agreed to go to rehabilitation today. She otherwise denies any active complaints. OBJECTIVE: Vital signs: Temperature is 97.5 degrees Fahrenheit, blood pressure 111/86, pulse 89, respiratory rate 17, saturating 99% on room air. Intake and Output: Urine output is not recorded. Weight on the bed scale was 65.9 kg yesterday. PHYSICAL EXAMINATION: General: The patient is awake, alert and oriented times three, laying in bed in no apparent distress. Head and Neck Exam: Extraocular muscles intact. Pupils equally round and reactive to light. Mucous membranes are moist. Neck is supple. There is no jugular vein distention. Cardiovascular: S1, S2. Regular rate. 2+ edema of the bilateral lower extremities. Respiratory: Chest is clear to auscultation bilaterally. Bilateral equal air entry. No rales or rhonchi. Abdomen: Soft. Positive bowel sounds. Nontender. No organomegaly. Musculoskeletal: No clubbing or cyanosis. 2+ edema of the extremities as mentioned above. 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 Power is 5/5 in all extremities. LAB REVIEW: CBC showed a WBC of 42.8, hemoglobin 8.8 and platelets 195. BMP showed sodium 140, potassium 4, chloride 103, bicarbonate 29, BUN 27, creatinine 2.5. CURRENT INPATIENT MEDICATIONS: The patient's medications were all reviewed by myself. No significant change in the medications today as compared with yesterday. ASSESSMENT/PLAN: 1. End stage renal disease. The patient will be dialyzed tomorrow morning. I would try to remove at least 2.5 to 3 kg of fluid. Electrolytes are within the acceptable range. 2. Generalized anasarca. The patient got back to back dialysis and ultrafiltation. She still has evidence of volume overload and I would try to remove fluid as tolerated by her blood pressure. 3. Chronic hypotension. Continue current dose of midodrine 10 mg by mouth three times a day. 4. Anemia and end stage renal disease and hematological malignancy. Continue current dose of Aranesp. Transfuse as needed for hemoglobin below 8. 5. Generalized weakness and deconditioning. The patient is being sent to rehabilitation. Nephrology service with continue to follow her in the rehab services. 6. CMML. 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
[2020-03-04 22:00] VITALS: BP 127/63
[2020-03-05] MEDS: CALCITRIOL 0.25 MCG CAP (S0169) PO SCH (05:56)
[2020-03-05] MEDS: allopurinoL 100 MG TAB PO SCH (05:56)
[2020-03-05] MEDS: SODIUM CHLORIDE 0.9% INJ 10 ML SYR IV SCH ×2 (05:57→18:05)
[2020-03-05] MEDS: APIXABAN 2.5 MG TAB (ELIQUIS) PO SCH ×2 (05:57→20:11)
[2020-03-05] MEDS: LEVOTHYROXINE 75MCG TABLET (0.075MG) PO SCH (05:57)
[2020-03-05] MEDS: DOCUSATE SODIUM 100 MG CAP PO SCH ×2 (05:57→20:11)
[2020-03-05] MEDS: SODIUM CHLORIDE 0.9% INJ 10 ML SYR IV PRN (05:58)
[2020-03-05 06:00] VITALS: BP 111/56
[2020-03-05 06:45] LABS: HEMATOCRIT 28.7 % (36.0-47.0); MEAN CORPUSCULAR HEMOGLOBIN 29.2 pg (27.0-33.0); MEAN CORPUSCULAR HGB CONC 31.4 g/dl (32.0-36.5); MEAN CORPUSCULAR VOLUME 93.2 fl (80.0-96.0); PLATELET COUNT, AUTOMATED 178 10^3/uL (150-450); RED BLOOD COUNT 3.08 10^6/uL (4.00-5.40)
[2020-03-05 06:47] LABS: WHITE BLOOD COUNT 45.1 10^3/uL (4.0-10.0)
[2020-03-05 06:58] LABS: CALCIUM LEVEL 7.7 MG/DL (8.8-10.2); CREATININE FOR GFR 2.95 MG/DL (0.55-1.30); GLOMERULAR FILTRATION RATE 16.1 (>32); POTASSIUM SERUM 4.1 MEQ/L (3.5-5.1)
[2020-03-05 07:12] LABS: ATYPICAL LYMPH 2 % (0-5); BASOPHILS 5 % (0-1); BLAST CELLS 2 % (0-0); EOSINOPHILS 1 % (0-3); LYMPHOCYTES 15 % (16-44); METAMYELOCYTES 8 % (0-0); MONOCYTES 11 % (0-5); MYELOCYTES 4 % (0-0); NEUTROPHILS 45 % (28-66)
[2020-03-05 07:15] LABS: ANISOCYTOSIS 2+; GIANT PLATELETS 1+; PLATELET ESTIMATE NORMAL (NORMAL)
[2020-03-05 07:16] LABS: OVALOCYTES 1+; POLYCHROMASIA 1+
[2020-03-05] MEDS: MIDODRINE 5 MG TAB PO SCH ×4 (07:51→18:05)
--- NOTE | 2020-03-05 08:54 | IPNPDOC ---
Date Seen The patient's chart was reviewed on 03/05/20. Progress Note Hematology/Oncology Chart and labs reviewed. Agree with Dr. Arboleda's initial assessment Prognosis from CMML poor. Blood counts stable Expect some component of PRBC transfusion dependence despite appropriate use of erythropoietin growth factor support Nothing to add at this time We will follow along peripherally with you Ivosidenib would not help at current juncture given co-morbid, active medical issues and this drug has not been studied in individuals on dialysis. Furthermo re, kinetics of blood counts have been quite stable. Dr. Deal to take over care of this patient once he arrives. Please call us with any questions. VS, I&O, 24H, Fishbone Vital Signs/I&O Vital Signs Date Time Temp Pulse Resp B/P (MAP) Pulse Ox O2 Delivery O2 Flow Rate FiO2 03/05/20 06:00 98.6 77 17 111/56 (74) 93 Room Air 02/28/20 14:00 2.0 I&O- Last 24 Hours up to 6 AM 03/05/20 06:00 Intake Total 590 ml Output Total 450 ml Balance 140 ml Laboratory Data 24H LABS Laboratory Tests 2 03/05/20 06:27: Immature Granulocyte % (Auto) , Neutrophils (%) (Auto) , Nucleated Red Blood Cells % (auto) 4.5H, Neutrophils 45, Band Neutrophils 7, Lymphocytes (Manual) 15L, Monocytes (Manual) 11H, Eosinophils (Manual) 1, Basophils (Manual) 5H, Metamyelocytes 8H, Myelocytes 4H, Blastocytes 2H, Atypical Lymphocytes 2, Polychromasia 1+, Anisocytosis 2+, Ovalocytes 1+, Giant Platelets 1+, Platelet Estimate NORMAL, Anion Gap 8, Glomerular Filtration Rate 16.1L, Calcium Level 7.7L CBC/BMP Laboratory Tests 03/05/20 06:27 Microbiology Microbiology 02/27/20 Acid Fast Stain, Received Pending 02/27/20 Mycobacterial Culture, Received Pending 02/27/20 Fungal Smear, Received Pending 02/27/20 Fungal Culture, Received Pending 02/27/20 Gram Stain - Final, Complete 02/27/20 Body Fluid Culture - Final, Complete PAM HOFF MD March 05, 2020 08:54
--- NOTE | 2020-03-05 14:39 | IPNPDOC ---
Date Seen The patient was seen on 03/05/20. Progress Note SUBJECTIVE: *Jessica was seen and examined this morning while lying in bed. She is scheduled to go for hemodialysis this afternoon. She seems to be more agreeable to going to a RU upon discharge, the medical floor to improve conditioning prior to ultimate discharge. 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 She was anasarca upon presentation and her pressures were unable to be consistently sustained over 65. She was subsequently admitted to the ICU and started on IV levophed. An echocardiogram showed normal left ventricular size and LVEF, and normal CVP. The re was some sclerosis of the aortic valve with no associated insufficiency. She was started on empiric IV antibiotics in the form of vancomycin and Zosyn on 02/21. MRSA PCR came back negative and vancomycin was subsequently discontinued. Patient was also started on hydrocortisone in setting of potential adrenal insufficiency. Levophed then was discontinued and she has been maintaining adequate MAPs above 65 on her chronic home midodrine dosing. She is also being dialyzed and overseen by nephrology. She underwent dialysis on consecutive days from 02/23-02/26 with the goal of just over 2 L of fluid removed, while also carefully monitoring her blood pressure so as not to remove too much in a single session. Due to ascites, she underwent a paracentesis on 02/26 which showed WBC 725 with 16.7% PMN. Due to deconditioning and overall weakness, patient is thought to be a good candidate for transfer to acute rehabilitation unit after medical discharge. OBJECTIVE PHYSICAL EXAMINATION: VITAL SIGNS: Please see below. GENERAL: Elderly female with anasarca that has improved from her admis gaviota last week. Lying upright in bed. No acute distress. Alert and oriented 3. HEENT: Normocephalic, atraumatic. Noninjected, anicteric sclera. Scattered bruising over her face that's been present since admission (is on home eliquis). CARDIOVASCULAR: Irregularly irregular rhythm, controlled rate. No rubs or murmurs appreciated. 2+ radial pulses bilaterally. Permacath present in right upper chest. RESPIRATORY: Inspiratory crackles at right lung base posteriorly with diminished tidal volume. No wheezes or rhonchi appreciated. Speaking full sentences. Symmetric chest expansion. ABDOMINAL: Soft, nontender with ascites still present but diminished from time of admission. Normoactive bowel sounds throughout. No guarding or rigidity. EXTREMITIES: Upper extremity edema has improved significantly from admission. Bilateral lower extremities pitting edema, 3+ LLE from mid-leg distally and 1+ RLE from ankle distally over foot. There is associated active weeping of b/l LE. NEUROLOGICAL: Awake, alert and oriented 3. Non-dysarthric speech. PSYCHOLOGICAL: Mood and affect appear appropriate LABORATORY DATA, IMAGING STUDIES, MICROBIOLOGY: Please see below. Echocardiogram: Impression- Study is of limited technical quality, the patient is principally in atrial fibrillation. Normal left ventricular (LV) size with normal LV systolic function. Sclerosis of aortic valve resulting in trivial stenosis and no insufficiency. Competent mitral valve. Likely normal central venous pressure. DVT prophylaxis ordered?: No; home eliquis contd. ASSESSMENT AND PLAN: This is an 84yo female with h/o CMML not in acute blast crisis, ESRD on HD, previous DVT on eliquis, COPD, and htn who presented on 02/19 directly from dialysis for symptomatic hypotension. #Chronic myelomonocytic leukemia (CMML) -follows with Dr. Arboleda as outpatient -not currently in blast crisis with stable blood counts, but oncology feels pt will evolve into CML -per onology, CMML prognosis is poor and there will likely be PRBC transfusion dependence moving forward 2/2 CMML despite EPO growth factor support -Dr. Deal will take over pt's outpt oncology care from Dr. Arboleda once he arrives #ESRD on HD (MWF) via permacath -being followed by nephrology and undergoing inpatient dialysis; primary team appreciates nephrology service's input -electrolytes have remained stable amidst dialysis sessions -scheduled for regular Thursday, hemodialysis afternoon. Per nephrology, she is now at a good fluid state and is able to maintain on her Thursday, Thursday, Thursday schedule moving forward. #Chronic hypotension likely 2/2 ESRD and hypothyroidism, resolved -off levophed and has maintained adequate MAP with home midodrine for past week- plus #Anasarca -Significantly improved now versus 2 weeks ago upon admission; per nephrology, patient's fluid status is at a point where she will be maintained on her Thursday, Thursday, Thursday hemodialysis moving forward -anasarca likely 2/2 third-spacing from decreased albumin (2.5) and overall poor lymphatic flow 2/2 to malignancy -paracentesis 02/26: fluid analysis showed WBC 725 with 16.7% PMN equal to value of 116 -pt had no signs on exam concerning of peritonitis #Hypothyroidism -02/24 labs: TSH 58.6, free T4 0.4 -pt had been on 12.5mg PO levothyroxine; dosing was increased to 75mg qd last week. #Previous DVT, on Eliquis -home eliquis continued #COPD -O2 titration 88-92% -c/w beta-agonist/muscarinic antagonist medication #Deconditioning -patient has been approved for acute rehab following medical discharge -Lives with an elderly housemate and does not have consistent family help at home -Current plan is for discharge to ARU likely tomorrow. Patient is now more amenable to the option of ARU after multiple days threatening to sign out AMA DISPOSITION: Discharge to ARU likely tomorrow Attending attestation: I evaluated and examined the patient in person; I discussed the care with Resident in detail and agree with the plan above. VS, I&O, 24H, Fishbone Vital Signs/I&O Vital Signs Date Time Temp Pulse Resp B/P (MAP) Pulse Ox O2 Delivery O2 Flow Rate FiO2 03/05/20 06:00 98.6 77 17 111/56 (74) 93 Room Air 02/28/20 14:00 2.0 I&O- Last 24 Hours up to 6 AM 03/05/20 05:59 Intake Total 550 ml Output Total 350 ml Balance 200 ml Laboratory Data 24H LABS Laboratory Tests 2 03/05/20 06:27: Immature Granulocyte % (Auto) , Neutrophils (%) (Auto) , Nucleated Red Blood Cells % (auto) 4.5H, Neutrophils 45, Band Neutrophils 7, Lymphocytes (Manual) 15L, Monocytes (Manual) 11H, Eosinophils (Manual) 1, Basophils (Manual) 5H, Metamyelocytes 8H, Myelocytes 4H, Blastocytes 2H, Atypical Lymphocytes 2, Polychromasia 1+, Anisocytosis 2+, Ovalocytes 1+, Giant Platelets 1+, Platelet Estimate NORMAL, Anion Gap 8, Glomerular Filtration Rate 16.1L, Calcium Level 7.7L CBC/BMP Laboratory Tests 03/05/20 06:27 Microbiology Microbiology 02/27/20 Acid Fast Stain, Received Pending 02/27/20 Mycobacterial Culture, Received Pending 02/27/20 Fungal Smear, Received Pending 02/27/20 Fungal Culture, Received Pending 02/27/20 Gram Stain - Final, Complete 02/27/20 Body Fluid Culture - Final, Complete TOAN GOODRICH D.O. March 05, 2020 14:39 JUANY MUÑOZ MD March 05, 2020 22:05
--- NOTE | 2020-03-05 17:43 | IPN ---
DATE: 03/05/2020 SUBJECTIVE: The patient was seen and examined at the bedside today morning. She is afebrile, hemodynamically stable. She denies any active complaints, and the patient is going to be transferred to rehabilitation unit soon. OBJECTIVE: Vital signs: Temperature is 98.6 degrees Fahrenheit, blood pressure 111/56, pulse is 77, respiratory rate 17, saturating 93% on room air. Intake and output: Urine output recorded in 300 mL. Weight in the bed scale is not available. PHYSICAL EXAMINATION: GENERAL: The patient is awake, alert, oriented times three, lying in bed in no apparent distress. HEAD AND NECK: Extraocular muscles intact. Pupils equally round and reactive to light. Mucous membranes are moist. Neck is supple. There is no jugular venous distention (JVD). CARDIOVASCULAR: S1, S2, regular rate. Edema 2+ of the bilateral extremities. She has a right internal jugular (IJ) tunnel hemodialysis catheter. RESPIRATORY: Chest is clear to auscultation bilaterally. Bilateral equal air entry. No rales or rhonchi. Positive bowel sounds. Mild amount of abdominal wall edema was noted. MUSCULOSKELETAL: Edema 2+ in the lower extremities; otherwise, no clubbing or stenosis. CENTRAL NERVOUS SYSTEM: No focal deficit. Power is 5/5 in all extremities. LABORATORY REVIEW: CBC showed a WBC of 45.1, hemoglobin is 9, platelets are 178. BMP showed sodium 139, potassium 4.1, chloride 103, bicarbonate 28, BUN 35, creatinine is 2.9. CURRENT INPATIENT MEDICATIONS: The patient medications were all reviewed by myself. There is no significant change in the medications today as compared with yesterday. ASSESSMENT AND PLAN: 1. End-stage renal disease. The patient will be dialyzed today. I will try to remove at least 3 kg of fluid as tolerated by her blood pressure. 2. Generalized anasarca. It is being optimized with dialysis. If she needs an extra ultrafiltration session tomorrow, I would do it, depending upon availability of the schedule. 3. Chronic hypotension. Continue current dose of the midodrine 10 mg by mouth three times a day. 4. Anemia secondary to end-stage renal disease and hematological malignancy. The patient continues to be on Aranesp. Hemoglobin level is optimal. Transfuse as needed for hemoglobin below 8. 5. Chronic myelomonocytic leukemia (CMML). Currently not on any chemotherapy. Management is as per hematology/oncology. . 6. Generalized weakness and deconditioning. The patient agreed to go to rehabilitation unit today. Neurology service will continue follow.
[2020-03-05 22:00] VITALS: BP 115/63
[2020-03-06] MEDS: SODIUM CHLORIDE 0.9% INJ 10 ML SYR IV SCH (05:25)
[2020-03-06] MEDS: LEVOTHYROXINE 75MCG TABLET (0.075MG) PO SCH (05:30)
[2020-03-06 06:00] VITALS: BP 116/63
[2020-03-06 06:22] LABS: CALCIUM LEVEL 8.1 MG/DL (8.8-10.2); CREATININE FOR GFR 2.13 MG/DL (0.55-1.30); GLOMERULAR FILTRATION RATE 23.4 (>32); POTASSIUM SERUM 3.8 MEQ/L (3.5-5.1)
[2020-03-06] MEDS: CALCITRIOL 0.25 MCG CAP (S0169) PO SCH (08:28)
[2020-03-06] MEDS: allopurinoL 100 MG TAB PO SCH (08:28)
[2020-03-06] MEDS: MIDODRINE 5 MG TAB PO SCH ×2 (08:28→11:25)
[2020-03-06] MEDS: APIXABAN 2.5 MG TAB (ELIQUIS) PO SCH (08:28)
[2020-03-06 08:29] VITALS: BP 107/61
[2020-03-06] MEDS: DOCUSATE SODIUM 100 MG CAP PO SCH (08:29)
[2020-03-06] MEDS ORDERED: MIDO5TA PO (10:55)
[2020-03-06] MEDS ORDERED: LEVO75TA4 PO (10:55)
[2020-03-06 11:25] VITALS: BP 110/62
--- NOTE | 2020-03-14 19:45 | DS.PDOC ---
Discharge Summary General Date of Admission February 20, 2020 at 21:38 Date of Discharge Friday, March 06, 2020 Primary Care Physician: Sarbjit Kaplan MD [facility] Attending Physician: JUANY MUÑOZ MD Specialist/Consultants Involve: DUKE VALDEZ MD Specialist/Consultants Involve Dr. Brittanie Paniagua M.D. Nephrology; Dr. Gigi Ozuna M.D. and Dr. Fer Matos M.D. of hematology and oncology. Discharge Summary PROCEDURES PERFORMED DURING STAY: Placement of central venous catheter, 02/21/2020 Paracentesis, 02/27/20 Multiple hemodialysis treatments overseen and coordinated by the consulted nephrology service ADMITTING DIAGNOSES: Dialysis disequilibrium syndrome Hypotension secondary to active hemodialysis/dialysis disequilibrium syndrome New onset atrial fibrillation Respiratory alkalosis End-stage renal disease on hemodialysis via permacath (Thursday, Thursday, Thursday; began dialysis in January 2020) Myeloproliferative disorder, follows with medical oncology: As of visit on 02/07/20 with metabolic, patient has evolved into chronic myelomonocytic leukemia with a very high likelihood that will develop further into acute myeloid leukemia Hypertension Bronchospastic/reactive airway disease History of DVT on Eliquis; patient reports DVT was 45 years ago 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 Vitamin D deficiency Gout DISCHARGE DIAGNOSES: End-stage renal disease on hemodialysis via permacath (Thursday, Thursday, Thursday; began dialysis in January 2020) New onset atrial fibrillation Myeloproliferative disorder, follows with medical oncology: As of visit on 02/07/20 with metabolic, patient has evolved into chronic myelomonocytic leukemia with a very high likelihood that will develop further into acute myeloid leukemia Hypertension Bronchospastic/reactive airway disease History of DVT on Eliquis; patient reports DVT was 45 years ago 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 HISTORY OF PRESENT ILLNESS & HOSPITAL COURSE: Jessica is an 84-year-old female with PMHx of ESRD on hemodialysis via PermaCath, chronic myeloproliferative disorder evolving into chronic myelomonocytic leukemia, hypertension, bronchospastic/reactive airway disease, history of DVT on Eliquis, gout and vitamin D deficiency, who presented to the ED on the evening of 02/20/20 by EMS from dialysis after experiencing hypotension during dialysis earlier today. She has felt weak ever since initiating hemodialysis last month and had accompanying chills this afternoon during dialysis. She follows with Dr. Paniagua and has been receiving hemodialysis every Thursday, Thursday, Thursday. Per report, patient required an extra dialysis session this past Thursday to try and help get more fluid off. Upon exam the emergency department, she denied any symptoms other than the aforementioned chills and generalized weakness. Her labs showed WBC 59.9, hemoglobin 8.2, MCV 96.2, serum calcium 7.1, BUN 33, creatinine 2.96, GFR 16%. A point of care arterial blood gas showed pH of 7.554, PCO2 29.7, HCO3 of 26.3, with anion gap of 11. Lactic acid was 3.8. Two blood cultures were drawn and are pending. EKG showed what believed to be new onset atrial fibrillation with a controlled ventricular rate. Cardiac enzymes were not elevated. She was typed and screened due to the low hemoglobin. Upon the recommendation of nephrology, she was admitted overnight under the care of the hospitalist service. She was initially admitted to PCU, but became hypotensive again with a map under 65. At this time, it was felt she would be unable to consistently maintain adequate pressures without pharmacological pressor support. She was subsequently transferred to the ICU and agreed for central line placement. Unfortunately, general surgery, was unable to place a line after not getting enough blood return from the left internal jugular vein, as well as struggling with these left subclavian vein. Due to the patient's anasarca, femoral line placement was deferred. Peripheral IV administration of levofed was to be initiated to maintain her pressures as well as possible. A peripherally inserted central catheter (PICC) was placed and the patient remained on levo fed. In addition to nephrology, hematology oncology was consulted and saw the patient. Ultimately, she was able to maintain adequate map with the levo fed and then was subsequently weaned off with just her home oral midodrine. After she was able to exhibit continued adequate pressures with just the oral midodrine, she was discharged to the progressive care unit and ultimately medical surgical floor. She then underwent multiple successive days (upwards of 5-7) of hemodialysis. She generally receives hemodialysis Thursday, Thursday and Thursday and only began at last month (January 2020), but due to her significant fluid retention, the nephrology service felt it was best to continue with consecutive day hemodialysis treatments. She finally got to the point of being neutral from a fluid standpoint in the eyes of the nephrology service by 03/01. Unfortunately, she was unable to return home due to deconditioning and the inability of her roommate and neighbor to care for her at the level. She needs to be upon discharge. It was then felt that a discharge to the acute rehabilitation unit would be necessary. The patient was unable to be discharged and subsequently transferred to ARU on because she refused to go. She wanted to sign out AGAINST MEDICAL ADVICE because she was "sick and tired" of being in the hospital. Because she refused to go to ARU on 03/01, and with the holiday on 03/05, she remained on the medical surgical floor until relenting and agreeing to go to ARU on 03/06. DISCHARGE MEDICATIONS: Please see below. ALLERGIES: Please see below. PHYSICAL EXAMINATION ON DISCHARGE: VITAL SIGNS: Please see below. LABORATORY DATA: Please see below. IMAGING: Portable chest xray, 02/20/2020: Tunneled catheter in place. No infiltrates seen. CT chest without contrast, 02/22/20: There are small bilateral pleural effusions, left a little larger than right with some associated compressive atelectasis in the lower lobes bilaterally. No pericardial effusion is seen. No definite pulmonary parenchymal infiltrate is seen. There are mild emphysematous changes. There is a tunnel catheter via the right internal jugular vein terminating in the superior vena cava. Right-sided PICC line is also noted terminating in the superior vena cava as well. Vascular calcification is noted. No pericardial effusion is seen. The main pulmonary arteries is dilated and peripherally pruned consistent with pulmonary arterial hypertension. There is evidence of upper abdominal ascites. Bone window settings show no bony destructive lesion. IMPRESSION: No definite infiltrate. There is some compressive atelectasis in the lower lobes bilaterally associated with small bilateral pleural effusions. The left pleural effusion is a little larger than the right. Dilated central pulmonary arteries consistent with pulmonary arterial hypertension. Central venous lines as above CT abdomen/pelvis w/o IV or oral contrast, 02/22/20: Diffuse abdominal ascites. Splenomegaly. Question portal hypertension. Dilated and inhomogeneous region at the level of the aneudy splenic venous confluence; question venous thrombosis versus adenopathy here. Consider contrast enhanced CT study versus Doppler ultrasound. No evidence of free air, obstruction, or abscess. Calcified uterine fibroids. Vascular calcification. Post cholecystectomy. Chest x-ray portable, 02/23/20: Diffuse abdominal ascites. Splenomegaly. Question portal hypertension. Dilated and inhomogeneous region at the level of the aneudy splenic venous confluence; question venous thrombosis versus adenopathy here. Consider contrast enhanced CT study versus Doppler ultrasound. No evidence of free air, obstruction, or abscess. Calcified uterine fibroids. Vascular calcification. Post cholecystectomy. PROGNOSIS: Poor to guarded, primarily due to ESRD on HD as well as likely progressing and evolving leukemia diagnosis ACTIVITY: As tolerated and as directed when ultimately discharged from the acute rehabilitation unit (ARU) DIET: No added salt diet DISPOSITION: 62 D/T Rehab Facility. DISCHARGE INSTRUCTIONS & ITEMS TO FOLLOWUP ON ON OUTPATIENT: -Being discharged to the acute rehabilitation unit and should follow the ultimate discharge instructions from the physiatry overseeing the patient -Follow-up with primary care provider within 7-10 days of ARU discharge -Follow-up with hypnotherapist (Dr. Brittanie Paniagua) in 2-3 weeks after ARU discharge -Follow-up with hematology oncology (Dr. Arboleda in his left, so potentially Dr. Matos if he is still here) in 2-3 weeks after ARU discharge -Should symptoms that necessitated this presentation recur, and/or acutely worsen - - or should patient experience an acute medical emergency of any kind - - she is instructed to return to the emergency department immediately. DISCHARGE CONDITION: Stable for discharge to ARU TIME SPENT ON DISCHARGE: Greater than 35 minutes. Attending attestation: I evaluated and examined the patient in person; I discussed the care with Resident in detail and agree with the plan above. Discharge Medications Scheduled Allopurinol (Allopurinol) 100 Mg Tab, 200 MG PO DAILY, (Reported) Allopurinol (Allopurinol) 100 Mg Tablet, 200 MG PO DAILY Apixaban (Eliquis) 2.5 Mg Tab, 2.5 MG PO BID, (Reported) Apixaban (Eliquis) 2.5 Mg Tablet, 2.5 MG PO BID Calcitriol (Calcitriol) 0.25 Mcg Cap, 0.25 MCG PO DAILY, (Reported) Calcitriol (Calcitriol) 0.25 Mcg Capsule, 0.25 MCG PO DAILY Cholecalciferol (Vitamin D3) (Vitamin D3) 50 Mcg Tablet, 2,000 UNITS PO DAILY, (Reported) Denosumab Injection (Prolia) 60 Mg/1 Ml Syringe, 60 MG SC ASDIRECTED, (Reported) INJECT 60 MG SUBQ EVERY 6 MONTHS DIRECTED Levothyroxine Sodium (Levothyroxine Sodium) 75 Mcg Tablet, 75 MCG PO DAILY@06 Levothyroxine Sodium (Levothyroxine Sodium) 75 Mcg Tablet, 75 MCG PO DAILY@06 Midodrine HCl (Midodrine HCl) 5 Mg Tablet, 10 MG PO TID@08,12,16 Midodrine HCl (Midodrine HCl) 5 Mg Tablet, 10 MG PO 08,12,16 hold for sBP >140 Pantoprazole Sodium (Pantoprazole Sodium) 40 Mg Tablet.dr, 40 MG PO DAILY Umeclidinium Brm/Vilanterol Tr (Anoro Ellipta 62.5-25 Mcg INH) 1 Aer Aer, 1 PUFF PO DAILY, (Reported) Allergies Coded Allergies: alendronate sodium (Verified Allergy, Unknown, 02/20/20) enalapril (Verified Allergy, Unknown, 02/20/20) TOAN GOODRICH D.O. Mar 14, 2020 19:45 JUANY MUÑOZ MD Mar 16, 2020 13:21
[2020-07-12] MEDS ORDERED: DENOSUMAB 60MG/1ML SYRINGE (PROLIA) (J0897 PER 1MG) SC ONE (22:45)
== END 2020-03-06 13:16 | DRG 312 ==
LOC: EDBD 18:57 → M ED 18:57 → M ED INP 21:38 → ENRESERV 21:55 → M PCU 23:09 → M ICU 02-21 01:45 → M MSPAV 02-25 13:32
PROVIDERS: ADMIT Internal Medicine; ATTEND Internal Medicine
PROC: 02HV33Z Insertion of Infusion Device into Superior Vena Cava, Percutaneous Approach (ICD-10-PCS; 2020-02-21)
PROC: 30233N1 Transfusion of Nonautologous Red Blood Cells into Peripheral Vein, Percutaneous Approach (ICD-10-PCS; 2020-02-21)
PROC: 5A1D70Z Performance of Urinary Filtration, Intermittent, Less than 6 Hours Per Day (ICD-10-PCS; principal; 2020-02-21 12:00)
PROC: 30233J1 Transfusion of Nonautologous Serum Albumin into Peripheral Vein, Percutaneous Approach (ICD-10-PCS; 2020-02-24)
PROC: 0W9G3ZZ Drainage of Peritoneal Cavity, Percutaneous Approach (ICD-10-PCS; 2020-02-27)
DX: I95.3 Hypotension of hemodialysis (principal); N18.6 End stage renal disease; I50.23 Acute on chronic systolic (congestive) heart failure; C93.10 Chronic myelomonocytic leukemia not having achieved remission; I13.2 Hypertensive heart and chronic kidney disease with heart failure and with stage 5 chronic kidney disease, or end stage renal disease; E87.2 Acidosis; N25.81 Secondary hyperparathyroidism of renal origin; E87.3 Alkalosis; R18.8 Other ascites; Z66 Do not resuscitate; I95.89 Other hypotension; I48.0 Paroxysmal atrial fibrillation; J45.909 Unspecified asthma, uncomplicated; M10.9 Gout, unspecified; E55.9 Vitamin D deficiency, unspecified; D63.0 Anemia in neoplastic disease; D63.1 Anemia in chronic kidney disease; R50.9 Fever, unspecified; Z88.8 Allergy status to other drugs, medicaments and biological substances; R09.02 Hypoxemia; Z86.718 Personal history of other venous thrombosis and embolism; Z85.828 Personal history of other malignant neoplasm of skin; Z90.49 Acquired absence of other specified parts of digestive tract; Z87.891 Personal history of nicotine dependence; Z79.01 Long term (current) use of anticoagulants; Z79.899 Other long term (current) drug therapy; Z99.2 Dependence on renal dialysis; Z11.59 Encounter for screening for other viral diseases

== ENCOUNTER 2020-03-06 09:54 | Inpatient (IN) | payer MEDICARE, OTHER ==
[~2020-03-06] VITALS: Ht 167.6 cm; Wt 61.4 kg
[~2020-03-06 09:54] MED LIST changes: +ENTR1TAB PO; +FURO20TA2 PO; +FURO40TA2 PO; +GABA-1171 PO; +MIDO5TA PO; +PROL60SO SC; +SPIR-10 PO; +VITA200010 PO; +VOLT1GEL15 TOP
[2020-03-06] MEDS ORDERED: LEVO75TA4 PO (10:55)
[2020-03-06] MEDS ORDERED: MIDO5TA PO (10:55)
[2020-03-06] MEDS ORDERED: ACETAMINOPHEN TAB 650MG DOSE (2X325MG) PO PRN (11:30)
[2020-03-06] MEDS ORDERED: IPRATROPIUM 0.5MG/ALBUTEROL 2.5MG INH SOL UD 3ML (DUONEB)(J7620) NEB PRN (11:30)
--- NOTE | 2020-03-06 11:53 | HPEPDOC ---
Business Leader Note DATE OF ADMISSION: 03/06/20 DATE OF SERVICE: 03/06/20 TIME OF ADMISSION: Please refer to physician's admission order. SOURCE OF ADMISSION INFORMATION: [facility] record and patient CHIEF COMPLAINT: new onset Afib with dialysis dysequilibrium syndrome HISTORY OF PRESENT ILLNESS: 84F pmh ESRD on HD, chronic hypotension, CML, HTN, reactive airway disease/COPD, hx of DVT on Eliquis, vitamin D deficiency who presented to [facility] ED on 02-20-20 with weakness and found to be anemic and in new onset Afib. She became hypotensive, a PICC line was placed, and she required artificial BP support, and required supplemental 02 as well. She received dialysis for her anasarca and later had paracentesis. Adrenal insufficiency work-up was negative, she received IV corticosteroids, and later was able to be maintained on just midodrine for BP support. She finished a course of empiric IV antibiotics, as evaluated by therapy, found to have impairments in mobility and ALDs and deemed medically appropriate for discharge to ARU on 03-06-20. REVIEW OF SYSTEMS: The following is a completed review of systems and has been reviewed. Review of systems otherwise unremarkable. PAIN: Patient self reports no pain EYES: No recent vision changes EARS, NOSE, & THROAT: No throat pain, or dysphagia, or rhinorrhea CARDIOVASCULAR: Denies chest pain or palpitations PULMONARY: Denies shortness of breath GASTROINTESTINAL: Denies constipation/diarrhea GENITOURINARY: denies dysuria MUSCULOSKELETAL: generalized weakness NEUROLOGICAL:+ bilat LE paresthesias HEMATOLOGICAL: denies easy bruising SKIN: denies rash PSYCHIATRIC: Unremarkable All other review of systems found to be negative. PAST MEDICAL HISTORY: as per HPI PAST SURGICAL HISTORY: Cholecystectomy, permacath 01/2020 ALLERGIES: Please see below. MEDICATIONS: Please see below. FAMILY HISTORY: Cardiac and lung cancer SOCIAL HISTORY: Former smoker, no illicit drugs/etoh DIET: 2g low sodium PHYSICAL EXAMINATION: VITAL SIGNS: Please see below. GENERAL: Pleasant and cooperative. No acute distress. HEENT: PERRL. Extraocular movements intact. Clear conjunctiva CARDIOVASCULAR: Regular rate and rhythm. No murmurs, rubs, or gallops LUNGS: Clear to auscultation bilaterally. No wheezes. No rhonchi ABDOMEN: Soft, nontender, nondistended. Positive bowel sounds. Normal active bowel sounds NEUROLOGICAL: Alert and oriented times three. Cranial nerves II through XII grossly intact. Sensation diminished to light touch in bilat LE in stocking patter EXTREMITIES:5\5 strength bilateral upper extremities. 5\5 strength right lower extremity. 5/5 strength in left lower extremity. +bilat edema SKIN: right anterior calf laceration, bilat heel blanchable erythema, sacrum without erythema, right chest wall permacath LABORATORY DATA: Please see below. IMAGING:Imaging documentation personally reviewed by record FUNCTIONAL STATUS: Premorbid: Independent with all activities of daily life as well as mobility On Admission: Requires Moderate-standby assistance for functional transfers, ambulation, max assist for toileting GOALS: Mod-I with RW community distances, functional transfers, stairs, dressing, toileting, bathing ASSESSMENT:84-year-old F with past medical history of ESRD on HD, CML who prese nts status post new onset Afib and dialysis dysequilibrium syndrome PLAN: 1. Rehab- PT/OT advance gait and ADLs, energy conservation, stretch/strengthen/maintain ROM all 4 limbs 2. Neuro: no active issues 3. CArdiac: new onset Afib, on renally doses Eliquis -chronic hypotension s/p course of levophed and IV corticosteroids, adrenal insufficiency ruled out on prior unit, c/u midodrine with holding paramters, medicine consulted to assist in overall management 5. resp: hx of RAD/COPD c/u DUonebs, will start Fluticasone as patient on Ellipta at home -monitor for infection 6. Endo: hyperthyroidism, c/u recently increased dose of Synthroid 7. Renal: ESRD on HD began 01/2020, renal consulted to assist with fluid management and anemia of chronic disease 8. Heme: hx of chronic myeloproliferative disorder, advancing to CML with chronic leukocytosis- f/u with oncology 9. DVT: hx of DVTs on Eliquis, c/u TEDs 10. GI ppx: protonix 11. Pain: tylenol prn -Allopurinol for gout 12. Dispo: TBD POST ADMISSION PHYSICIAN EVALUATION: Medical and functional status: Description of medical status, medical assessment: As above. Rehabilitation diagnosis and current and prior cold morbid medical conditions as above. Risk of complications and plans to mitigate them as above. Description of functional status current status is as above. Prior status as above. Status compared to preadmission: There are no clinically significant differences between the patient's current status and the information described on the preadmission screening document. Treatment plan anticipated: Treatment plan is as described above. Required disciplines including physical therapy, occupational therapy, others as noted above. Intensity of services: 3 hours a day, days a week. Special considerations: There are no specific special or safety considerations that would likely preclude immediate implementation of an intensive rehabilitation program or subsequently influence the plan of care. ATTESTATION: Considering all the information above, it is my best judgment that this patient requires intensive rehabilitation therapy as described above and an inpatient hospital environment due to the complexity of nursing, medical, and rehabilitation needs required by the patient. Furthermore, this patient can reasonably be expected to participate in an benefit from an inpatient rehabilitation stay with an interdisciplinary team approach to the delivery of rehabilitation care under the direction and supervision of rehabilitation physician. PROGNOSIS: good ESTIMATED LENGTH OF STAY:7-10 days. PROJECTED DISCHARGE DESTINATION: Home with family support and any durable medical equipment required to increase functional safety and mobility. TIME SPENT COUNSELING AND COORDINATING INITIAL CARE: Greater than 70 minutes. Vital Signs Vital Signs Date Time Temp Pulse Resp B/P (MAP) Pulse Ox O2 Delivery O2 Flow Rate FiO2 03/06/20 17:00 98.5 58 18 121/66 (84) 95 Room Air Home Medications Scheduled Allopurinol (Allopurinol) 100 Mg Tab, 200 MG PO DAILY, (Reported) Apixaban (Eliquis) 2.5 Mg Tab, 2.5 MG PO BID, (Reported) Calcitriol (Calcitriol) 0.25 Mcg Cap, 0.25 MCG PO DAILY, (Reported) Cholecalciferol (Vitamin D3) (Vitamin D3) 50 Mcg Tablet, 2,000 UNITS PO DAILY, (Reported) Denosumab Injection (Prolia) 60 Mg/1 Ml Syringe, 60 MG SC ASDIRECTED, (Reported) INJECT 60 MG SUBQ EVERY 6 MONTHS DIRECTED Levothyroxine Sodium (Levothyroxine Sodium) 75 Mcg Tablet, 75 MCG PO DAILY@06 Midodrine HCl (Midodrine HCl) 5 Mg Tablet, 10 MG PO TID@08,12,16 Umeclidinium Brm/Vilanterol Tr (Anoro Ellipta 62.5-25 Mcg INH) 1 Aer Aer, 1 PUFF PO DAILY, (Reported) Scheduled PRN Diclofenac Sodium (Voltaren) 100 Gm Gel..gram., 1 APLCT TOP TIDP PRN for PAIN, (Reported) APPLIES TO KNEES FOR KNEE PAIN Gabapentin (Gabapentin) 100 Mg Capsule, 200 MG PO BIDP PRN for PAIN, (Reported) Allergies Coded Allergies: alendronate sodium (Verified Allergy, Unknown, 02/20/20) enalapril (Verified Allergy, Unknown, 02/20/20) A-FIB/CHADSVASC A-FIB History Current/History of A-Fib/PAF?: Yes Current PO Anticoag Therapy: Yes VIRGINIA CARY MD March 06, 2020 11:53
[2020-03-06 17:00] VITALS: BP 121/66
[2020-03-06] MEDS: REMEDY PHYTOPLEX Z-GUARD PASTE 113GM TUBE (FROM STOREROOM PRODUCT) TOP SCH ×2 (18:19→21:54)
[2020-03-06] MEDS: MIDODRINE 5 MG TAB PO SCH (18:19)
[2020-03-06 20:00] VITALS: BP 96/62
[2020-03-06] MEDS: FLUTICASONE HFA 110 MCG 12 GM INHALER (FLOVENT) INH SCH (20:00)
[2020-03-06] MEDS: IPRATROPIUM 0.5MG/ALBUTEROL 2.5MG INH SOL UD 3ML (DUONEB)(J7620) NEB SCH (20:00)
[2020-03-06] MEDS: DOCUSATE SODIUM 100 MG CAP PO SCH (21:00)
[2020-03-06] MEDS: SENNA 8.6 MG TAB (SENOKOT) PO SCH (21:00)
[2020-03-06] MEDS: APIXABAN 2.5 MG TAB (ELIQUIS) PO SCH (21:53)
[2020-03-07] MEDS: LEVOTHYROXINE 75MCG TABLET (0.075MG) PO SCH (05:16)
[2020-03-07 06:00] VITALS: BP 106/71
[2020-03-07 06:24] LABS: HEMOGLOBIN 9.3 g/dl (12.0-15.5); MEAN CORPUSCULAR VOLUME 93.5 fl (80.0-96.0); PLATELET COUNT, AUTOMATED 144 10^3/uL (150-450); RED BLOOD COUNT 3.21 10^6/uL (4.00-5.40)
[2020-03-07 06:29] LABS: WHITE BLOOD COUNT 44.9 10^3/uL (4.0-10.0)
[2020-03-07 06:41] LABS: ALBUMIN 2.6 GM/DL (3.2-5.2); BILIRUBIN,TOTAL 0.8 MG/DL (0.2-1.0); CALCIUM LEVEL 8.8 MG/DL (8.8-10.2); CREATININE FOR GFR 2.75 MG/DL (0.55-1.30); GLOMERULAR FILTRATION RATE 17.4 (>32)
[2020-03-07] MEDS: FLUTICASONE HFA 110 MCG 12 GM INHALER (FLOVENT) INH SCH ×2 (07:32→20:39)
[2020-03-07] MEDS: IPRATROPIUM 0.5MG/ALBUTEROL 2.5MG INH SOL UD 3ML (DUONEB)(J7620) NEB SCH ×3 (07:32→20:39)
[2020-03-07 08:28] LABS: ANISOCYTOSIS 2+; ATYPICAL LYMPH 4 % (0-5); BASOPHILS 2 % (0-1); BLAST CELLS 1 % (0-0); LYMPHOCYTES 14 % (16-44); METAMYELOCYTES 8 % (0-0); MONOCYTES 13 % (0-5); MYELOCYTES 6 % (0-0); NEUTROPHILS 48 % (28-66); PLATELET ESTIMATE NORMAL (NORMAL); POLYCHROMASIA 1+; PROMYELOCYTES 1 % (0-0)
[2020-03-07 08:29] LABS: GIANT PLATELETS 1+
[2020-03-07 08:31] LABS: OVALOCYTES 1+
[2020-03-07] MEDS: DOCUSATE SODIUM 100 MG CAP PO SCH ×3 (09:00→20:03)
[2020-03-07] MEDS: MIDODRINE 5 MG TAB PO SCH ×3 (09:00→17:25)
[2020-03-07] MEDS: PANTOPRAZOLE 40MG TAB (PROTONIX) PO SCH (09:01)
[2020-03-07] MEDS: CALCITRIOL 0.25 MCG CAP (S0169) PO SCH (09:01)
[2020-03-07] MEDS: allopurinoL 100 MG TAB PO SCH (09:01)
[2020-03-07] MEDS: APIXABAN 2.5 MG TAB (ELIQUIS) PO SCH ×2 (09:01→20:03)
[2020-03-07] MEDS: REMEDY PHYTOPLEX Z-GUARD PASTE 113GM TUBE (FROM STOREROOM PRODUCT) TOP SCH ×3 (09:02→20:04)
--- NOTE | 2020-03-07 09:21 | IPN ---
DATE: 03/06/2020 Ms. Dickerson is seen and examined this morning during bedside rounds. She states that she was supposed to go to acute rehab unit (ARU) yesterday, but will be going later this evening. She really has no complaints today. She was just unhappy that her dialysis was delayed yesterday because something was broken. She did have 2.5 liters removed yesterday, which she tolerated very well. Her edema has continued to improve with dialysis. She really has no complaints today, would just like to go to rehab as planned. No overnight events were reported by nursing. PHYSICAL EXAM: Vital Signs: Temperature 98.2, pulse 80, respirations 17, blood pressure 116/63 (80), pulse oximetry 94% on room air. Intake total 700, output total 2900, net balance of negative 2200 mL, hemodialysis 2500 mL with three bowel movements yesterday. There was no weight recorded. HEENT: Atraumatic, normocephalic. Cardiovascular: Irregularly irregular. Rate controlled. No audible murmurs, rubs, or gallops noted. Permacath placed in the right chest wall. Respiratory: Lungs have improved, very minimal inspiratory crackles at the right base. No audible wheezing or rhonchi is appreciated. Abdomen : Soft, nontender. Minimal ascites appreciated on the flank. No guarding or rebounding noted. Extremities: Continues to have lower extremity edema, more prominent at the hips, 3+. Neurologic: No focal deficits noted. LABORATORIES: Hematology: WBC 4.5, hemoglobin 9.0, hematocrit 28.7, platelets 178. Chemistries: Sodium 140, potassium 3.8, chloride 105, carbon dioxide 27, BUN 24, creatinine 2.13 with a glucose of 76. ASSESSMENT AND PLAN: 1. End-stage renal disease. Her normal schedule is Thursday, Thursday, Thursday. She did get dialyzed yesterday and removed 2.5 liters. We will dialyze again today to optimize her fluid status and will aim for 2.5 liters once again today depending on her blood pressure tolerance. 2. Generalized anasarca. Continues to improve with dialysis. Will be doing an extra session today and will continue as such while she is in rehab. 3. Chronic hypotension. Continue with her current dose of midodrine at 10 mg three times a day. 4. Anemia. Secondary to end-stage renal disease and hematological malignancy of CMML. Continue with Aranesp. Hemoglobin is 9.0 and is optimal. We will continue to monitor and recommend to transfuse if it drops under 8. 5. Chronic myelomonocytic leukemia (CMML). Currently not on chemotherapy. Oncology is on board. She is not currently in blast crisis. 6. Generalized weakness and deconditioning. She will be going to rehab later this afternoon. Will continue with nephrology services while she is in ARU with dialysis.
[2020-03-07] MEDS ORDERED: DARBEPOETIN 200MCG/0.4ML *DIALYSIS* SYRINGE (J0882 PER 1MCG) IV SCH (10:30)
[2020-03-07 12:10] VITALS: BP 122/64
--- NOTE | 2020-03-07 16:44 | IPN ---
DATE: 03/07/2020 Ms. Jessica Dickerson was seen and examined this morning during bedside rounds in the acute rehabilitation unit (ARU). She states that she is feeling better. She does voice that she would like to go home but understands that she needs physical therapy (PT) and occupational therapy (OT) to get her strength back. She continues to voice her dislike for dialysis but also understands that this is helping her with her fluid overload status. She had an extra ultrafiltration session yesterday where they removed 2.5 liters which she tolerated very well. She understands that she was going to dialysis later this afternoon and has no other concerns. She does endorse that she is getting a ramp placed at her house and hopefully this will expedite her process of getting discharged sooner than later. There were no overnight events reported by nursing. PHYSICAL EXAMINATION: VITAL SIGNS: Temperature 98.0, pulse 87, respirations 18, blood pressure 106/71 (83), pulse oximetry 96% on room air. GENERAL: This is a very pleasant 84-year-old female who does not appear to be in any acute distress, sitting up on her bed with her legs over the side, appropriately answering questions. HEENT: Normocephalic, atraumatic. Pupils are equal, round, and reactive. No jugular venous distention (JVD) could be assessed. The patient does have a lot of loose skin. No lymphadenopathy. Trachea is midline. CARDIOVASCULAR: Irregularly irregular, rate controlled. No audible murmurs, rubs, or gallops. PermaCath on the right chest wall. RESPIRATORY: Lungs are clear to auscultation bilaterally. Very minimal crackles appreciated at the bases at the right which is improved since yesterday. ABDOMEN: Soft, nontender. Very minimal ascites appreciated at the flanks on the left but no guarding or rebounding noted. EXTREMITIES: She continues to have lower extremity edema which is prominent on the hips. I will rate it as 2+ versus the 3 from yesterday. NEUROLOGIC: No obvious focal deficits noted besides the resting tremor. LABORATORY DATA: WBC 44.9, hemoglobin 9.3, hematocrit 30.0, platelets 144. Sodium 138, potassium 4.0, chloride 104, carbon dioxide 26, BUN 35, creatinine 2.75, glucose 79. ASSESSMENT AND PLAN: 1. End-stage renal disease. The patient's normal schedule is Thursday, Thursday, Thursday. She will be going down today for hemodialysis and our goal is to once again remove 2.5 liters pending her blood pressure tolerance. She tolerated removing 2.5 liters yesterday during ultrafiltration. I suspect that she will continue to do well. 2. Generalized anasarca. Fluid overload status continues to improve with dialysis. She is tolerating the extra ultrafiltration sessions between regular scheduled hemodialysis and will continue as such. 3. Chronic hypotension. We will continue with her midodrine 10 mg three times a day. 4. 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 Her hemoglobin today was 9.3 which is suboptimal. For the setting of patients with renal disease on dialysis, we would like to have a hemoglobin above 10. We will continue with the Aranesp as well as the Venofer. We will continue to monitor. We do recommend to transfuse packed red blood cells (RBCs) if hemoglobin goes under 8. 5. Chronic myelomonocytic leukemia. Currently not on chemotherapy. Oncology was on board while admitted. She is currently not in blast crisis. 6. Generalized weakness and deconditioning. Symptoms are continuing to improve. She is currently in acute rehabilitation unit (ARU) for physical therapy (PT) and occupational therapy (OT). Continue to follow their recommendations per ARU physician.
--- NOTE | 2020-03-07 17:27 | IPNPDOC ---
Date Seen The patient was seen on 03/07/20. Progress Note SUBJECTIVE: 84-year-old female with past medical history of end-stage renal disease, CMML, chronic hypotension, COPD, and DVT was admitted [facility] for new onset A. fib and hypotension secondary to congestive heart failure. He was initially treated with pressors, fluid removal was done via extra hemodialysis sessions, she was transferred to acute rehabilitation unit for further therapy. Patient seen while undergoing hemodialysis, comfortable, without any complaints. She denies any chest pain, nausea, vomiting, diarrhea or constipation. She does have mild shortness of breath, baseline. 10 point review of system is negative except for above PHYSICAL EXAMINATION: VITAL SIGNS: Please see below. GENERAL: Frail HEENT: Normocephalic, atraumatic, moist mucous membranes NECK: Supple CARDIOVASCULAR EXAMINATION: Irregularly irregular RESPIRATORY EXAMINATION: Scattered rhonchi ABDOMINAL EXAMINATION: Soft, nontender, nondistended, positive bowel sounds EXTREMITIES: Lotion or edema appreciated SKIN: No rash NEUROLOGICAL EXAMINATION: no focal deficits PSYCHIATRIC EXAMINATION: Calm and cooperative LABORATORY DATA, IMAGING STUDIES, MICROBIOLOGY: Please see below. ASSESSMENT AND PLAN: A 4-year-old female with multiple medical comorbidities, was admitted to [facility] for new onset A. fib with RVR and hypotension, now admitted to acute rehabilitation unit for further therapy. PROBLEMS: 1. End-stage renal disease: Hemodialysis as per nephrology, continue home meds. 2. Atrial fibrillation: Continue Eliquis. 3. CMML: Not on therapy, outpatient follow-up. 4. Hypothyroidism: Continue levothyroxine 5. Anemia: Secondary to end-stage renal disease, continue Aranesp 6. Chronic hypertension: Continue midodrine DVT prophylaxis: on Eliquis GI prophylaxis: on PPI VS, I&O, 24H, Fishbone Vital Signs/I&O Vital Signs Date Time Temp Pulse Resp B/P (MAP) Pulse Ox O2 Delivery O2 Flow Rate FiO2 03/07/20 12:10 122/64 (83) 03/07/20 06:00 98.0 87 18 96 Room Air I&O- Last 24 Hours up to 6 AM 03/07/20 06:00 Intake Total 240 ml Output Total 0 ml Balance 240 ml Laboratory Data 24H LABS Laboratory Tests 2 03/07/20 06:03: Immature Granulocyte % (Auto) , Neutrophils (%) (Auto) , Nucleated Red Blood Cells % (auto) 6.9H, Neutrophils 48, Band Neutrophils 3, Lymphocytes (Manual) 14L, Monocytes (Manual) 13H, Basophils (Manual) 2H, Metamyelocytes 8H, Myelocytes 6H, Promyelocytes 1H, Blastocytes 1H, Atypical Lymphocytes 4, Polychromasia 1+, Anisocytosis 2+, Ovalocytes 1+, Giant Platelets 1+, Platelet Estimate NORMAL, Anion Gap 8, Glomerular Filtration Rate 17.4L, Calcium Level 8.8, Total Bilirubin 0.8, Aspartate Amino Transf (AST/SGOT) 20, Alanine Aminotransferase (ALT/SGPT) 12, Alkaline Phosphatase 127H, Total Protein 5.0L, Albumin 2.6L, Albumin/Globulin Ratio 1.1L CBC/BMP Laboratory Tests 03/07/20 06:03 JUANY MUÑOZ MD March 07, 2020 17:27
[2020-03-07 18:00] VITALS: BP 93/54
[2020-03-07 20:02] VITALS: BP 107/52
[2020-03-07] MEDS: SENNA 8.6 MG TAB (SENOKOT) PO SCH (20:03)
[2020-03-08] MEDS: LEVOTHYROXINE 75MCG TABLET (0.075MG) PO SCH (05:55)
[2020-03-08 06:00] VITALS: BP 98/60
[2020-03-08] MEDS: FLUTICASONE HFA 110 MCG 12 GM INHALER (FLOVENT) INH SCH ×2 (07:20→20:02)
[2020-03-08] MEDS: IPRATROPIUM 0.5MG/ALBUTEROL 2.5MG INH SOL UD 3ML (DUONEB)(J7620) NEB SCH ×3 (07:20→20:00)
[2020-03-08] MEDS: MIDODRINE 5 MG TAB PO SCH ×3 (08:56→17:48)
[2020-03-08] MEDS: APIXABAN 2.5 MG TAB (ELIQUIS) PO SCH ×2 (08:57→21:19)
[2020-03-08] MEDS: PANTOPRAZOLE 40MG TAB (PROTONIX) PO SCH (08:57)
[2020-03-08] MEDS: REMEDY PHYTOPLEX Z-GUARD PASTE 113GM TUBE (FROM STOREROOM PRODUCT) TOP SCH ×3 (08:57→21:00)
[2020-03-08] MEDS: CALCITRIOL 0.25 MCG CAP (S0169) PO SCH (08:57)
[2020-03-08] MEDS: allopurinoL 100 MG TAB PO SCH (08:57)
[2020-03-08] MEDS: DOCUSATE SODIUM 100 MG CAP PO SCH ×2 (08:58→21:00)
[2020-03-08 14:00] VITALS: BP 98/55
--- NOTE | 2020-03-08 15:35 | IPNPDOC ---
PM&R Progress Note DATE OF SERVICE: March 08, 2020 [employer] Progress Note Subjective: Patient reporting she feels well today, is tired from therapy, but otherwise has no complaints. REVIEW OF SYSTEMS: The following is a completed review of systems and has been reviewed. Review of systems otherwise unremarkable. PAIN: Patient self reports no pain EYES: No recent vision changes EARS, NOSE, & THROAT: No throat pain, or dysphagia, or rhinorrhea CARDIOVASCULAR: Denies chest pain or palpitations PULMONARY: Denies shortness of breath GASTROINTESTINAL: Denies constipation/diarrhea GENITOURINARY: denies dysuria MUSCULOSKELETAL: generalized weakness NEUROLOGICAL:+ bilat LE paresthesias HEMATOLOGICAL: denies easy bruising SKIN: denies rash PSYCHIATRIC: Unremarkable All other review of systems found to be negative. PHYSICAL EXAMINATION: VITAL SIGNS: Please see below. GENERAL: Pleasant and cooperative. No acute distress. HEENT: PERRL. Extraocular movements intact. Clear conjunctiva CARDIOVASCULAR: Regular rate and rhythm. No murmurs, rubs, or gallops LUNGS: Clear to auscultation bilaterally. No wheezes. No rhonchi ABDOMEN: Soft, nontender, nondistended. Positive bowel sounds. Normal active bowel sounds NEUROLOGICAL: Alert and oriented times three. Cranial nerves II through XII grossly intact. Sensation diminished to light touch in bilat LE in stocking patter EXTREMITIES:5\5 strength bilateral upper extremities. 5\5 strength right lower extremity. 5/5 strength in left lower extremity. +bilat edema SKIN: right anterior calf laceration, bilat heel blanchable erythema, sacrum without erythema, right chest wall permacath ASSESSMENT:84-year-old F with past medical history of ESRD on HD, CML who presents status post new onset Afib and dialysis dysequilibrium syndrome PLAN: 1. Rehab- PT/OT advance gait and ADLs, energy conservation, str etch/strengthen/maintain ROM all 4 limbs 2. Neuro: peripheral polyneuropathy secondary to ESRD 3. CArdiac: new onset Afib, on renally doses Eliquis -chronic hypotension s/p course of levophed and IV corticosteroids, adrenal insufficiency ruled out on prior unit, c/u midodrine with holding parameters, medicine consulted to assist in overall management 5. resp: hx of RAD/COPD c/u DUonebs, will start Fluticasone as patient on Ellipta at home -monitor for infection 6. Endo: hyperthyroidism, c/u recently increased dose of Synthroid 7. Renal: ESRD on HD began 01/2020, renal consulted to assist with fluid management and anemia of chronic disease 8. Heme: hx of chronic myeloproliferative disorder, advancing to CML with chronic leukocytosis- f/u with oncology 9. DVT: hx of DVTs on Eliquis, c/u TEDs 10. GI ppx: protonix 11. Pain: tylenol prn -Allopurinol for gout 12. Dispo: TBD Allergies Coded Allergies: alendronate sodium (Verified Allergy, Unknown, 02/20/20) enalapril (Verified Allergy, Unknown, 02/20/20) Vital Signs Vital Signs Date Time Temp Pulse Resp B/P (MAP) Pulse Ox O2 Delivery O2 Flow Rate FiO2 03/08/20 14:00 98.0 96 16 98/55 (69) 90 Room Air Current Medications Current Medications Current Medications Medications (Trade) Dose Ordered Sig/Ruthann Route PRN Reason Start Time Stop Time Status Last Admin Dose Admin Acetaminophen (Tylenol Tab) 650 mg Q4HP PRN PO fever/MILD PAIN (PS 1-4) 03/06/20 11:30 Albuterol/ Ipratropium (Duoneb (Ipr 0.5mg/Alb 2.5mg)) 3 ml Q2HP PRN NEB SOB/WHEEZING 03/06/20 11:30 03/06/20 11:47 DC Albuterol/ Ipratropium (Duoneb (Ipr 0.5mg/Alb 2.5mg)) 3 ml RTID NEB 03/06/20 20:00 03/08/20 13:11 Allopurinol (Zyloprim) 200 mg DAILY PO 03/07/20 09:00 03/08/20 08:57 Apixaban (Eliquis) 2.5 mg BID PO 03/06/20 21:00 03/08/20 08:57 Calcitriol (Rocaltrol) 0.25 mcg DAILY PO 03/07/20 09:00 03/08/20 08:57 Darbepoetin Guero (Aranesp (Dialysis Use)) 200 mcg HD IV 03/07/20 10:30 Docusate Sodium (Colace) 100 mg BID PO 03/06/20 21:00 Fluticasone Propionate (Flovent Hfa 110 Mcg) 2 puff RBID INH 03/06/20 20:00 03/08/20 07:20 Home Med (Med Rec Complete!) ASDIRECTED XX 03/06/20 18:15 03/06/20 18:10 DC Levothyroxine Sodium (Synthroid) 75 mcg DAILY@06 PO 03/07/20 06:00 03/08/20 05:55 Midodrine (Proamatine) 10 mg 08,12,16 PO 03/06/20 16:00 03/08/20 12:04 Pantoprazole Sodium (Protonix) 40 mg DAILY PO 03/07/20 09:00 03/08/20 08:57 Senna (Senokot) 1 tab QHS PO 03/06/20 21:00 VIRGINIA CARY MD March 08, 2020 15:35
--- NOTE | 2020-03-08 17:22 | IPN ---
DATE OF SERVICE: 03/08/2020 Ms. Dickerson was seen and examined this morning during bedside rounds in the acute rehabilitation unit (ARU) during a physical therapy (PT) session. She states that she is feeling great and she would like to go home, which is possibly next Thursday. She had her normal dialysis session yesterday, which she tolerated very well. When asked if she would go for ultrafiltration session today she refused, for she states that she would like a break at this current time. No other event reported by nursing. The patient denies nausea, vomiting, diarrhea, shortness of breath, constipation, or any abdominal discomfort. PHYSICAL EXAMINATION: VITAL SIGNS: Temperature 98.4, pulse 74, respirations 18, blood pressure 98/60 (73), pulse oximetry 98% on room air. Intake total, intake 590, output total 2000 mL, output balance of negative 1410 mL. Hemodialysis removed 2 liters. Weight this morning is 63.1 kg. GENERAL: This is a very pleasant 84-year-old female who does not appear to be in any acute distress, working the exercise bike, appropriately answering questions. HEENT: Atraumatic, normocephalic. Facial covering in place. No jugular venous distention (JVD) noted. CARDIOVASCULAR: Irregularly irregular, rate controlled. No audible murmurs, rubs, or gallops. PermaCath in place in the right chest wall. RESPIRATORY: Lungs clear to auscultate bilaterally. Very minimal crackles appreciated bibasilar. ABDOMEN: Soft, nontender. Very minimal ascites appreciated at the flanks still. EXTREMITIES: Continues to have lower extremity edema, which is more prominent in the hips versus the lower extremities very minimal. I would say 2+ in the hips versus minimal in the lower extremities. NEUROLOGIC: No focal deficits noted. LABORATORY DATA: No new labs were drawn today. ASSESSMENT AND PLAN: 1. End-stage renal disease. The patient's normal schedule is Thursday, Thursday, Thursday. She did go for a hemodialysis session where they removed 2 liters yesterday pending her blood pressure tolerance. The patient did refuse going ultrafiltration. She is still retaining fluid in her hip and will re-assess tomorrow for her regular dialysis. 2. Generalized anasarca. Fluid overload status continues to improve but the patient did refuse her extra ultrafiltration session today, so will monitor. 3. Chronic hypotension. Continue with her midodrine 10 mg three times a day. 4. 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 No labs were drawn today. Will continue with her Aranesp and Venofer which she will get at dialysis. Recommendation is to transfuse if hemoglobin goes under 8. 5. Chronic myelomonocytic leukemia. Currently not in blast crisis. 6. Generalized weakness and deconditioning. Continue with recommendations of ARU. Possible discharge on Thursday. MARGAUX
[2020-03-08 18:00] VITALS: BP 99/54
[2020-03-08 20:00] VITALS: BP 100/52
[2020-03-08] MEDS: SENNA 8.6 MG TAB (SENOKOT) PO SCH (21:00)
[2020-03-09 06:01] VITALS: BP 120/58
[2020-03-09] MEDS: LEVOTHYROXINE 75MCG TABLET (0.075MG) PO SCH (06:09)
[2020-03-09 06:54] LABS: HEMATOCRIT 27.6 % (36.0-47.0); HEMOGLOBIN 8.8 g/dl (12.0-15.5); MEAN CORPUSCULAR HEMOGLOBIN 29.9 pg (27.0-33.0); MEAN CORPUSCULAR HGB CONC 31.9 g/dl (32.0-36.5); MEAN CORPUSCULAR VOLUME 93.9 fl (80.0-96.0); PLATELET COUNT, AUTOMATED 141 10^3/uL (150-450); RED BLOOD COUNT 2.94 10^6/uL (4.00-5.40)
[2020-03-09 06:55] LABS: WHITE BLOOD COUNT 37.6 10^3/uL (4.0-10.0)
[2020-03-09] MEDS: IPRATROPIUM 0.5MG/ALBUTEROL 2.5MG INH SOL UD 3ML (DUONEB)(J7620) NEB SCH ×3 (07:11→19:53)
[2020-03-09] MEDS: FLUTICASONE HFA 110 MCG 12 GM INHALER (FLOVENT) INH SCH ×2 (07:11→19:53)
[2020-03-09 07:16] LABS: BLOOD UREA NITROGEN 35 MG/DL (7-18); CALCIUM LEVEL 9.1 MG/DL (8.8-10.2); CARBON DIOXIDE LEVEL 28 MEQ/L (21-32); CHLORIDE LEVEL 101 MEQ/L (98-107); CREATININE FOR GFR 3.17 MG/DL (0.55-1.30); GLOMERULAR FILTRATION RATE 14.8 (>32); GLUCOSE, FASTING 73 MG/DL (70-100); POTASSIUM SERUM 4.2 MEQ/L (3.5-5.1); SODIUM LEVEL 139 MEQ/L (136-145)
[2020-03-09 07:44] LABS: ANISOCYTOSIS 2+; ATYPICAL LYMPH 5 % (0-5); BASOPHILS 1 % (0-1); GIANT PLATELETS 1+; LYMPHOCYTES 9 % (16-44); METAMYELOCYTES 4 % (0-0); MONOCYTES 12 % (0-5); MYELOCYTES 5 % (0-0); NEUTROPHILS 61 % (28-66); PLATELET ESTIMATE NORMAL (NORMAL); POLYCHROMASIA 1+; PROMYELOCYTES 1 % (0-0)
[2020-03-09 07:45] LABS: OVALOCYTES 1+
[2020-03-09] MEDS: DOCUSATE SODIUM 100 MG CAP PO SCH ×2 (08:56→21:00)
[2020-03-09 09:00] VITALS: BP 104/54
[2020-03-09] MEDS: CALCITRIOL 0.25 MCG CAP (S0169) PO SCH (09:00)
[2020-03-09] MEDS: REMEDY PHYTOPLEX Z-GUARD PASTE 113GM TUBE (FROM STOREROOM PRODUCT) TOP SCH ×3 (09:00→21:00)
[2020-03-09] MEDS: allopurinoL 100 MG TAB PO SCH (09:01)
[2020-03-09] MEDS: PANTOPRAZOLE 40MG TAB (PROTONIX) PO SCH (09:01)
[2020-03-09] MEDS: APIXABAN 2.5 MG TAB (ELIQUIS) PO SCH ×2 (09:01→21:20)
[2020-03-09] MEDS: MIDODRINE 5 MG TAB PO SCH ×3 (09:01→16:45)
[2020-03-09 11:35] LABS: HEPATITIS B SURFACE ANTIBODY NEGATIVE (POSITIVE)
[2020-03-09 11:46] LABS: HEPATITIS B SURFACE ANTIGEN NEGATIVE (NEGATIVE)
[2020-03-09 11:52] VITALS: BP 108/63
[2020-03-09 12:14] LABS: HEPATITIS B CORE ANTIBODY IGM NEGATIVE (NEGATIVE)
--- NOTE | 2020-03-09 15:05 | IPNPDOC ---
PM&R Progress Note DATE OF SERVICE: March 09, 2020 [employer] Progress Note Subjective: Patient reporting she feels well and is eager to go home. REVIEW OF SYSTEMS: The following is a completed review of systems and has been reviewed. Review of systems otherwise unremarkable. PAIN: Patient self reports no pain EYES: No recent vision changes EARS, NOSE, & THROAT: No throat pain, or dysphagia, or rhinorrhea CARDIOVASCULAR: Denies chest pain or palpitations PULMONARY: Denies shortness of breath GASTROINTESTINAL: Denies constipation/diarrhea GENITOURINARY: denies dysuria MUSCULOSKELETAL: generalized weakness NEUROLOGICAL:+ bilat LE paresthesias HEMATOLOGICAL: denies easy bruising SKIN: denies rash PSYCHIATRIC: Unremarkable All other review of systems found to be negative. PHYSICAL EXAMINATION: VITAL SIGNS: Please see below. GENERAL: Pleasant and cooperative. No acute distress. HEENT: PERRL. Extraocular movements intact. Clear conjunctiva CARDIOVASCULAR: Regular rate and rhythm. No murmurs, rubs, or gallops LUNGS: Clear to auscultation bilaterally. No wheezes. No rhonchi ABDOMEN: Soft, nontender, nondistended. Positive bowel sounds. Normal active bowel sounds NEUROLOGICAL: Alert and oriented times three. Cranial nerves II through XII grossly intact. Sensation diminished to light touch in bilat LE in stocking patter EXTREMITIES:5\5 strength bilateral upper extremities. 5\5 strength right lower extremity. 5/5 strength in left lower extremity. +bilat edema SKIN: right anterior calf laceration, bilat heel blanchable erythema, sacrum without erythema, right chest wall permacath ASSESSMENT:84-year-old F with past medical history of ESRD on HD, CML who presents status post new onset Afib and dialysis dysequilibrium syndrome PLAN: 1. Rehab- PT/OT advance gait and ADLs, energy conservation, stretch/strengthen/m aintain ROM all 4 limbs-room privileges 2. Neuro: peripheral polyneuropathy secondary to ESRD 3. CArdiac: new onset Afib, on renally doses Eliquis -chronic hypotension s/p course of levophed and IV corticosteroids, adrenal insufficiency ruled out on prior unit, c/u midodrine with holding parameters, medicine consulted to assist in overall management 5. resp: hx of RAD/COPD c/u DUonebs and Fluticasone as patient on Ellipta at home -monitor for infection 6. Endo: hyperthyroidism, c/u recently increased dose of Synthroid 7. Renal: ESRD on HD began 01/2020, renal consulted to assist with fluid pat gement and anemia of chronic disease 8. Heme: hx of chronic myeloproliferative disorder, advancing to CML with chronic leukocytosis- f/u with oncology 9. DVT: hx of DVTs on Eliquis, c/u TEDs 10. GI ppx: protonix 11. Pain: tylenol prn -Allopurinol for gout 12. Dispo: 03/13/20 to home, progressing towards goals Allergies Coded Allergies: alendronate sodium (Verified Allergy, Unknown, 02/20/20) enalapril (Verified Allergy, Unknown, 02/20/20) Vital Signs Vital Signs Date Time Temp Pulse Resp B/P (MAP) Pulse Ox O2 Delivery O2 Flow Rate FiO2 03/09/20 11:52 85 108/63 (78) 03/09/20 06:01 98.3 18 94 Room Air Laboratory Data CBC/BMP Laboratory Tests 03/09/20 06:29 Labs 24H Laboratory Tests 2 03/09/20 06:26: 03/09/20 06:29: Immature Granulocyte % (Auto) , Neutrophils (%) (Auto) , Nucleated Red Blood Cells % (auto) 7.3H, Neutrophils 61, Band Neutrophils 2, Lymphocytes (Manual) 9L, Monocytes (Manual) 12H, Basophils (Manual) 1, Metamyelocytes 4H, Myelocytes 5H, Promyelocytes 1H, Atypical Lymphocytes 5, Polychromasia 1+, Anisocytosis 2+, Ovalocytes 1+, Giant Platelets 1+, Platelet Estimate NORMAL, Anion Gap 10, Glomerular Filtration Rate 14.8L, Calcium Level 9.1, Hepatitis B Surface Antigen NEGATIVE, Hepatitis B Surface Antibody NEGATIVE, Hepatitis B Core IgM Antibody NEGATIVE, Hepatitis C Antibody Index 0.0 Current Medications Current Medications Current Medications Medications (Trade) Dose Ordered Sig/Ruthann Route PRN Reason Start Time Stop Time Status Last Admin Dose Admin Acetaminophen (Tylenol Tab) 650 mg Q4HP PRN PO fever/MILD PAIN (PS 1-4) 03/06/20 11:30 Albuterol/ Ipratropium (Duoneb (Ipr 0.5mg/Alb 2.5mg)) 3 ml Q2HP PRN NEB SOB/WHEEZING 03/06/20 11:30 03/06/20 11:47 DC Albuterol/ Ipratropium (Duoneb (Ipr 0.5mg/Alb 2.5mg)) 3 ml RTID NEB 03/06/20 20:00 03/09/20 07:11 Allopurinol (Zyloprim) 200 mg DAILY PO 03/07/20 09:00 03/09/20 09:01 Apixaban (Eliquis) 2.5 mg BID PO 03/06/20 21:00 03/09/20 09:01 Calcitriol (Rocaltrol) 0.25 mcg DAILY PO 03/07/20 09:00 03/09/20 09:00 Darbepoetin Guero (Aranesp (Dialysis Use)) 200 mcg HD IV 03/07/20 10:30 Docusate Sodium (Colace) 100 mg BID PO 03/06/20 21:00 Fluticasone Propionate (Flovent Hfa 110 Mcg) 2 puff RBID INH 03/06/20 20:00 03/09/20 07:11 Home Med (Med Rec Complete!) ASDIRECTED XX 03/06/20 18:15 03/06/20 18:10 DC Levothyroxine Sodium (Synthroid) 75 mcg DAILY@06 PO 03/07/20 06:00 03/09/20 06:09 Midodrine (Proamatine) 10 mg 08,12,16 PO 03/06/20 16:00 03/09/20 11:54 Pantoprazole Sodium (Protonix) 40 mg DAILY PO 03/07/20 09:00 03/09/20 09:01 Senna (Senokot) 1 tab QHS PO 03/06/20 21:00 VIRGINIA CARY MD March 09, 2020 15:05
[2020-03-09] MEDS: SENNA 8.6 MG TAB (SENOKOT) PO SCH (21:00)
[2020-03-09 22:00] VITALS: BP 111/54
[2020-03-10 06:00] VITALS: BP 153/46
[2020-03-10] MEDS: LEVOTHYROXINE 75MCG TABLET (0.075MG) PO SCH (06:16)
[2020-03-10] MEDS: IPRATROPIUM 0.5MG/ALBUTEROL 2.5MG INH SOL UD 3ML (DUONEB)(J7620) NEB SCH ×3 (07:16→20:35)
[2020-03-10] MEDS: FLUTICASONE HFA 110 MCG 12 GM INHALER (FLOVENT) INH SCH ×2 (07:17→20:35)
[2020-03-10] MEDS: allopurinoL 100 MG TAB PO SCH (08:16)
[2020-03-10] MEDS: APIXABAN 2.5 MG TAB (ELIQUIS) PO SCH ×2 (08:16→20:58)
[2020-03-10] MEDS: DOCUSATE SODIUM 100 MG CAP PO SCH ×2 (08:16→20:58)
[2020-03-10] MEDS: MIDODRINE 5 MG TAB PO SCH ×3 (08:16→16:34)
[2020-03-10] MEDS: PANTOPRAZOLE 40MG TAB (PROTONIX) PO SCH (08:16)
[2020-03-10] MEDS: CALCITRIOL 0.25 MCG CAP (S0169) PO SCH (08:16)
[2020-03-10] MEDS: REMEDY PHYTOPLEX Z-GUARD PASTE 113GM TUBE (FROM STOREROOM PRODUCT) TOP SCH ×3 (08:17→20:58)
[2020-03-10 14:00] VITALS: BP 118/60
[2020-03-10 20:37] VITALS: BP 119/60
[2020-03-10] MEDS: SENNA 8.6 MG TAB (SENOKOT) PO SCH (20:58)
[2020-03-11] MEDS: LEVOTHYROXINE 75MCG TABLET (0.075MG) PO SCH (05:27)
[2020-03-11 05:55] VITALS: BP 104/59
[2020-03-11] MEDS: IPRATROPIUM 0.5MG/ALBUTEROL 2.5MG INH SOL UD 3ML (DUONEB)(J7620) NEB SCH ×3 (07:50→19:49)
[2020-03-11] MEDS: FLUTICASONE HFA 110 MCG 12 GM INHALER (FLOVENT) INH SCH ×2 (08:00→20:03)
[2020-03-11] MEDS: APIXABAN 2.5 MG TAB (ELIQUIS) PO SCH ×2 (08:56→20:11)
[2020-03-11] MEDS: PANTOPRAZOLE 40MG TAB (PROTONIX) PO SCH (08:57)
[2020-03-11] MEDS: DOCUSATE SODIUM 100 MG CAP PO SCH ×2 (08:57→20:11)
[2020-03-11] MEDS: CALCITRIOL 0.25 MCG CAP (S0169) PO SCH (08:57)
[2020-03-11] MEDS: MIDODRINE 5 MG TAB PO SCH ×3 (08:57→16:47)
[2020-03-11] MEDS: allopurinoL 100 MG TAB PO SCH (08:57)
[2020-03-11] MEDS: REMEDY PHYTOPLEX Z-GUARD PASTE 113GM TUBE (FROM STOREROOM PRODUCT) TOP SCH ×3 (08:58→20:11)
--- NOTE | 2020-03-11 09:47 | IPN ---
DATE: 03/09/2020 Ms. Dickerson was seen and examined this morning during bedside rounds. She has no complaints today. She is eager to go home, and patient understands she has dialysis today and will not refuse. She just refused the extra session for she states they would tire her out. She has no other complaints today and cannot wait to go home on Thursday, March 13, 2020. Her ramp in her house has been completed. No overnight events have been reported by nursing. PHYSICAL EXAMINATION: Vital Signs: Temperature 98.3, pulse 62, respirations 18, blood pressure 120/58 (78), pulse oximetry 94% on room air. Intake total: 840 mL, output total 0 mL with a balance of positive 840 mL. No ultrafiltration was done yesterday. Weight this morning is 62.5 kg. General: This is a very pleasant 84-year-old female who does not appear in acute distress, appropriately answering questions. HEENT: Atraumatic, normocephalic. No jugular venous distention (JVD) noted. Cardiovascular: Irregularly irregular, rate controlled. No audible murmurs, rubs or gallops. Respiratory: Clear to auscultate bilaterally. Very minimal bibasilar crackles appreciated. Abdomen: Soft, nontender, very minimal ascites appreciated in the flanks. Extremities: Continues to have dependent edema in the sacrum, 2+ at the hips versus minimal in the lower extremities consistent with yesterday's exam. Slightly worse today because she skipped dialysis but consistent. Neurologic: No focal deficits noted. LABORATORY DATA: WBC 37.6, hemoglobin 8.8, hematocrit 27.6, platelets 141. Sodium 139, potassium 4.2, chloride 101, carbon dioxide 28, anion gap 10, BUN 35, creatinine 3.17, fasting glucose 73, calcium 9.1. Hepatitis B panel is negative as well as hepatitis C panel. MEDICATIONS: No medications were adjusted. ASSESSMENT AND PLAN: 1. End-stage renal disease. Normal sessions Thursday, Thursday, Thursday. She will go to dialysis today, and the goal is to remove two liters pending her blood pressure tolerance. 2. Generalized anasarca, improved with continued dialysis even though she refused her extra ultrafiltration session. If she continues with the regular Thursday, Thursday, Thursday schedule, her volume status should continue to be optimized. 3. Chronic hypotension. Continue with her midodrine 10 mg three times a day. 4. 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 Continue with Aranesp and Venofer while at dialysis. Recommendation to transfuse if her hemoglobin is under 8. 5. Chronic myelomonocytic leukemia. Currently stable. 6. Deconditioning. Continue with recommendation of acute rehabilitation unit (ARU), possible discharge on Thursday. MARGAUX
[2020-03-11 14:00] VITALS: BP 104/59
--- NOTE | 2020-03-11 15:17 | IPN ---
DATE OF VISIT: 03/10/2020 Mrs. Dickerson is seen this morning on her bedside. She is discouraged as she could not be discharged yesterday due to lack of a hospital bed. She is now anticipating delivery of her hospital bed on Thursday. She did have dialysis yesterday which she tolerated well. Her volume status has improved and leg edema is now minimal. She is able to walk with the help of walker within her room. She denies any nausea or vomiting. On physical exam, temperature 97.4 degrees Fahrenheit, heart rate 96 per minute, and respiratory rate 18 per minute. Blood pressure 153/46 mmHg and oxygen saturation 100% on room air. Head is atraumatic. Neck is supple and jugular venous distention (JVD) not abnormally elevated. Heart sounds are somewhat tachycardiac and lungs clear to auscultation. Abdomen, soft, somewhat protuberant but nontender. Bowel sounds are normal. Extremities without any cyanosis or clubbing. Lower extremity edema is only 1+. Neurologically, she is awake, alert and oriented times three. Yesterday's labs were reviewed. BUN was 35 and creatinine 3.17. WBC count 37.6, hemoglobin 8.8, and hematocrit 27.6. Platelets 141. No labs done today. PROBLEMS: 1. End-stage renal disease. The patient has been dialysis dependent and she was dialyzed yesterday. No urgent need for dialysis today. She will have her next dialysis scheduled for Thursday. 2. Congestive heart failure and hypervolemia. Her volume status is now much improved and compensated. She is not on any diuretic and her volume is being managed with dialysis. No urgent need for dialysis today. 3. Generalized weakness and deconditioning. Her weakness has improved and she is now able to ambulate with the help of walker. 4. Anemia. Her anemia has been stable and we will continue with Aranesp with dialysis once a week. 5. Chronic leukemia. This has been unchanged without any acute blastic changes. No intervention is needed.
[2020-03-11 20:00] VITALS: BP 104/62
[2020-03-11] MEDS: SENNA 8.6 MG TAB (SENOKOT) PO SCH (20:11)
[2020-03-12] MEDS: LEVOTHYROXINE 75MCG TABLET (0.075MG) PO SCH (06:16)
[2020-03-12 06:17] VITALS: BP 100/66
[2020-03-12] MEDS: FLUTICASONE HFA 110 MCG 12 GM INHALER (FLOVENT) INH SCH (07:25)
[2020-03-12] MEDS: IPRATROPIUM 0.5MG/ALBUTEROL 2.5MG INH SOL UD 3ML (DUONEB)(J7620) NEB SCH (07:25)
[2020-03-12 07:49] LABS: HEMATOCRIT 30.4 % (36.0-47.0); HEMOGLOBIN 9.4 g/dl (12.0-15.5); MEAN CORPUSCULAR HEMOGLOBIN 29.2 pg (27.0-33.0); MEAN CORPUSCULAR HGB CONC 30.9 g/dl (32.0-36.5); MEAN CORPUSCULAR VOLUME 94.4 fl (80.0-96.0); PLATELET COUNT, AUTOMATED 151 10^3/uL (150-450); RED BLOOD COUNT 3.22 10^6/uL (4.00-5.40)
[2020-03-12] MEDS: MIDODRINE 5 MG TAB PO SCH ×2 (08:00→11:44)
[2020-03-12 08:05] LABS: CALCIUM LEVEL 8.7 MG/DL (8.8-10.2); CREATININE FOR GFR 3.35 MG/DL (0.55-1.30); GLOMERULAR FILTRATION RATE 13.9 (>32); POTASSIUM SERUM 4.3 MEQ/L (3.5-5.1)
[2020-03-12 08:24] LABS: BASOPHILS 2 % (0-1); EOSINOPHILS 3 % (0-3); LYMPHOCYTES 14 % (16-44); METAMYELOCYTES 1 % (0-0); MONOCYTES 4 % (0-5); MYELOCYTES 1 % (0-0); NEUTROPHILS 64 % (28-66)
[2020-03-12] MEDS: APIXABAN 2.5 MG TAB (ELIQUIS) PO SCH (08:26)
[2020-03-12] MEDS: PANTOPRAZOLE 40MG TAB (PROTONIX) PO SCH (08:26)
[2020-03-12] MEDS: CALCITRIOL 0.25 MCG CAP (S0169) PO SCH (08:26)
[2020-03-12] MEDS: DOCUSATE SODIUM 100 MG CAP PO SCH (08:26)
[2020-03-12] MEDS: allopurinoL 100 MG TAB PO SCH (08:26)
[2020-03-12] MEDS: REMEDY PHYTOPLEX Z-GUARD PASTE 113GM TUBE (FROM STOREROOM PRODUCT) TOP SCH (08:26)
[2020-03-12 08:28] LABS: ANISOCYTOSIS 2+; PLATELET ESTIMATE NORMAL (NORMAL); POLYCHROMASIA 2+
[2020-03-12] MEDS ORDERED: MIDO5TA PO (10:49)
[2020-03-12] MEDS ORDERED: CALC1CAP31 PO (10:49)
[2020-03-12] MEDS ORDERED: PANT40TA3 PO (10:49)
[2020-03-12] MEDS ORDERED: LEVO75TA4 PO (10:49)
[2020-03-12] MEDS ORDERED: ELIQ2.5T PO (10:49)
[2020-03-12] MEDS ORDERED: ALLO10TA PO (10:49)
[2020-03-12 11:42] VITALS: BP 106/63
--- NOTE | 2020-03-13 07:42 | IPN ---
DATE OF SERVICE: 03/12/2020 Ms. Dickerson is seen and examined this morning during bedside rounds. She is laying comfortably in her bed in acute rehabilitation unit (ARU). She has no complaints today. She is very excited she is going home. She would like to know if we can get the check out nurse so she can get out of here. She really has no complaints today and states that she will be compliant with her dialysis, which her next session is tomorrow. There were no overnight events reported by nursing. PHYSICAL EXAMINATION: Vitals: Temperature 98.7, pulse 84, respirations 18, blood pressure 100/66 (77), pulse oximetry 94% on room air. Intake total 870, output total 0, nothing was recorded, balance 870 mL with a weight of 61.4 kg today. General: This is a very pleasant, 84-year-old elderly female laying comfortably in bed. Does not appear in any acute distress, alert and oriented times three. HEENT: Atraumatic, normocephalic. No jugular venous distention (JVD). Heart: Tachycardic rate, regular rhythm. Lungs: Clear to auscultate bilaterally. Abdomen: Soft. Nontender. Extremities: 1-2+ pitting edema bilaterally in the lower extremities. Neurologic: Alert and oriented times three. No obvious focal deficits noted. LABORATORIES: Hematology: WBC 41.0, hemoglobin 9.4, hematocrit 30.4, and platelets 151. Chemistry: Sodium 137, potassium 4.3, chloride 103, carbon dioxide 25, anion gap 9, BUN 51, creatinine 3.35, fasting glucose 107, calcium 8.7. Her hepatitis B and C panel is negative. ASSESSMENT AND PLAN: 1. End stage renal disease. She is dialysis dependent. Her dialysis schedule is Thursday, Thursday and Thursday. She will be discharged today after her last dialysis session today. She will followup outpatient on Thursday. 2. Congestive heart failure with hypervolemia. Volume status is improved and compensated with the dialysis. Currently not on any diuretics and is managed very well with the dialysis so will continue as scheduled. 3. Generalized weakness and deconditioning. This was managed per ARU and has improved. She is safe for discharge from their point of view. 4. Anemia. Will continue with Aranesp with dialysis once a week. 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 No blastic changes noted.
== END 2020-03-12 13:25 | disposition home or self-care (01) | DRG 73 ==
LOC: M PM&R 16:55
PROVIDERS: ADMIT Physical Medicine & Rehabilitation; ATTEND Physical Medicine & Rehabilitation
PROC: 5A1D70Z Performance of Urinary Filtration, Intermittent, Less than 6 Hours Per Day (ICD-10-PCS; principal; 2020-03-07)
DX: G62.9 Polyneuropathy, unspecified (principal); N18.6 End stage renal disease; C92.10 Chronic myeloid leukemia, BCR/ABL-positive, not having achieved remission; J45.901 Unspecified asthma with (acute) exacerbation; I48.91 Unspecified atrial fibrillation; I95.89 Other hypotension; E03.9 Hypothyroidism, unspecified; M10.9 Gout, unspecified; D63.1 Anemia in chronic kidney disease; E55.9 Vitamin D deficiency, unspecified; I50.9 Heart failure, unspecified; E87.70 Fluid overload, unspecified; D63.0 Anemia in neoplastic disease; Z66 Do not resuscitate; Z99.2 Dependence on renal dialysis; Z86.718 Personal history of other venous thrombosis and embolism; Z79.01 Long term (current) use of anticoagulants; Z79.899 Other long term (current) drug therapy; Z88.8 Allergy status to other drugs, medicaments and biological substances

== ENCOUNTER → 2020-03-27 | Outpatient (CLI) | payer MEDICARE, OTHER ==
[~2020-03-27] MED LIST changes: +LEVO75TA4 PO; +PANT40TA3 PO
== END ==
LOC: M IRPRO 11:59
PROVIDERS: ATTEND Internal Medicine Nephrology
DX: R18.8 Other ascites (principal); Z53.8 Procedure and treatment not carried out for other reasons

== ENCOUNTER → 2020-04-03 | Outpatient (CLI) | payer MEDICARE, OTHER ==
[~2020-04-03] MED LIST changes: +PANT-23 PO; +PATIENT COMMENTS; +SODIUM BICARBONATE 8.4% INJ 50MEQ 50 ML VIAL As Ordered ONE; +SYNT75TA PO
[2020-04-03 13:45] VITALS: BP 95/58
--- NOTE | 2020-04-04 19:54 | REP ---
Ultrasound-guided paracentesis The procedure was performed by WILL Hawk, under the direct supervision of Dr. South. The risks and benefits of the procedure were explained to the patient and informed consent was obtained both verbally and written. Directly prior to the start of the procedure, a formal timeout was completed in the procedure room. Under ultrasound guidance, the largest pocket of fluid in the right flank was localized and skin was marked. The skin was then prepped and draped in a sterile fashion. 11 ml of buffered lidocaine l was used as a local anesthetic. Using ultrasound guidance, an 8-Turkish multi side-hole catheter was inserted using trocar technique. 3,800 mL of yellow colored fluid was withdrawn and discarded. The patient tolerated the procedure well and there were no immediate complications. After the appropriate monitored convalescence the patient was discharged from the department. Reviewed by WILL Aguayo 04/03/2020 03:59 P Electronically Signed by Ed South MD 04/04/2020 07:46 P
== END ==
LOC: M IRPRO 12:22
PROVIDERS: ATTEND Internal Medicine Nephrology
DX: R18.8 Other ascites (principal)

== ENCOUNTER 2020-04-07 22:02 | Inpatient (IN) | payer MEDICARE, OTHER ==
[~2020-04-07] VITALS: Ht 167.6 cm; Wt 73.3 kg
[~2020-04-07 22:02] MED LIST changes: -PANT-23 PO; -PATIENT COMMENTS; -SODIUM BICARBONATE 8.4% INJ 50MEQ 50 ML VIAL As Ordered ONE; -SYNT75TA PO
[2020-04-07 23:50] VITALS: BP 83/54
[2020-04-08] VITALS (81 sets, daily range): BP systolic 70–118; BP diastolic 41–65
[2020-04-08] MEDS ORDERED: HEPARIN SOD (PORCINE) 5000UNITS/ML VIAL (J1644 PER 1000UNITS) SC SCH (00:30)
[2020-04-08] MEDS ORDERED: PANT-23 PO (00:53)
[2020-04-08] MEDS ORDERED: SYNT75TA PO (00:53)
[2020-04-08] MEDS ORDERED: MIDO5TA PO (00:53)
[2020-04-08] MEDS ORDERED: PATIENT COMMENTS (01:00)
[2020-04-08] MEDS ORDERED: HEPARIN SOD (PORCINE) 5000UNITS/ML VIAL (J1644 PER 1000UNITS) IV STA (01:06)
--- NOTE | 2020-04-08 01:18 | HPEPDOC ---
General Date of Admission Apr 07, 2020 at 23:29 Date of Service: Apr 08, 2020 Chief Complaint The patient is a 84-year-old female admitted with a reason for visit of Pulmonary Effusion. Source: Patient Exam Limitations: No limitations Timing/Duration: 24 hours Severity: Moderate Associated Symptoms: Weakness, Hypotension History of Present Illness Patient is 84 years old female with past medical history of ESRD on HD, chronic hypotension, CML, HTN, reactive airway disease/COPD, hx of DVT on Eliquis, vitamin D deficiency who was transferred to [facility] from [facility] with right upper extremity pain and hypotension. For past 3 days patient developed severe right upper extremity pain located in the area of the right shoulder, right arm right elbow. Patient denied any shortness of breath, fever or chills. In [facility] patient was found to have left pulmonary effusion with pulmonary edema on the chest x-ray. Right upper extremity Doppler ultrasound showed deep tenderness thrombosis of the right brachial vein. Blood result from the [facility] showed white blood count of 23.9, hemoglobin 9.5, sodium 137, potassium 3.5, chloride 101, BUN 31, crea tinine 3.2, glucose 107. Blood pressure on their arrival was 80/40. Earlier today patient developed atrial fibrillation. Home Medications Scheduled Allopurinol (Allopurinol) 100 Mg Tab, 200 MG PO DAILY, (Reported) Apixaban (Eliquis) 2.5 Mg Tab, 2.5 MG PO BID, (Reported) Calcitriol (Calcitriol) 0.25 Mcg Cap, 0.25 MCG PO DAILY, (Reported) Cholecalciferol (Vitamin D3) (Vitamin D3) 50 Mcg Tablet, 2,000 UNITS PO DAILY, (Reported) Denosumab Injection (Prolia) 60 Mg/1 Ml Syringe, 60 MG SC ASDIRECTED, (Reported) INJECT 60 MG SUBQ EVERY 6 MONTHS DIRECTED Levothyroxine Sodium (Synthroid) 75 Mcg Tablet, 75 MCG PO DAILY, (Reported) Midodrine HCl (Midodrine HCl) 5 Mg Tablet, 5 MG PO TID, (Reported) TAKES AT 0800, 1200, AND 1600 Pantoprazole Sodium (Pantoprazole Sodium) 40 Mg Tablet.dr, 40 MG PO DAILY, (Reported) Umeclidinium Brm/Vilanterol Tr (Anoro Ellipta 62.5-25 Mcg INH) 1 Aer Aer, 1 PUFF PO DAILY, (Reported) Miscellaneous Medications [Patient Comments] , (Reported) PATIENT UNABLE TO REMAIN AWAKE AT THIS TIME TO REVIEW MEDICATION HISTORY. MEDICATIONS LISTED ARE ACTIVE AT HER PHARMACY AND WILL BE VERIFIED SOON THE PHARMACY IS ABLE TO BE CONTACTED. Allergies Coded Allergies: alendronate sodium (Verified Allergy, Unknown, 02/20/20) enalapril (Verified Allergy, Unknown, 02/20/20) Past Medical History Medical History End-stage renal disease on hemodialysis via permacath (Thursday, Thursday, Thursday; began dialysis in January 2020) New onset atrial fibrillation Myeloproliferative disorder, follows with medical oncology: As of visit on 02/07/20 with metabolic, patient has evolved into chronic myelomonocytic leukemia with a very high likelihood that will develop further into acute myeloid leukemia Hypertension Bronchospastic/reactive airway disease History of DVT on Eliquis; patient reports DVT was 45 years ago 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 Vitamin D deficiency Gout Surgical History PermaCath, Family History I personally reviewed family history and found no pertinent Social History * Smoker: former Smoker Alcohol: Denies Drugs: denies A-FIB/CHADSVASC A-FIB History Current/History of A-Fib/PAF?: Yes Current PO Anticoag Therapy: Yes Review of Systems Constitutional: Denies: Chills, Fever Eyes: Denies: Pain ENT: Denies: Head Aches Skin: Reports: Bruising; Denies: Jaundice Pulmonary: Denies: Cough Cardiovascular: Denies: Chest Pain Gastrointestinal: Denies: Nausea Genitourinary: Denies: Dysuria Hematologic: Reports: Bruising; Denies: Petecchia, Purpura Endocrine: Denies: Polydipsia Musculoskeletal: Reports: Arm Pain Neurological: Denies: Weakness Psych: Reports: Mood Normal Physical Examination General Exam: Positive: Alert, Cooperative Eye Exam: Positive: PERRLA ENT Exam: Positive: Atraumatic Neck Exam: Positive: Supple, JVD Chest Exam: Positive: Rales Heart Exam: Positive: Irregular Rhythm Telemetry: Positive: Atrial fibrillation Abdomen Exam: Positive: Normal bowel sounds Extremity Exam: Positive: Edema (+3 nonpitting edema of LE), Swelling (significant swelling of upper and lower extremities) Skin Exam: Positive: Other skin issue (skin changes consistent with venous stasis) Neuro Exam: Positive: Strength at 5/5 X4 ext, Cranial Nerves 3-12 NL Psych Exam: Positive: Mental status NL Vital Signs [id number] Assessment/Plan Patient is 84 years old female with past medical history of ESRD on HD, chronic hypotension, CML, HTN, reactive airway disease/COPD, hx of DVT on Eliquis, vitamin D deficiency who was transferred to [facility] from [facility] with right upper extremity pain and hypotension. For past 3 days patient developed severe right upper extremity pain located in the area of the right shoulder, right arm right elbow. Patient denied any shortness of breath, fever or chills. In [facility] patient was found to have left pulmonary effusion with pulmonary edema on the chest x-ray. Right upper extremity Doppler ultrasound showed deep tenderness thrombosis of the right brachial vein. Blood result from the [facility] showed white blood count of 23.9, hemoglobin 9.5, sodium 137, potassium 3.5, chloride 101, BUN 31, creatinine 3.2, glucose 107. Blood pressure on their arrival was 80/40. Earlier today patient developed atrial fibrillation. Problems (1) DVT of axillary vein, acute right Status: Acute Problem Text: Patient developed DVT on Eliquis Eliquis should be changed to Coumadin I will start heparin drip for now (2) ESRD on dialysis Status: Chronic Problem Text: Patient severely volume overloaded, she has a pulmonary edema with significant lower extremity edema Patient will need dialysis in the morning. I talked to Dr. Paniagua he will see her in a.m. (3) Hypotension Status: Acute Problem Text: We'll start pressors after central line placement (4) Fluid overload Status: Acute Problem Text: We will start dialysis in the morning (5) Pulmonary edema Status: Acute Problem Text: Patient does not have any shortness of breath for now Patient developed pulmonary edema secondary to severe volume overload Dialysis in a.m. (6) Atrial fibrillation Status: Chronic Problem Text: Continue anticoagulation We will hold beta blockers due to hypotension Plan / VTE VTE Prophylaxis Ordered?: Yes ABDIRIZAK FREEMAN DO Apr 08, 2020 01:18
[2020-04-08 01:20] LABS: HEMATOCRIT 29.8 % (36.0-47.0); HEMOGLOBIN 9.2 g/dl (12.0-15.5); MEAN CORPUSCULAR HEMOGLOBIN 28.9 pg (27.0-33.0); MEAN CORPUSCULAR HGB CONC 30.9 g/dl (32.0-36.5); MEAN CORPUSCULAR VOLUME 93.7 fl (80.0-96.0); PLATELET COUNT, AUTOMATED 128 10^3/uL (150-450); RED BLOOD COUNT 3.18 10^6/uL (4.00-5.40); WHITE BLOOD COUNT 19.3 10^3/uL (4.0-10.0)
[2020-04-08] MEDS ORDERED: NOREPINEPHRINE BITARTRATE 8 MG in D5W 492 ML IV SCH ×2 (01:30→11:18)
[2020-04-08 02:13] LABS: ALBUMIN 1.7 GM/DL (3.2-5.2); BILIRUBIN,TOTAL 0.6 MG/DL (0.2-1.0); CALCIUM LEVEL 7.8 MG/DL (8.8-10.2); CREATININE FOR GFR 3.01 MG/DL (0.55-1.30); GLOMERULAR FILTRATION RATE 15.7 (>32); POTASSIUM SERUM 3.5 MEQ/L (3.5-5.1); TOTAL PROTEIN 4.7 GM/DL (6.4-8.2)
[2020-04-08] MEDS: HEPARIN DRIP 25,000 UNITS in IV 1 EA IV SCH (03:16)
[2020-04-08 05:03] LABS: CALCIUM LEVEL 7.3 MG/DL (8.8-10.2); CREATININE FOR GFR 3.02 MG/DL (0.55-1.30); GLOMERULAR FILTRATION RATE 15.6 (>32); MAGNESIUM LEVEL 1.6 MG/DL (1.8-2.4); POTASSIUM SERUM 3.3 MEQ/L (3.5-5.1)
[2020-04-08] MEDS ORDERED: MAGNESIUM GLUCONATE 500 MG TAB PO STA (05:14)
[2020-04-08] MEDS ORDERED: POTASSIUM CHLORIDE 10 MEQ SR TABLET PO ONE ×2 (05:15→14:00)
[2020-04-08] MEDS: LEVOTHYROXINE 75MCG TABLET (0.075MG) PO SCH ×2 (05:35→18:32)
[2020-04-08] MEDS ORDERED: METOPROLOL TART 25 MG TABLET PO SCH (06:00)
--- NOTE | 2020-04-08 06:44 | REP ---
Clinical: Central line placement. Comparison: 04/08/2020. Findings: Left subclavian catheter extends into the superior vena cava. Double-lumen central line via right internal jugular vein extends into the right atrium. Cardiac silhouette is normal. Lung guzmán demonstrate diffuse chronic interstitial changes. Superimposed left perihilar and left lower lobe opacities suggest elements of infiltrate/atelectasis and possible pleural effusion. No pneumothorax. Skeletal structures are intact. Impression: 1. Left-sided subclavian catheter with tip in the SVC. No pneumothorax. 2. Left perihilar and left lower lobe opacities suggesting atelectasis and possible small left pleural effusion/reaction. Electronically Signed by Matthew Patel MD 04/08/2020 06:34 A
--- NOTE | 2020-04-08 07:05 | REP ---
Clinical: Pulmonary fusion. Comparison: 02/23/2020 Findings: Double-lumen dialysis catheter extends into the right atrium. Mediastinum and cardiac silhouette are stable. Lung guzmán demonstrate diffuse chronic interstitial changes. Subtle superimposed basilar atelectasis (left greater than right) and possible small left pleural effusion cannot be excluded. Skeletal structures are intact. Impression: Chronic stable changes. Superimposed basilar atelectasis, left lower lobe consolidation and small left pleural effusion cannot be excluded. Electronically Signed by Matthew Patel MD 04/08/2020 06:56 A
[2020-04-08] MEDS ORDERED: MIDODRINE 5 MG TAB PO SCH (08:00)
[2020-04-08] MEDS: PANTOPRAZOLE 40MG TAB (PROTONIX) PO SCH (09:29)
[2020-04-08] MEDS: CALCITRIOL 0.25 MCG CAP (S0169) PO SCH (09:30)
[2020-04-08] MEDS: allopurinoL 100 MG TAB PO SCH (09:30)
[2020-04-08 09:35] LABS: HEMATOCRIT 29.5 % (36.0-47.0)
[2020-04-08 10:37] LABS: CLOSTRIDIUM DIFFICILE PCR NEGATIVE (NEGATIVE)
[2020-04-08] MEDS ORDERED: MEROPENEM INJ 1 GM in IV 1 EA IV SCH (12:00)
[2020-04-08] MEDS ORDERED: VANCOMYCIN HCL 1,000 MG, VIAL MATE ADAPTER 1 EACH in D5W 250 ML IV ONE (13:00)
[2020-04-08] MEDS: MIDODRINE 5 MG TAB PO SCH ×2 (13:07→15:47)
[2020-04-08] MEDS: NOREPINEPHRINE BITARTRATE 16 MG in D5W 484 ML IV SCH (13:24)
[2020-04-08] MEDS ORDERED: MAG SULF 1GM/100ML (MAG RUN) 1 GM in IV 1 EA IV ONE (14:00)
[2020-04-08 14:44] LABS: HEMATOCRIT 29.5 % (36.0-47.0); MEAN CORPUSCULAR HEMOGLOBIN 28.3 pg (27.0-33.0); MEAN CORPUSCULAR HGB CONC 30.5 g/dl (32.0-36.5); MEAN CORPUSCULAR VOLUME 92.8 fl (80.0-96.0); PLATELET COUNT, AUTOMATED 168 10^3/uL (150-450); RED BLOOD COUNT 3.18 10^6/uL (4.00-5.40); WHITE BLOOD COUNT 29.6 10^3/uL (4.0-10.0)
[2020-04-08 15:04] LABS: CALCIUM LEVEL 7.3 MG/DL (8.8-10.2); CREATININE FOR GFR 3.21 MG/DL (0.55-1.30); GLOMERULAR FILTRATION RATE 14.6 (>32); MAGNESIUM LEVEL 1.7 MG/DL (1.8-2.4); POTASSIUM SERUM 4.2 MEQ/L (3.5-5.1)
[2020-04-09] VITALS (82 sets, daily range): BP systolic 60–122; BP diastolic 43–77
[2020-04-09] MEDS: ACETAMINOPHEN TAB 650MG DOSE (2X325MG) PO PRN ×4 (01:03→23:00)
[2020-04-09] MEDS: LEVOTHYROXINE 75MCG TABLET (0.075MG) PO SCH (05:27)
[2020-04-09 06:08] LABS: HEMATOCRIT 28.5 % (36.0-47.0); HEMOGLOBIN 9.1 g/dl (12.0-15.5); MEAN CORPUSCULAR HEMOGLOBIN 29.3 pg (27.0-33.0); MEAN CORPUSCULAR HGB CONC 31.9 g/dl (32.0-36.5); MEAN CORPUSCULAR VOLUME 91.6 fl (80.0-96.0); PLATELET COUNT, AUTOMATED 156 10^3/uL (150-450); RED BLOOD COUNT 3.11 10^6/uL (4.00-5.40)
[2020-04-09 06:32] LABS: ANISOCYTOSIS 1+; BASOPHILS 2 % (0-1); LYMPHOCYTES 32 % (16-44); METAMYELOCYTES 1 % (0-0); MONOCYTES 2 % (0-5); MYELOCYTES 1 % (0-0); NEUTROPHILS 51 % (28-66); PLATELET ESTIMATE NORMAL (NORMAL)
[2020-04-09 06:36] LABS: ALBUMIN 1.9 GM/DL (3.2-5.2); BILIRUBIN,TOTAL 0.5 MG/DL (0.2-1.0); CALCIUM LEVEL 7.3 MG/DL (8.8-10.2); CREATININE FOR GFR 3.5 MG/DL (0.55-1.30); GLOMERULAR FILTRATION RATE 13.2 (>32); POTASSIUM SERUM 4.8 MEQ/L (3.5-5.1); TOTAL PROTEIN 4.5 GM/DL (6.4-8.2)
[2020-04-09] MEDS: MIDODRINE 5 MG TAB PO SCH ×3 (08:39→16:34)
[2020-04-09] MEDS: PANTOPRAZOLE 40MG TAB (PROTONIX) PO SCH (08:39)
[2020-04-09] MEDS: allopurinoL 100 MG TAB PO SCH (08:40)
[2020-04-09] MEDS: CALCITRIOL 0.25 MCG CAP (S0169) PO SCH (08:40)
--- NOTE | 2020-04-09 10:14 | IPNPDOC ---
Subjective Date Seen The patient was seen on 04/09/20. Subjective Chief Complaint/HPI Patient is comfortable, alert, oriented 3, eating her breakfast offers no new complaints General: Denies: ROS Unobtainable, Chills, Night Sweats, Fatigue, Malaise, Normal Appetite, Other Symptoms Constitutional: Denies: Chills, Fever, Malaise, Night Sweats, Weakness, Fatigue, Weight Loss, Lethargy, Other Pulmonary: Denies: Dyspnea, Cough, Pleuritic Chest Pain, Other Symptoms Cardiovascular: Denies: Chest Pain, Palpitations, Orthopnea, Paroxysmal Noc. D yspnea, Edema, Lt Headedness, Other Symptoms Gastrointestinal: Denies: Nausea, Vomiting, Abdominal Pain, Diarrhea, Constipation, Melena, Hematochezia, Other Symptoms Musculoskeletal: Denies: Neck Pain, Back Pain, Shoulder Pain, Arm Pain, Hand Pain, Leg Pain, Foot Pain, Joint Pain, Muscle Pain, Spasms, Other Symptoms Neurological: Denies: Weakness, Numbness, Incoordination, Change in speech, Confusion, Seizures, Other Symptoms Objective Physical Examination General Exam: Positive: Alert, Cooperative Neck Exam: Positive: Supple, JVD Chest Exam: Positive: Rales Heart Exam: Positive: Irregular Rhythm Telemetry: Positive: Atrial fibrillation Abdomen Exam: Positive: Normal bowel sounds Extremity Exam: Positive: Edema (+3 nonpitting edema of LE), Swelling (significant swelling of upper and lower extremities) Skin Exam: Positive: Other skin issue (skin changes consistent with venous stasis) Assessment /Plan Problems (1) Sepsis Status: Acute Problem Text: Patient will most likely is sepsis of unknown etiology Blood cultures after 24 hours are negative, but will await final report UA is negative Chest x-ray did not show any infiltrate, just atelectasis Patient was started on Vanco and Merrem by Dr. Paniagua yesterday Will continue meropenem and add vancomycin 1 g IV after dialysis Currently on vasopressors for blood pressure control, we'll try to titrate it down to patient tolerates. WBC count is 32,000 with the hemoglobin 9.1, hematocrit 28.5, electrolytes are normal except BUN of 48 and creatinine of 2.5 BUN of 40 8X Unfortunately, we don't have a ID consult available this week, will monitor patient's WBC count on IV antibiotics but patient is afebrile at the present time Follow-up labs in a.m. and will repeat chest x-ray today (2) DVT of axillary vein, acute right Status: Acute Problem Text: Patient developed DVT on Eliquis Patient is currently on heparin which can be switched to by mouth Coumadin before discharge as patient developed DVT on eliquis. (3) Volume overload Status: Acute Problem Text: Discuss with Dr. Paniagua Possible hemodialysis today (4) ESRD on dialysis Status: Chronic Problem Text: End-stage renal disease on hemodialysis Nephrology consult appreciated Possible HD today (5) Atrial fibrillation Status: Chronic Problem Text: Continue anticoagulation with heparin We will hold beta blockers due to hypotension Telemetry monitoring Plan/VTE VTE Prophylaxis Ordered?: Yes VS, I&O, 24H, [facility] Vital Signs/I&O Vital Signs Date Time Temp Pulse Resp B/P (MAP) Pulse Ox O2 Delivery O2 Flow Rate FiO2 04/09/20 06:00 86 16 96/71 (79) 94 Room Air 04/09/20 04:00 96.8 I&O- Last 24 Hours up to 6 AM0 04/09/20 06:00 Intake Total 1247.4 ml Output Total 300 ml Balance 947.4 ml Laboratory Data 24H LABS Laboratory Tests 2 04/08/20 13:00: Urine Color PHIL, Urine Appearance HAZY, Urine pH 5.0, Urine Specific [place] 1.020, Urine Protein 2+H, Urine Glucose (UA) NEGATIVE, Urine Ketones NEGATIVE, Urine Blood NEGATIVE, Urine Nitrite NEGATIVE, Urine Bilirubin 1+H, Urine Urobilinogen 2.0H, Urine Leukocyte Esterase TRACEH, Urine WBC (Auto) 6H, Urine RBC (Auto) 3, Urine Hyaline Casts (Auto) 4, Urine Bacteria (Auto) NEGATIVE, Urine Squamous Epithelial Cells 1, Urine Amorphous Sediment SMALLH, Urine Granular Casts (Auto) 2, Urine Mucus (Auto) SMALL, Urine Sperm (Auto) 04/08/20 14:29: Nucleated Red Blood Cells % (auto) 11.0H, Anion Gap 11, Glomerular Filtration Rate 14.6L, Calcium Level 7.3L, Magnesium Level 1.7L 04/08/20 17:28: Activated Partial Thromboplast Time 78.1H 04/09/20 00:15: Activated Partial Thromboplast Time 100.1H 04/09/20 05:55: Immature Granulocyte % (Auto) , Neutrophils (%) (Auto) , Nucleated Red Blood Cells % (auto) 10.6H, Neutrophils 51, Band Neutrophils 11, Lymphocytes (Manual) 32, Monocytes (Manual) 2, Basophils (Manual) 2H, Metamyelocytes 1H, Myelocytes 1H, Anisocytosis 1+, Platelet Estimate NORMAL, Activated Partial Thromboplast Time 99.1H, Anion Gap 10, Glomerular Filtration Rate 13.2L, Calcium Level 7.3L, Total Bilirubin 0.5, Aspartate Amino Transf (AST/SGOT) 17, Alanine Aminotransferase (ALT/SGPT) 10L, Alkaline Phosphatase 163H, Total Protein 4.5L, Albumin 1.9L, Albumin/Globulin Ratio 0.7L CBC/BMP Laboratory Tests 04/08/20 14:29 04/09/20 05:55 Microbiology Microbiology 04/08/20 Urine Culture, Received Pending 04/08/20 Stool Occult Blood (TAMIE) - Final, Complete 04/08/20 Blood Culture - Preliminary, Resulted No growth after 24 hours . All specim... AGUILA HESS MD Apr 09, 2020 10:14
[2020-04-09] MEDS ORDERED: VANCOMYCIN HCL 1,000 MG, VIAL MATE ADAPTER 1 EACH in D5W 250 ML IV SCH (10:15)
[2020-04-09 10:24] LABS: MAGNESIUM LEVEL 1.8 MG/DL (1.8-2.4)
[2020-04-09 11:18] LABS: VANCOMYCIN RANDOM 10.1 UG/ML
--- NOTE | 2020-04-09 12:07 | CR ---
DATE OF CONSULTATION: 04/08/2020 NEPHROLOGY CONSULTATION FOR: William Gallardo DO REASON FOR CONSULTATION: Is to assist in the management of end-stage renal disease and generalized anasarca. HISTORY OF PRESENT ILLNESS: Mrs. Dickerson is an 84-year-old female with multiple chronic medical problems, including a history of chronic myeloid leukemia (CML), chronic obstructive pulmonary disease (COPD), history of prior deep venous thrombosis (DVT) on chronic anticoagulation with Eliquis, and a history of chronic hypotension. She has been recently started on hemodialysis due to end-stage renal disease, however has not been doing well due to chronic hypotension. She has generalized edema with difficulty fluid removal due to hypotension. She has been on midodrine 10 mg three times a day. The patient is transferred to [facility] from [facility] due to DVT in her right upper extremity. She had pain in her right upper extremity due to which she went to the emergency room at [facility] and ultrasound did show DVT due to which she was transferred here. She also has generalized edema on lower extremities and a nephrology consultation was requested for potential need for dialysis. PAST MEDICAL AND SURGICAL HISTORY: 1. Significant for end-stage renal disease currently on maintenance hemodialysis three times a week on Thursday, Thursday, and Thursday schedule. 2. CML. 3. History of atrial fibrillation. 4. Chronic hypotension. 5. History of COPD. 6. History of DVT. 7. History of squamous cell carcinoma. 8. Gout. 9. Vitamin D deficiency. Past surgical history is significant for a Perma-Cath placement. MEDICATIONS: Her home medications include: - allopurinol 200 mg daily - Eliquis 2.5 mg twice a day - vitamin D 2000 units daily - calcitriol 0.25 mcg daily - Prolia 60 mg every 6 months - levothyroxine 75 mcg daily - midodrine 10 mg three times a day - pantoprazole 40 mg daily - Anoro Ellipta inhaler once a day ALLERGIES: She has allergy to FOSAMAX and ENALAPRIL. PERSONAL AND SOCIAL HISTORY: The patient is a former smoker who denies any alcohol or drug use. FAMILY HISTORY: Is noncontributory for this admission. REVIEW OF SYSTEMS: The patient is slightly confused and not able to provide much reliable information. She was dialyzed on Thursday. We have been unable to remove fluid due to chronic hypotension. The patient denies any fever or chills. She has no history of recent fall. Ears, nose, and throat are unremarkable. Cardiovascular system is significant for chronic hypotension and leg edema. She denies any chest pain. Respiratory system negative for cough or hemoptysis. Gastrointestinal (GI) system is negative for vomiting or diarrhea. Her appetite is poor. Genitourinary () system is significant for minimal urine output. She denies any dysuria or hematuria. Endocrine system is significant for hypothyroidism and secondary hyperparathyroidism. She has no history of diabetes. Hematological system is significant for chronic myeloid leukemia. Psychosocial system is negative for depression or anxiety. Neurological system is negative for seizures or stroke. Musculoskeletal system significant for generalized weakness and lower extremity edema. PHYSICAL EXAMINATION: Elderly lady laying in the bed without any acute distress. She is currently on Levophed drip. Temperature is 97 degrees Fahrenheit, heart rate 94 per minute and respiratory rate 20 per minute. Blood pressure 82/49 mmHg and oxygen saturation 97%. Head is atraumatic. Neck: Supple and jugular venous distention (JVD) is elevated. There is no oral thrush or ulcers. Heart sounds are irregular in rhythm and somewhat tachycardiac. Lungs with diminished breath sounds at bases. Abdomen: Soft and nontender and bowel sounds are normal. Extremities: Without any cyanosis or clubbing. Right arm edema is noticed. Bilateral lower extremity edema is 3+. There is minimal swelling of the left arm. Neurologically, she is awake, somewhat confused and without a focal neurological deficit. LABORATORY DATA: WBC count 19.3, hemoglobin 9.2, and hematocrit 29.8. Platelets 128. Sodium 139, potassium 3.3, CO2 25, BUN 36, and creatinine 3.03. Calcium level 7.3 and magnesium 1.6. Chest x-ray done this morning showed possible atelectasis or left perihilar and left lower lobe opacity. She has a left-sided subclavian catheter with tip in the superior vena cava (SVC). PROBLEMS: 1. Right arm deep venous thrombosis. The patient is being treated with IV heparin drip. She was on Eliquis with 2.5 mg twice a day dose due to her end-stage renal disease. She will now either require coumadin or increased dose of Eliquis. At this time, her heparin drip is on hold due to elevated partial thromboplastin time (PTT). 2. Hypotension. She has chronic hypotension, which has worsened, and I am concerned about possibility of infection. Blood cultures have been drawn and are pending. A urine culture is also pending along with a urinalysis. I would recommend covering her with broad-spectrum antibiotics and one dose of vancomycin 1 gram is being given. We will also put her on meropenem 500 mg every 24 hours. Her stool has been tested negative for Clostridium (C) difficile. 3. End-stage renal disease. The patient was dialyzed on Thursday. She will be dialysis for tomorrow and I do not feel that at this point there is any emergent need for dialysis today. She is hypotensive on Levophed and not likely to tolerate dialysis or fluid removal very well. We will wait and see how she does over next 24 hours. 4. Hypokalemia. Her potassium level is slightly low and she has already been given one dose of potassium chloride and I will give one more dose of potassium chloride 20 mEq this afternoon. 5. Hypomagnesemia. We will give her 1 gram of magnesium sulfate intravenously in view of her tachycardia and small run of ventricular tachycardia. We will try to optimize her electrolytes. 6. Anemia. Her anemia is stable at this point and no urgent intervention is indicated. 7. Chronic myeloid leukemia. This is chronic and leukocytosis is related to her CML. We will continue to watch her closely. Thank you for involving me in the care of Mrs. Dickerson. I will follow her along with you. MARGAUX
[2020-04-09] MEDS: NOREPINEPHRINE BITARTRATE 16 MG in D5W 484 ML IV SCH (15:02)
[2020-04-09] MEDS ORDERED: VANCOMYCIN HCL 750 MG, VIAL MATE ADAPTER 1 EACH in D5W 250 ML IV SCH (16:00)
[2020-04-09] MEDS: **VANCO AFTER HD** MISC XX SCH (16:44)
[2020-04-09] MEDS ORDERED: VANCOMYCIN HCL 500 MG in D5W MINI-BAG PLUS 100 ML IV SCH (17:00)
[2020-04-09] MEDS: MEROPENEM INJ 500 MG in IV 1 EA IV SCH (19:41)
--- NOTE | 2020-04-09 20:23 | ECGEPIP ---
[facility] [place] Test Date: 2020-04-08 Pat Name: LAWRENCE RICARDO Department: Room: [place] [address] Gender: Female Measurement Advisor: : [id number] Requested By: ABDIRIZAK FREEMAN Order Number: [id number] Reading MD: Joleen Cam Measurements Intervals [place] Rate: 131 P: AR: 0 QRS: 2 QRSD: 82 T: 211 QT: 313 QTc: 464 Interpretive Statements ATRIAL FIBRILLATION WITH RAPID VENTRICULAR RESPONSE AND PVC'S VS ABERRANT CONDUCTION LOW QRS VOLTAGE POSSIBLE ANTERIOR MYOCARDIAL INFARCTION, OF INDETERMINATE AGE COMPARED TO 02/20/20 HR IS FASTER AND PVC'S ARE NEW Electronically Signed on 04-09-2020 20:23:22 EDT by Joleen Cam
[2020-04-10] VITALS (92 sets, daily range): BP systolic 59–118; BP diastolic 42–73
[2020-04-10] MEDS: ACETAMINOPHEN TAB 650MG DOSE (2X325MG) PO PRN ×2 (05:07→17:44)
[2020-04-10] MEDS: HEPARIN DRIP 25,000 UNITS in IV 1 EA IV SCH (05:11)
[2020-04-10 05:38] LABS: HEMATOCRIT 26.8 % (36.0-47.0); HEMOGLOBIN 8.4 g/dl (12.0-15.5); MEAN CORPUSCULAR HEMOGLOBIN 28.8 pg (27.0-33.0); MEAN CORPUSCULAR HGB CONC 31.3 g/dl (32.0-36.5); MEAN CORPUSCULAR VOLUME 91.8 fl (80.0-96.0); PLATELET COUNT, AUTOMATED 119 10^3/uL (150-450); RED BLOOD COUNT 2.92 10^6/uL (4.00-5.40); WHITE BLOOD COUNT 24.8 10^3/uL (4.0-10.0)
[2020-04-10 06:17] LABS: ALBUMIN 1.7 GM/DL (3.2-5.2); BILIRUBIN,TOTAL 0.5 MG/DL (0.2-1.0); CALCIUM LEVEL 7.6 MG/DL (8.8-10.2); CREATININE FOR GFR 2.41 MG/DL (0.55-1.30); GLOMERULAR FILTRATION RATE 20.3 (>32); PHOSPHORUS LEVEL 3.6 MG/DL (2.5-4.9); TOTAL PROTEIN 4.1 GM/DL (6.4-8.2)
[2020-04-10] MEDS: LEVOTHYROXINE 75MCG TABLET (0.075MG) PO SCH (06:17)
[2020-04-10 06:18] LABS: ATYPICAL LYMPH 1 % (0-5); BASOPHILS 5 % (0-1); BLAST CELLS 2 % (0-0); LYMPHOCYTES 30 % (16-44); METAMYELOCYTES 4 % (0-0); MONOCYTES 4 % (0-5); NEUTROPHILS 52 % (28-66)
[2020-04-10 06:20] LABS: ANISOCYTOSIS 3+; HYPOCHROMASIA 1+; PLATELET ESTIMATE DECREASED (NORMAL); POLYCHROMASIA 1+
[2020-04-10 06:21] LABS: POIKILOCYTOSIS 1+
[2020-04-10] MEDS: CALCITRIOL 0.25 MCG CAP (S0169) PO SCH (08:41)
[2020-04-10] MEDS: MIDODRINE 5 MG TAB PO SCH ×3 (08:41→15:33)
[2020-04-10] MEDS: allopurinoL 100 MG TAB PO SCH (08:42)
[2020-04-10] MEDS: PANTOPRAZOLE 40MG TAB (PROTONIX) PO SCH (08:42)
--- NOTE | 2020-04-10 09:45 | IPN ---
DATE: 04/09/2020 Ms. Dickerson is seen this morning in the intensive care unit on her bedside. She remains on Levophed, however, it has been titrated down to 6 mcg, while yesterday she was on 11 mcg. She is much more alert and able to answer questions. Nursing staff reports that she did eat her breakfast and was feeling hungry. She was started on intravenous antibiotics yesterday for possible sepsis. Blood cultures are still pending. Her stool did test negative for Clostridium difficile. She also remains on IV heparin drip for delirium tremens (DVT) in her right upper extremity. On physical examination, temperature is 97 degrees Fahrenheit, heart rate about 100 per minute and respiratory rate 18 per minute. Blood pressure 94/53 mmHg and oxygen saturation 98% on room air. Head is atraumatic. Neck is supple and jugular venous distention (JVD) is elevated. Dialysis catheter on right upper chest is present. Heart sounds are tachycardiac and irregular. Lungs have slightly diminished breath sounds at bases. Abdomen: Soft and nontender. Ascites is present. Extremities have no cyanosis or clubbing. Right upper and bilateral lower extremity edema is present. Neurologically, she is awake, alert and at her baseline mentation. Today's labs show WBC count up to 32,000, hemoglobin 9.1 and hematocrit 28.5. Platelets 156. Random vancomycin level this morning is 10.1. Sodium is 136, potassium 4.8, CO2 23, BUN 48 and creatinine 3.5. PROBLEMS: 1. End-stage renal disease. The patient is regularly dialyzed on Thursday, Thursday and Thursday schedule. She did have dialysis on Thursday and we will plan to dialyze her today. We will perform dialysis on her bedside in intensive care unit. 2. Generalized edema and volume overload. This is a chronic issue and related to low blood pressure and low serum albumin level. She is still on Levophed and we are going to try to remove about 1.5 liters fluid as tolerated. It remains to be seen how she does. I have advised the nursing staff not to titrate Levophed anymore until she gets done with dialysis. 3. Sepsis. I am concerned about possibility of sepsis due to persistent hypotension. Blood and urine cultures are pending. She is already on vancomycin and meropenem, will continue with the same. She will receive vancomycin 1 gram after dialysis and pharmacy is going to monitor. 4. DVT. The patient developed DVT while she was still on low-dose Eliquis. 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 5. Leukocytosis. She has known history of chronic myelogenous leukemia (CML). She is probably now septic which is causing an increase in her leukocytosis. Continue with antibiotics and monitoring of CBC on a daily basis. 6. Anemia. Anemia is stable and does not need any urgent intervention. I will hold off on Aranesp at this point as she has received long-acting BOB in the outpatient clinic.
[2020-04-10 10:03] LABS: VANCOMYCIN RANDOM 21.3 UG/ML
[2020-04-10] MEDS ORDERED: VANCOMYCIN HCL 1,000 MG, VIAL MATE ADAPTER 1 EACH in D5W 250 ML IV SCH (10:15)
--- NOTE | 2020-04-10 11:45 | REP ---
Clinical: Sepsis. Technique: Axial noncontrast images from the thoracic inlet to the upper abdomen with coronal and sagittal re-formations. Comparison: 02/22/2020 Findings: Moderate left and small right pleural effusions are identified with associated posterior basilar atelectasis (left greater than right). Underlying chronic interstitial and emphysematous changes are noted. Mediastinum demonstrates atherosclerotic changes to the thoracic aorta and coronary arteries without aortic aneurysm or cardiomegaly. No pericardial effusion. Surrounding musculoskeletal structures demonstrate age-related degenerative changes without acute osseous abnormality. Impression: Pleural effusions and bibasilar atelectasis (left greater than right). Findings are essentially unchanged as compared to 02/22/2020. Electronically Signed by Matthew Patel MD 04/10/2020 11:36 A
--- NOTE | 2020-04-10 11:49 | REP ---
Clinical: Sepsis. Technique: Axial noncontrast images from the lung bases to the pubic symphysis with coronal and sagittal re-formations. Comparison: 02/22/2020. Findings: Moderate/marked ascites along with evidence for cirrhosis and portal hypertension including splenomegaly again noted and essentially unchanged. Prior cholecystectomy noted. Pancreas and bilateral adrenal glands are normal / stable. Kidneys demonstrate age-related atrophic changes and stable rounded lesions likely representing simple and complex cysts. The enteric system is without obstruction or obvious acute inflammatory process. Colonic diverticulosis noted. Pelvis demonstrates normal bladder and calcified myomatous changes to the uterus. Moderate subcutaneous edema consistent with anasarca and the given history of cirrhosis. Atherosclerotic changes of the aorta and vasculature noted without aneurysm. Skeletal structures demonstrate degenerative changes. Impression: 1. Findings described above consistent with cirrhosis and portal hypertension including ascites, splenomegaly, and generalized subcutaneous edema. 2. Further chronic stable changes as above. Electronically Signed by Matthew Patel MD 04/10/2020 11:41 A
[2020-04-10] MEDS: **VANCO AFTER HD** MISC XX SCH (15:28)
[2020-04-10] MEDS: NOREPINEPHRINE BITARTRATE 16 MG in D5W 484 ML IV SCH (15:34)
--- NOTE | 2020-04-10 17:34 | IPN ---
DATE: 04/10/2020 Mrs. Dickerson is seen this morning on her bedside in intensive care unit. Yesterday we dialyzed her and had great difficulty with removing any fluid. She required significantly higher dose of Levophed due to worsening hypotension during dialysis, and we were able to remove only less than 1 liter. She still has significant lower extremity edema. She is very weak and still hypotensive and on Levophed. She has no fever or chills at this time. Her blood cultures and urine culture have been negative so far. PHYSICAL EXAMINATION: Temperature 96.8 degrees Fahrenheit, heart rate 100 per minute and respiratory rate 18 per minute. Blood pressure is about 100/55 mmHg and oxygen saturation is 98% on room air. Her head is atraumatic. Slight rash on her right cheek is related to use of mask. Her neck is supple and jugular venous distention (JVD) is slightly elevated. She has no oral thrush or ulcers. Heart sounds are tachycardiac and irregular. Lungs with diminished breath sounds at bases. Abdomen: Soft, protuberant and ascites is present. Extremities: Without any cyanosis or clubbing. Right arm edema and bilateral lower extremity edema is essentially unchanged. She has small area of discoloration on the back of her right leg. Neurologically she is awake, alert and at her baseline mentation. Today's labs show WBC count 24.8, hemoglobin 8.4 and hematocrit 26.8. Platelets 119. Sodium 138, potassium 4.0, CO2 of 26, BUN 30 and creatinine 2.41. Glucose 99 and calcium 7.6. PROBLEMS: 1. End-stage renal disease. The patient did have dialysis yesterday. We had to stop dialysis about 25 minutes earlier due to worsening hypotension. We will plan to dialyze her again tomorrow. 2. Generalized edema and anasarca. We tried to remove fluid with dialysis yesterday. However, it was unsuccessful due to worsening hypotension and requiring higher dose of pressors. 3. Persistent hypotension. This is a chronic issue but now getting worse. She has been on midodrine and also Levophed. Blood and urine cultures have been negative so far. I am going to order a CT scan of abdomen and pelvis and the chest today to look for any possible cause of infection. 4. Anemia. No significant change in her anemia and we will continue to monitor. No urgent need for transfusion. 5. Leukocytosis and history of chronic myeloid leukemia (CML). She has known history of chronic leukemia and leukocytosis is essentially chronic but worsened now during this hospitalization. We will continue to monitor. 6. Deep vein thrombosis (DVT). She is being treated with anticoagulation and IV heparin drip.
[2020-04-10] MEDS: MEROPENEM INJ 500 MG in IV 1 EA IV SCH (17:44)
--- NOTE | 2020-04-10 19:17 | IPNPDOC ---
Subjective Date Seen The patient was seen on 04/10/20. Subjective Chief Complaint/HPI The patient is awake and alert this morning, she is quite pleasant. The only complaints she has is that of heel pain right now General: Reports: Malaise; Denies: Chills, Night Sweats, Fatigue, Normal Appetite Pulmonary: Denies: Dyspnea, Cough Cardiovascular: Reports: Edema; Denies: Chest Pain, Palpitations Gastrointestinal: Denies: Nausea, Vomiting, Abdominal Pain Psych: Reports: Mood Normal Objective Physical Examination General Exam: Positive: Alert, Cooperative Neck Exam: Positive: Supple, JVD Chest Exam: Positive: Rales (minimal on the bases) Heart Exam: Positive: Irregular Rhythm Telemetry: Positive: Atrial fibrillation Abdomen Exam: Positive: BS Hypoactive Extremity Exam: Positive: Edema (+3 nonpitting edema of LE), Swelling (significant swelling of upper and lower extremities) Skin Exam: Positive: Other skin issue (skin changes consistent with venous stasis) Psych Exam: Positive: Mental status NL Assessment /Plan Problems (1) Sepsis Status: Acute Problem Text: Patient will most likely is sepsis of unknown etiology Blood cultures after 24 hours are negative after 48 hrs UA is negative Chest x-ray did not show any infiltrate, just atelectasis Patient was started on Vanco (started 04/10/20) and Merrem (started 04/09/20) empirically Continues to require vasopressors for blood pressure control CT abd/pelvis ordered today by Nephrology in search of etiology for sepsis (2) DVT of axillary vein, acute right Status: Acute Problem Text: Patient developed DVT on Eliquis Patient is currently on heparin which can be switched to by mouth Coumadin before discharge as patient developed DVT on eliquis. (3) Volume overload Status: Acute Problem Text: Her blood pressure does not allow for very aggressive dialysis/fluid removal. Dialysis as per recommendations from nephrology. (4) ESRD on dialysis Status: Chronic Problem Text: End-stage renal disease on hemodialysis Nephrology consult appreciated (5) Atrial fibrillation Status: Chronic Problem Text: Continue anticoagulation with heparin We will hold beta blockers due to hypotension Telemetry monitoring Plan/VTE VTE Prophylaxis Ordered?: Yes VS, I&O, 24H, Fishbone Vital Signs/I&O Vital Signs Date Time Temp Pulse Resp B/P (MAP) Pulse Ox O2 Delivery O2 Flow Rate FiO2 04/10/20 18:30 94 18 92/51 (65) Room Air 04/10/20 16:30 97 04/10/20 16:00 96.8 I&O- Last 24 Hours up to 6 AM 04/10/20 06:00 Intake Total 1540.2 ml Output Total 713 ml Balance 827.2 ml Laboratory Data 24H LABS Laboratory Tests 2 04/10/20 05:15: Immature Granulocyte % (Auto) , Neutrophils (%) (Auto) , Nucleated Red Blood Cells % (auto) 7.9H, Neutrophils 52, Band Neutrophils 2, Lymphocytes (Manual) 30, Monocytes (Manual) 4, Basophils (Manual) 5H, Metamyelocytes 4H, Blastocytes 2H, Atypical Lymphocytes 1, Polychromasia 1+, Hypochromasia 1+, Poikilocytosis 1+, Basophilic Stippling 1+, Anisocytosis 3+, Schistocytes , Platelet Estimate DECREASED, Activated Partial Thromboplast Time 134.3*H, Anion Gap 9, Glomerular Filtration Rate 20.3L, Calcium Level 7.6L, Phosphorus Level 3.6, Total Bilirubin 0.5, Aspartate Amino Transf (AST/SGOT) 15, Alanine Aminotransferase (ALT/SGPT) 12, Alkaline Phosphatase 166H, Total Protein 4.1L, Albumin 1.7L, Albumin/Globulin Ratio 0.7L, Random Vancomycin Level 21.3 04/10/20 06:51: Activated Partial Thromboplast Time 65.5H 04/10/20 12:57: Activated Partial Thromboplast Time 111.7H CBC/BMP Laboratory Tests 04/10/20 05:15 Microbiology Microbiology 04/08/20 Urine Culture - Final, Complete 04/08/20 Stool Occult Blood (TAMIE) - Final, Complete 04/08/20 Blood Culture - Preliminary, Resulted No Growth after 48 hours. All Specime... SAMIR HUGGINS DO Apr 10, 2020 19:17
[2020-04-11] VITALS (92 sets, daily range): BP systolic 72–138; BP diastolic 43–82
[2020-04-11 05:09] LABS: HEMATOCRIT 26.6 % (36.0-47.0); HEMOGLOBIN 8.3 g/dl (12.0-15.5); MEAN CORPUSCULAR HEMOGLOBIN 28.1 pg (27.0-33.0); MEAN CORPUSCULAR HGB CONC 31.2 g/dl (32.0-36.5); MEAN CORPUSCULAR VOLUME 90.2 fl (80.0-96.0); PLATELET COUNT, AUTOMATED 118 10^3/uL (150-450); RED BLOOD COUNT 2.95 10^6/uL (4.00-5.40); WHITE BLOOD COUNT 26.1 10^3/uL (4.0-10.0)
[2020-04-11 05:34] LABS: ALBUMIN 1.6 GM/DL (3.2-5.2); BILIRUBIN,TOTAL 0.5 MG/DL (0.2-1.0); CALCIUM LEVEL 7.4 MG/DL (8.8-10.2); CREATININE FOR GFR 3.25 MG/DL (0.55-1.30); GLOMERULAR FILTRATION RATE 14.4 (>32); MAGNESIUM LEVEL 1.7 MG/DL (1.8-2.4); PHOSPHORUS LEVEL 4.5 MG/DL (2.5-4.9); POTASSIUM SERUM 4.3 MEQ/L (3.5-5.1); TOTAL PROTEIN 4.3 GM/DL (6.4-8.2)
[2020-04-11] MEDS: LEVOTHYROXINE 75MCG TABLET (0.075MG) PO SCH (05:40)
[2020-04-11] MEDS: allopurinoL 100 MG TAB PO SCH (05:40)
[2020-04-11] MEDS: MIDODRINE 5 MG TAB PO SCH ×3 (05:40→16:17)
[2020-04-11] MEDS: CALCITRIOL 0.25 MCG CAP (S0169) PO SCH (05:41)
[2020-04-11] MEDS: PANTOPRAZOLE 40MG TAB (PROTONIX) PO SCH (05:41)
[2020-04-11 08:37] LABS: VANCOMYCIN RANDOM 18.5 UG/ML
[2020-04-11] MEDS ORDERED: VANCOMYCIN HCL 500 MG in D5W MINI-BAG PLUS 100 ML IV SCH (09:00)
[2020-04-11] MEDS ORDERED: VANCOMYCIN HCL 750 MG, VIAL MATE ADAPTER 1 EACH in D5W 250 ML IV SCH (09:00)
--- NOTE | 2020-04-11 12:19 | RO ---
DATE OF PROCEDURE: 04/08/2020 PREOPERATIVE DIAGNOSIS: Hypotension. POSTOPERATIVE DIAGNOSIS: Hypotension. PROCEDURE PERFORMED: Left subclavian central venous pressure (CVP) placement. SURGEON: Dr. Jeffry Mensah. ANESTHESIA: DESCRIPTION OF PROCEDURE: The patient was seen in the intensive care unit critically ill, hypotensive. The procedure was reviewed with the patient including risks and possible benefits. Risks including bleeding, infection, medication reaction and lung collapse and informed consent conversation was had and documented. The patient was placed in supine position. The skin overlying the left subclavian vein was prepped with Chloraprep draped in a sterile fashion. A 25-gauge needle was used to raise a skin wheal of 1% lidocaine. Thereafter, a 17-gauge introducer needle was placed in through the skin and the left subclavian vein. Free return of venous blood was obtained a vascular tip guidewire was advanced and a triple-lumen catheter was passed over the guidewire to a distance of 20 cm. The wire was removed. Catheter was flushed and sewn in place a sterile dressing was applied and a post procedural chest x-ray has been ordered. The patient tolerated the procedure well, suffered no apparent complication and is in unchanged condition in the intensive care unit.
--- NOTE | 2020-04-11 15:23 | IPN ---
DATE OF VISIT: 04/11/2020 Mrs. Dickerson is seen this morning on her bedside. She remains on Levophed and currently on 4 mcg/kg dose. Her blood pressure is in 70s. Generalized edema and abdominal distension with ascites remain unchanged. The patient is also on IV heparin drip for her deep venous thrombosis (DVT). On physical exam, temperature 97.2 degrees Fahrenheit, heart rate about 100 per minute and respiratory rate 16 per minute. Blood pressure 77/43 mmHg and oxygen saturation is 98%. There is mild facial edema and some ecchymosis on her right cheek from the mask but it has not changed since admission. Heart sounds are tachycardiac. Lungs have diminished breath sounds at dependent parts. Abdomen is distended and nontender. Bowel sounds are present. Extremities have no cyanosis or clubbing. Right arm edema is slightly improved. Bilateral lower extremity edema is significant particularly on her left lower extremity. Neurologically, she is awake, alert and oriented times three. Today's labs show WBC count 26.1, hemoglobin 8.3 and hematocrit 26.6. Platelets 118. Sodium 133, potassium 4.3, CO2 26, BUN 44 and creatinine 3.25. Glucose 101 and calcium 7.4. PROBLEMS: 1. End-stage renal disease. The patient was dialyzed on Thursday with great difficulty due to worsening hypotension. Her electrolytes are stable at this point and she is oxygenating well. We could not remove much fluid despite significant up titration on her Levophed dose on Thursday. Today, her blood pressure is even lower and I am not sure if she cannot tolerate dialysis. We are going to wait till tomorrow. There is no emergent need for dialysis today. 2. Hypotension. She has chronic hypotension but seems to be much worse and has been on Levophed. Blood and urine cultures have been negative and no obvious cause of her persistent hypotension identified. I have discussed with the hospitalist service and have suggested to get a serum cortisol level to assess her adrenal gland. She will also get an echocardiogram. We can consider doing a paracentesis to rule out any infection. Her options are very limited and prognosis remains guarded. 3. Anemia. Her anemia has been stable and does not need any urgent intervention. 4. Leukemia. She has chronic leukemia, which is essentially unchanged at this point. She is not in any condition to even consider any chemotherapy. 5. DVT. The patient remains on IV heparin drip.
[2020-04-11] MEDS: NOREPINEPHRINE BITARTRATE 16 MG in D5W 484 ML IV SCH (15:41)
[2020-04-11] MEDS: **VANCO AFTER HD** MISC XX SCH (16:00)
[2020-04-11] MEDS: MEROPENEM INJ 500 MG in IV 1 EA IV SCH (17:23)
--- NOTE | 2020-04-11 18:14 | IPNPDOC ---
Subjective Date Seen The patient was seen on 04/11/20. Subjective Chief Complaint/HPI Patient seen and evaluated this morning at the bedside. She is awake and oriented. She is quite pleasant to interact with. Her only complaint at this time is that she will often have a pain in the back of her legs whenever she moves them, but otherwise she does not voice any other additional concerns. General: Reports: Fatigue, Malaise; Denies: Chills, Night Sweats, Normal Appetite Pulmonary: Denies: Dyspnea, Cough, Pleuritic Chest Pain Cardiovascular: Reports: Edema; Denies: Palpitations Gastrointestinal: Denies: Nausea, Vomiting, Abdominal Pain Psych: Reports: Mood Normal Objective Physical Examination General Exam: Positive: Alert, Cooperative Neck Exam: Positive: Supple, JVD Chest Exam: Positive: Rales (minimal on the bases); Negative: Rhonchi Heart Exam: Positive: Irregular Rhythm Telemetry: Positive: Atrial fibrillation Abdomen Exam: Positive: BS Hypoactive, Other (ascites) Extremity Exam: Positive: Edema (+3 nonpitting edema of LE), Swelling (significant swelling of upper and lower extremities) Skin Exam: Positive: Other skin issue (skin changes consistent with venous stasis) Psych Exam: Positive: Mental status NL, Mood NL Assessment /Plan Problems (1) Sepsis Status: Acute Problem Text: Patient will most likely is sepsis of unknown etiology Blood cultures after 24 hours are negative after 48 hrs UA is negative Chest x-ray did not show any infiltrate, just atelectasis CT of the abdomen and pelvis does show ascites, but no clear evidence of a source for infection Patient was started on Vanco (started 04/10/20) and Merrem (started 04/09/20) empirically Continues to require vasopressors for blood pressure control (2) DVT of axillary vein, acute right Status: Acute Problem Text: Patient developed DVT on Eliquis Patient is currently on heparin which can be switched to by mouth Coumadin before discharge as patient developed DVT on eliquis. (3) Volume overload Status: Acute Problem Text: Her blood pressure does not allow for very aggressive peewee lysis/fluid removal. Dialysis as per recommendations from nephrology. (4) ESRD on dialysis Status: Chronic Problem Text: End-stage renal disease on hemodialysis Nephrology consult appreciated (5) Atrial fibrillation Status: Chronic Problem Text: Continue anticoagulation with heparin We will hold beta blockers due to hypotension Telemetry monitoring Plan/VTE VTE Prophylaxis Ordered?: Yes Plan The patient's status continues to remain critical. She continues to require vasopressors for blood pressure support, and was unable to tolerate a full session of dialysis previously. After having a conversation with nephrology, it was suggested that perhaps a paracentesis could be performed to look for an etiology of her sepsis/septic shock, however after discussing the case with interventional radiology, and given that she is on a levophed drip and heparin drip, it is unsafe to perform a paracentesis at this time. Another possibility discussed was that she may be an adrenal crisis, therefore an a.m. serum cortisol is ordered Repeat echocardiogram is also ordered to further investigate/rule out if cardiogenic shock is playing a role. VS, I&O, 24H, Fishbone Vital Signs/I&O Vital Signs Date Time Temp Pulse Resp B/P (MAP) Pulse Ox O2 Delivery O2 Flow Rate FiO2 04/11/20 16:30 106 91/53 (66) 04/11/20 16:00 97.2 18 93 Room Air I&O- Last 24 Hours up to 6 AM 04/11/20 06:00 Intake Total 1069.9 ml Output Total 0 ml Balance 1069.9 ml Laboratory Data 24H LABS Laboratory Tests 2 04/10/20 19:26: Activated Partial Thromboplast Time 78.8H 04/11/20 01:22: Activated Partial Thromboplast Time 83.8H 04/11/20 04:52: Nucleated Red Blood Cells % (auto) 7.9H, Anion Gap 7L, Glomerular Filtration Rate 14.4L, Calcium Level 7.4L, Phosphorus Level 4.5#, Magnesium Level 1.7L, Total Bilirubin 0.5, Aspartate Amino Transf (AST/SGOT) 13, Alanine Aminotransferase (ALT/SGPT) 9L, Alkaline Phosphatase 147H, Total Protein 4.3L, Albumin 1.6L, Albumin/Globulin Ratio 0.6L, Random Vancomycin Level 18.5 CBC/BMP Laboratory Tests 04/11/20 04:52 Microbiology Microbiology 04/11/20 Stool Occult Blood (TAMIE) - Final, Complete 04/08/20 Urine Culture - Final, Complete 04/08/20 Stool Occult Blood (TAMIE) - Final, Complete 04/08/20 Blood Culture - Preliminary, Resulted No Growth after 72 hours. All specime... SAMIR HUGGINS DO Apr 11, 2020 18:14
[2020-04-11] MEDS: HEPARIN DRIP 25,000 UNITS in IV 1 EA IV SCH (18:32)
[2020-04-12] VITALS (86 sets, daily range): BP systolic 67–135; BP diastolic 41–76
[2020-04-12 05:36] LABS: HEMATOCRIT 24.9 % (36.0-47.0); MEAN CORPUSCULAR HEMOGLOBIN 29.2 pg (27.0-33.0); MEAN CORPUSCULAR HGB CONC 32.1 g/dl (32.0-36.5); MEAN CORPUSCULAR VOLUME 90.9 fl (80.0-96.0); PLATELET COUNT, AUTOMATED 117 10^3/uL (150-450); RED BLOOD COUNT 2.74 10^6/uL (4.00-5.40); WHITE BLOOD COUNT 24.3 10^3/uL (4.0-10.0)
[2020-04-12 05:57] LABS: ALBUMIN 1.7 GM/DL (3.2-5.2); CALCIUM LEVEL 7.9 MG/DL (8.8-10.2); CREATININE FOR GFR 3.71 MG/DL (0.55-1.30); GLOMERULAR FILTRATION RATE 12.3 (>32); PHOSPHORUS LEVEL 5.2 MG/DL (2.5-4.9); POTASSIUM SERUM 4.5 MEQ/L (3.5-5.1); VANCOMYCIN RANDOM 15.5 UG/ML
[2020-04-12] MEDS: LEVOTHYROXINE 75MCG TABLET (0.075MG) PO SCH (06:24)
[2020-04-12] MEDS: CALCITRIOL 0.25 MCG CAP (S0169) PO SCH (08:04)
[2020-04-12] MEDS: PANTOPRAZOLE 40MG TAB (PROTONIX) PO SCH (08:04)
[2020-04-12] MEDS: allopurinoL 100 MG TAB PO SCH (08:04)
[2020-04-12] MEDS: MIDODRINE 5 MG TAB PO SCH ×3 (08:04→15:31)
--- NOTE | 2020-04-12 10:32 | ECHO ---
DATE OF PROCEDURE: 04/11/2020 AGE: 84. GENDER: Female. Height 66 inches, weight 156 pounds, body surface area 1.81 sq m. Inpatient, intensive care unit (ICU), room 3204. REFERRING PHYSICIAN: Dr. Ed Gomez INDICATION: Edema. MEASUREMENTS: 2D measurements: RV - 3.7 cm LV - 3.2 cm Septum 1.2 cm Posterior wall 1.2 cm Aortic root 3.0 cm LA - 4.0 cm LVEF 70% Doppler measurements: AV - 1.39 m/s LVOT - 0.9 m/s LVOT diameter 1.8 cm MV - E 73 Early mitral deceleration time 172 ms E prime medial 10.8 E prime lateral 14.6 Average E/E prime ratio 5.7/PCWP - 9 mmHg PV - unable to obtain RVSP 30 mmHg IVC - 1.0 cm COMMENTS: Underlying atrial fibrillation with somewhat rapid ventricular response averaging 110-120 beats per minute (BPM). No intraventricular conduction disturbance. Somewhat technically challenging study in light of the patient's body habitus, but diagnostic useful information was still obtained. M-mode and two-dimensional echocardiography was performed with pulsed, continuous wave, color flow, and tissue Doppler studies. Borderline concentric left ventricular hypertrophy with normal wall motion. Borderline left atrial enlargement with current estimated mean left atrial pressure within normal limits. Normal right ventricular size and wall motion with estimated pulmonary arterial pressure currently upper limits of normal to borderline increased. Slightly dilated right atrium but actually small inferior vena cava with complete collapse against an elevated central venous pressure. Normal aortic dimensions. Mild aortic valvular sclerosis without stenosis or insufficiency. Normal-appearing mitral valve and function. No mitral regurgitation. Normal-appearing tricuspid valve with very mild insufficiency. No apparent intracardiac mass or pericardial effusion. MTDD
[2020-04-12 11:13] LABS: CORTISOL AM 16.7 UG/DL (4.3-22.4)
[2020-04-12] MEDS: ONDANSETRON 4MG/2ML VIAL IV PRN ×2 (11:46→15:55)
[2020-04-12] MEDS: NOREPINEPHRINE BITARTRATE 16 MG in D5W 484 ML IV SCH (15:31)
--- NOTE | 2020-04-12 15:36 | IPN ---
DATE: 04/12/2020 Mrs. Dickerson is seen this morning on her bedside in intensive care unit. She remains hypotensive and still on low-dose Levophed. She has generalized anasarca and we have been unable to remove much fluid due to persistent hypotension. She was last dialyzed on Thursday and we will plan to dialyze her again today. So far all her blood and urine cultures have been negative. PHYSICAL EXAM: She is awake and able to answer questions appropriately. Her temperature is 97.5 degrees Fahrenheit, heart rate about 109 per minute and respiratory rate 18 per minute. Blood pressure 88/53 mmHg on 1 mcg off Levophed. She has generalized anasarca. Head: Head is atraumatic. Neck is supple and jugular venous distention (JVD) is mildly elevated. Hemodialysis catheter on right upper chest and central line on the left side of her chest is present. Heart sounds are tachycardiac. Lungs with diminished breath sounds at bases. Abdomen is distended with ascites and nontender. Bowel sounds are present. Extremities: Without any cyanosis or clubbing. Generalized edema on all limbs is present. Neurologically she is awake and without a focal deficit. Today's labs show WBC count 24.3, hemoglobin 8.0 and hematocrit 24.9. Platelets 117. A vancomycin level this morning is 15.5. Sodium 133, potassium 4.5, CO2 24, BUN 56 and creatinine 3.71. Calcium 7.9 and phosphorus 5.2. Albumin is 1.7. Her a.m. cortisol is 16.7. She had an echocardiogram done a couple of days ago and report has just come back. She has underlying atrial fibrillation with heart rate of about 110-120 beats per minute. She has borderline left ventricular hypertrophy (LVH) and borderline left atrial enlargement. Normal right ventricle size and wall motion with estimated pulmonary arterial pressure upper limits of normal to slightly increased. Small inferior vena cava was not distended and was in fact somewhat collapsed. Mild aortic valve sclerosis and normal-appearing mitral valve and function was noted. No intracardiac mass or pericardial effusion noted. PROBLEM: 1. End-stage renal disease: The patient has been on dialysis for last couple of months. However, it has not worked very well. She has chronic and persistent severe hypotension which makes dialysis very difficult particularly we are unable to remove any fluid. We will plan to dialyze her again this afternoon. 2. Hypotension: Her low blood pressure persists and currently she is on minimal dose of Levophed. I have advised the nursing staff to maintain her Levophed for now as she is likely to require higher dose during dialysis. All her cultures have been negative so far. Her echocardiogram also did not explain any reason for her severe hypotension. 3. Cirrhosis of liver with ascites: She does have ascites. However paracentesis could not be done due to her anticoagulation and hypotension. 4. Leukocytosis: Possibly related to leukemia and infection is certainly in the differential. She remains on antibiotics with meropenem and vancomycin. Cultures have been negative so far. 5. Anemia: Her anemia is stable and does not need any urgent intervention. She does have slight fluctuations but no definite trend. Her stool was tested negative for occult blood. DISPOSITION: She is DO NOT RESUSCITATE and DO NOT INTUBATE. I have explained to the patient that her condition is quite serious as her severe hypotension persists and she is not tolerating fluid removal and dialysis well. We will discuss with her further about possible consultation for comfort measures and stopping dialysis if dialysis failed to remove any fluid today. Her long-term prognosis remains quite poor.
--- NOTE | 2020-04-12 16:03 | IPNPDOC ---
Subjective Date Seen The patient was seen on 04/12/20. Subjective Chief Complaint/HPI And patient is once again very pleasant. She reports that she is not really in any pain at this time, but feeling significantly fatigued. She was able to sit up on the edge of the bed with physical therapy today, but that was all that she was able to handle. She did tolerate her breakfast. Constitutional: Denies: Chills, Fever, Night Sweats Pulmonary: Denies: Dyspnea, Cough Cardiovascular: Reports: Lt Headedness; Denies: Chest Pain, Palpitations, Paroxysmal Noc. Dyspnea Gastrointestinal: Denies: Nausea, Vomiting, Abdominal Pain Neurological: Reports: Weakness (generalized) Psych: Reports: Mood Normal Objective Physical Examination General Exam: Positive: Alert, Cooperative, No Acute Distress Neck Exam: Positive: Supple, JVD Chest Exam: Positive: Rales (at the bilateral bases), Diminished; Negative: Rhonchi, Wheezing Heart Exam: Positive: Tachycardic, Irregular Rhythm Telemetry: Positive: Atrial fibrillation, Tachycardia Abdomen Exam: Positive: BS Hypoactive, Other (ascites) Extremity Exam: Positive: Edema (anasarca), Swelling (significant swelling of upper and lower extremities) Skin Exam: Positive: Other skin issue (skin changes consistent with venous stasis) Neuro Exam: Positive: Normal Speech Psych Exam: Positive: Mental status NL, Mood NL Assessment /Plan Problems (1) Sepsis Status: Acute Problem Text: Patient is most likely suffering from sepsis/septic shock of unknown etiology Blood cultures after 24 hours are negative after 48 hrs UA is negative Chest x-ray did not show any infiltrate, just atelectasis CT of the abdomen and pelvis does show ascites, but no clear evidence of a source for infection Patient continues on Vanco (started 04/10/20) and Merrem (started 04/09/20) empirically Continues to require vasopressors for blood pressure control (2) DVT of axillary vein, acute right Status: Acute Problem Text: Patient developed DVT on Eliquis Patient is currently on heparin which can be switched to by mouth Coumadin before discharge as patient developed DVT on eliquis. (3) Volume overload Status: Acute Problem Text: Her blood pressure does not allow for very aggressive dialysis/fluid removal. Dialysis as per recommendations from nephrology. (4) ESRD on dialysis Status: Chronic Problem Text: End-stage renal disease on hemodialysis Nephrology consult appreciated (5) Atrial fibrillation Status: Chronic Problem Text: Currently anticoagulated with heparin, bridge to Coumadin with target INR 2.0-3.0 We will hold beta blockers due to hypotension Telemetry monitoring Plan/VTE VTE Prophylaxis Ordered?: Yes Plan The patient remains in critical condition. She continues to hypotensive requi ring a levophed drip, it was down to 2 MCG this morning, and therefore it sounds like nephrology will reattempt to dialyze her and remove as much fluid as a can. However, this has been attempted multiple times previously, and expectations are not high. If today's dialysis is unsuccessful, we will begin to breach the idea of comfort measures only with her. VS, I&O, 24H, Fishbone Vital Signs/I&O Vital Signs Date Time Temp Pulse Resp B/P (MAP) Pulse Ox O2 Delivery O2 Flow Rate FiO2 04/12/20 12:30 88 80/51 (61) 04/12/20 12:00 97.0 17 94 Room Air I&O- Last 24 Hours up to 6 AM 04/12/20 05:59 Intake Total 1313.2 ml Output Total 0 ml Balance 1313.2 ml Laboratory Data 24H LABS Laboratory Tests 2 04/12/20 05:14: Nucleated Red Blood Cells % (auto) 9.1H, Activated Partial Thromboplast Time 82.4H, Anion Gap 9, Glomerular Filtration Rate 12.3L, Calcium Level 7.9L, Phosphorus Level 5.2H, Albumin 1.7L, Cortisol AM Sample 16.7, Random Vancomycin Level 15.5 CBC/BMP Laboratory Tests 04/12/20 05:14 Microbiology Microbiology 04/11/20 Stool Occult Blood (TAMIE) - Final, Complete 04/08/20 Urine Culture - Final, Complete 04/08/20 Stool Occult Blood (TAMIE) - Final, Complete 04/08/20 Blood Culture - Preliminary, Resulted No Growth after 72 hours. All specime... SAMIR HUGGINS DO Apr 12, 2020 16:03
[2020-04-12] MEDS: WARFARIN SOD 2.5MG TAB PO SCH (16:59)
[2020-04-12] MEDS: VANCOMYCIN HCL 750 MG, VIAL MATE ADAPTER 1 EACH in D5W 250 ML IV SCH (16:59)
[2020-04-12] MEDS: **VANCO AFTER HD** MISC XX SCH (17:00)
[2020-04-12] MEDS: MEROPENEM INJ 500 MG in IV 1 EA IV SCH (18:33)
[2020-04-13] VITALS (66 sets, daily range): BP systolic 73–108; BP diastolic 45–66
[2020-04-13 05:01] LABS: HEMATOCRIT 24.7 % (36.0-47.0); HEMOGLOBIN 7.9 g/dl (12.0-15.5); MEAN CORPUSCULAR HEMOGLOBIN 29.7 pg (27.0-33.0); MEAN CORPUSCULAR VOLUME 92.9 fl (80.0-96.0); PLATELET COUNT, AUTOMATED 105 10^3/uL (150-450); RED BLOOD COUNT 2.66 10^6/uL (4.00-5.40); WHITE BLOOD COUNT 25.2 10^3/uL (4.0-10.0)
[2020-04-13 05:10] LABS: INR 1.33; PROTHROMBIN TIME 16.2 SECONDS (11.8-14.0)
[2020-04-13 05:28] LABS: ALBUMIN 1.7 GM/DL (3.2-5.2); CALCIUM LEVEL 7.8 MG/DL (8.8-10.2); CREATININE FOR GFR 2.85 MG/DL (0.55-1.30); GLOMERULAR FILTRATION RATE 16.7 (>32); PHOSPHORUS LEVEL 4.5 MG/DL (2.5-4.9); POTASSIUM SERUM 4.3 MEQ/L (3.5-5.1); VANCOMYCIN RANDOM 20.4 UG/ML
[2020-04-13 05:53] LABS: MAGNESIUM LEVEL 1.6 MG/DL (1.8-2.4)
[2020-04-13] MEDS: LEVOTHYROXINE 75MCG TABLET (0.075MG) PO SCH (05:56)
[2020-04-13] MEDS: HEPARIN DRIP 25,000 UNITS in IV 1 EA IV SCH (05:57)
[2020-04-13] MEDS: allopurinoL 100 MG TAB PO SCH (08:11)
[2020-04-13] MEDS: MIDODRINE 5 MG TAB PO SCH ×3 (08:11→17:00)
[2020-04-13] MEDS: CALCITRIOL 0.25 MCG CAP (S0169) PO SCH (08:11)
[2020-04-13] MEDS: PANTOPRAZOLE 40MG TAB (PROTONIX) PO SCH (08:11)
[2020-04-13] MEDS: **VANCO AFTER HD** MISC XX SCH (11:34)
--- NOTE | 2020-04-13 16:02 | IPNPDOC ---
Subjective Date Seen The patient was seen on 04/13/20. Subjective Chief Complaint/HPI She is once again pleasant this morning. She has not in any pain at this time. She continues to feel very weak, but otherwise does not have any other complaints. Objective Physical Examination General Exam: Positive: Alert, No Acute Distress Neck Exam: Positive: JVD Chest Exam: Positive: Rales, Diminished Heart Exam: Positive: Irregular Rhythm Telemetry: Positive: Atrial fibrillation, Tachycardia Abdomen Exam: Positive: BS Hypoactive, Other (ascites) Extremity Exam: Positive: Edema (anasarca, perhaps mildly improved from yesterday.), Swelling (significant swelling of upper and lower extremities) Skin Exam: Positive: Other skin issue (skin changes consistent with venous stasis) Neuro Exam: Positive: Normal Speech Psych Exam: Positive: Mental status NL, Mood NL Assessment /Plan Problems (1) Sepsis Status: Acute Problem Text: Patient is most likely suffering from sepsis/septic shock of unknown etiology Blood cultures after 24 hours are negative after 48 hrs UA is negative Chest x-ray did not show any infiltrate, just atelectasis CT of the abdomen and pelvis does show ascites, but no clear evidence of a source for infection Patient continues on Vanco (started 04/10/20) and Merrem (started 04/09/20) empirically Continues to require vasopressors for blood pressure control (2) DVT of axillary vein, acute right Status: Acute Problem Text: Patient developed DVT on Eliquis Patient is currently on heparin which can be switched to by mouth Coumadin before discharge as patient developed DVT on eliquis. (3) Volume overload Status: Acute Problem Text: Her blood pressure does not allow for very aggressive dialysis/fluid removal. Dialysis as per recommendations from nephrology. (4) ESRD on dialysis Status: Chronic Problem Text: End-stage renal disease on hemodialysis Nephrology consult appreciated (5) Atrial fibrillation Status: Chronic Problem Text: Currently anticoagulated with heparin, bridge to Coumadin with target INR 2.0-3.0 We will hold beta blockers due to hypotension Telemetry monitoring Plan/VTE VTE Prophylaxis Ordered?: Yes Plan She successfully underwent dialysis yesterday, perhaps her anasarca appears to be mildly improved this morning, but nevertheless she remains critically ill. She does continue to require Levophed to maintain her pressure. Nephrology's input on this case is greatly appreciated. Started to bridge her over to Coumadin therapy, perhaps we may be able to discontinue the heparin drip in a few days when she is at a target INR of 2.0- 3.0. VS, I&O, 24H, Fishbone Vital Signs/I&O Vital Signs Date Time Temp Pulse Resp B/P (MAP) Pulse Ox O2 Delivery O2 Flow Rate FiO2 04/13/20 14:00 106 100/56 (71) 04/13/20 12:00 98.2 16 94 Room Air 04/12/20 16:00 2.0 I&O- Last 24 Hours up to 6 AM 04/13/20 06:00 Intake Total 1455 ml Output Total 1000 ml Balance 455 ml Laboratory Data 24H LABS Laboratory Tests 2 04/13/20 04:45: Nucleated Red Blood Cells % (auto) 10.3H, Prothrombin Time 16.2H, Prothromb Time International Ratio 1.33, Anion Gap 8, Glomerular Filtration Rate 16.7L, Calcium Level 7.8L, Phosphorus Level 4.5, Magnesium Level 1.6L, Albumin 1.7L, Random Vancomycin Level 20.4 04/13/20 12:31: Activated Partial Thromboplast Time 61.5H CBC/BMP Laboratory Tests 04/13/20 04:45 Microbiology Microbiology 04/11/20 Stool Occult Blood (TAMIE) - Final, Complete 04/08/20 Urine Culture - Final, Complete 04/08/20 Stool Occult Blood (TAMIE) - Final, Complete 04/08/20 Blood Culture - Final, Complete NO GROWTH AFTER 5 DAYS SAMIR HUGGINS DO Apr 13, 2020 16:02
[2020-04-13] MEDS: NOREPINEPHRINE BITARTRATE 16 MG in D5W 484 ML IV SCH (16:04)
[2020-04-13] MEDS: WARFARIN SOD 2.5MG TAB PO SCH (17:01)
[2020-04-13] MEDS: MEROPENEM INJ 500 MG in IV 1 EA IV SCH (17:01)
[2020-04-13] MEDS ORDERED: MAGNESIUM OXIDE 400 MG TAB (MAG-OX) PO ONE (19:00)
--- NOTE | 2020-04-13 19:00 | IPN ---
DATE: 04/13/2020 Mrs. Dickerson is seen this morning on her bedside. She underwent hemodialysis yesterday and tolerated it slightly better. She did require increasing dose of Levophed. However, it was not as high and blood pressure was not as low as last treatment. This morning she is still on 4 mcg of Levophed. She is feeling tired and continues to have oozing of fluid from her legs. She has generalized anasarca, and we are unable to remove fluid with dialysis. She does not make much urine. So far, all workup has been negative for any source of infection. She is being anticoagulated for deep vein thrombosis (DVT) in her right upper extremity. PHYSICAL EXAMINATION: Temperature 98 degrees Fahrenheit, heart rate 112 per minute and respiratory rate 18 per minute. Blood pressure 90/52 mmHg and oxygen saturation is 95% on room air. Head is atraumatic. She has mild facial edema. Neck veins are not abnormally distended. Heart sounds are tachycardiac and irregular. Lungs have slightly diminished breath sounds at bases. Abdomen is distended with ascites and nontender. Bowel sounds are normal. Extremities have no cyanosis or clubbing. She has generalized edema on all her limbs, particularly lower limbs where she has oozing of fluid from both legs. Neurologically she is awake, alert and oriented times three. Today's labs show WBC count 25.2, hemoglobin 7.9 and hematocrit 24.7. Platelets 105. Sodium 135, potassium 4.3, CO2 of 25, BUN 36 and creatinine 2.85. Glucose is 100 and calcium 7.8. Albumin level is 1.7. PROBLEMS: 1. End-stage renal disease. The patient was dialyzed yesterday with some difficulty and required increased dose of Levophed. She did complete her dialysis treatment this time. We will plan to dialyze her again tomorrow. There is no emergent need for dialysis today other than need for fluid removal, which she does not tolerate due to hypotension. 2. Hypotension. This is a chronic and worsening issue. I have discussed with the patient and explained to her about difficult situation. Unfortunately she has no recovery of blood pressure so far and remains on Levophed. We will continue our efforts to wean her off. 3. Generalized anasarca and hypervolemia. We are unable to remove fluid due to persistent and worsening hypotension. Unfortunately her condition is not getting any better. 4. Anemia. Her anemia is about the same, and we will continue to monitor. There is no emergent need for a transfusion at this point. 5. DO NOT RESUSCITATE (DNR). She has a DNR and DO NOT INTUBATE (DNI) status. She does not want to stop dialysis at this point and wants to live. 6. DVT right upper extremity. The patient remains on IV heparin drip. Overall her condition is guarded and not making much progress. She is not ready to consider comfort measures at this point.
[2020-04-13] MEDS: ONDANSETRON 4MG/2ML VIAL IV PRN (21:13)
[2020-04-14] VITALS (106 sets, daily range): BP systolic 64–130; BP diastolic 35–72
[2020-04-14 05:45] LABS: HEMATOCRIT 24.2 % (36.0-47.0); HEMOGLOBIN 7.7 g/dl (12.0-15.5); MEAN CORPUSCULAR HEMOGLOBIN 29.3 pg (27.0-33.0); MEAN CORPUSCULAR HGB CONC 31.8 g/dl (32.0-36.5); PLATELET COUNT, AUTOMATED 109 10^3/uL (150-450); RED BLOOD COUNT 2.63 10^6/uL (4.00-5.40); WHITE BLOOD COUNT 28.1 10^3/uL (4.0-10.0)
[2020-04-14 05:54] LABS: INR 1.24; PROTHROMBIN TIME 15.3 SECONDS (11.8-14.0)
[2020-04-14 05:56] LABS: PARTIAL THROMBOPLASTIN TIME 60.9 SECONDS (25.0-38.4)
[2020-04-14 06:01] LABS: ALBUMIN 1.7 GM/DL (3.2-5.2); CALCIUM LEVEL 8.2 MG/DL (8.8-10.2); CREATININE FOR GFR 3.54 MG/DL (0.55-1.30); PHOSPHORUS LEVEL 5.1 MG/DL (2.5-4.9); POTASSIUM SERUM 4.6 MEQ/L (3.5-5.1)
[2020-04-14] MEDS: LEVOTHYROXINE 75MCG TABLET (0.075MG) PO SCH (06:12)
[2020-04-14] MEDS: PANTOPRAZOLE 40MG TAB (PROTONIX) PO SCH (06:13)
[2020-04-14] MEDS: CALCITRIOL 0.25 MCG CAP (S0169) PO SCH (06:13)
[2020-04-14] MEDS: MIDODRINE 5 MG TAB PO SCH ×3 (06:13→16:12)
[2020-04-14] MEDS: allopurinoL 100 MG TAB PO SCH (06:14)
[2020-04-14] MEDS: HEPARIN SOD (PORCINE) 5000UNITS/ML VIAL (J1644 PER 1000UNITS) IV PRN ×2 (06:24→22:38)
[2020-04-14] MEDS ORDERED: DARBEPOETIN 200MCG/0.4ML *DIALYSIS* SYRINGE (J0882 PER 1MCG) IV SCH (08:00)
--- NOTE | 2020-04-14 13:25 | IPN ---
DATE: 04/14/2020 SUBJECTIVE: Patient was seen and examined at the bedside today morning in the intensive care unit (ICU). He continues to be on intravenous (IV) Levophed. Levophed requirement today morning was increased. She is currently being dialyzed at the bedside as well. Levophed is 10 mcg now. Patient is otherwise awake and alert. She has very poor oral intake and does not have a good appetite. She continues to be on broad-spectrum IV antibiotics. Anemia is getting worse. Hemoglobin has dropped to 7.7 today. OBJECTIVE: Vital signs: Temperature is 97.4 degrees Fahrenheit, blood pressure is 80/62, pulse is 110, respiratory rate of 19, saturating 91% on nasal cannula at 2 liters. Intake and output: There is no urine output recorded. Weight on the bed scale is 73.5 kg. PHYSICAL EXAM: General: Patient is awake, alert, oriented times two, laying in bed, getting hemodialysis done. Head and neck exam: Extraocular muscles intact. Pupils equally round and reactive to light. Mucous membranes are moist. Neck is supple. There is mildly elevated jugular venous distention (JVD). Cardiovascular: S1, S2, tachycardia. 3+ edema of the bilateral lower extremities was noted. Respiratory: Decreased breath sounds at the bases. Otherwise no active rales or rhonchi bilaterally. Abdomen: Is soft. Moderate amount of ascites was noted. There is abdominal wall edema noted as well. Patient has splenomegaly. Genitourinary: Bladder is not palpable. Musculoskeletal: No clubbing or cyanosis. Patient has edema of the bilateral lower and upper extremities as noted above. Central nervous system (INFORMATION SYSTEMS ADMINISTRATOR): No focal deficit. Patient is oriented times two. She follows commands and moves her bilateral upper extremities. Psych: Patient has a depressed mood. LAB REVIEW: CBC showed a WBC of 28.1, hemoglobin 7.7, platelets of 109. INR is 1.2 today. BMP showed sodium 132, potassium 4.6, chloride 100, bicarbonate 24, BUN 46, creatinine is 3.5, calcium is 8.2, phosphorus is 5.1, albumin 1.7. Microbiology: All the cultures are negative so far. CURRENT INPATIENT MEDICATIONS: Patient's medications were all reviewed by myself. She continues to be on IV Levophed. Currently, it is running at 10 mcg. She continues to be on IV heparin drip, and she is empirically on vancomycin and meropenem at this time. Allopurinol dose has been decreased to 100 mg by mouth daily. She was started on Aranesp 200 mcg IV with dialysis once a week. No other significant change in the medications today as compared with yesterday. ASSESSMENT AND PLAN: 1. End-stage renal disease. Patient is being dialyzed at the bedside today morning. She is getting blood transfusion with dialysis and Levophed at 10 mcg and with that, it is very difficult to remove fluid. Our fluid removal goal is 2 liters as tolerated by her blood pressure. 2. Hypotension and shock. No known source of infection is known. Cultures are negative so far. However, empirically she is being covered with vancomycin and meropenem. She is still requiring Levophed, and she also continues to be on midodrine 10 mg by mouth three times a day. 3. Anemia on end-stage renal disease and chronic myelomonocytic leukemia (CMML). Patient has been started on Aranesp with dialysis. He is also getting 1 unit of packed red blood cell (PRBC) transfusion with dialysis today. 4. Generalized anasarca. Patient has very low blood pressures. It is very difficult to remove fluid during dialysis, and she is not a candidate for ascitic tap because of shock at this time. 5. Chronic gout secondary to chronic kidney disease. Patient's allopurinol dose has been decreased to 100 mg by mouth daily. 6. Secondary hyperparathyroidism. Continue current dose of calcitriol 0.25 mcg by mouth daily. 7. Atrial fibrillation. Patient is currently on IV heparin. She is being bridged to Coumadin. INR is subtherapeutic at this time. 8. Chronic myelomonocytic leukemia. Patient currently is not on any chemotherapy at this time. Overall, she has a poor prognosis. Total critical care time spent in the management of this patient today morning in the ICU, excluding all the procedures, was 40 minutes.
[2020-04-14] MEDS: VANCOMYCIN HCL 750 MG, VIAL MATE ADAPTER 1 EACH in D5W 250 ML IV SCH (14:47)
[2020-04-14] MEDS: WARFARIN SOD 2.5MG TAB PO SCH (16:12)
[2020-04-14] MEDS: **VANCO AFTER HD** MISC XX SCH (16:13)
[2020-04-14] MEDS: NOREPINEPHRINE BITARTRATE 16 MG in D5W 484 ML IV SCH (16:40)
[2020-04-14] MEDS: MEROPENEM INJ 500 MG in IV 1 EA IV SCH (17:06)
--- NOTE | 2020-04-14 17:38 | IPNPDOC ---
Subjective Date Seen The patient was seen on 04/14/20. Subjective Chief Complaint/HPI The patient and I had a conversation about her prognosis, how she has not been able to get off of Levophed, and she has not tolerated dialysis multiple times. She understands that she is not making any headway, and is agreeable with starting the process regarding hospice. When her friend and caregiver arrived we had more conversation on the same topic, and they agree that they would now like to speak with hospice. Objective Physical Examination General Exam: Positive: Alert, No Acute Distress Neck Exam: Positive: JVD Chest Exam: Positive: Rales, Diminished Heart Exam: Positive: Irregular Rhythm Telemetry: Positive: Atrial fibrillation, Tachycardia Abdomen Exam: Positive: BS Hypoactive, Other (ascites) Extremity Exam: Positive: Edema (anasarca) Neuro Exam: Positive: Normal Speech Psych Exam: Positive: Mental status NL, Mood NL, Oriented x 3 Assessment /Plan Problems (1) Sepsis Status: Acute (2) DVT of axillary vein, acute right Status: Acute (3) Volume overload Status: Acute (4) ESRD on dialysis Status: Chronic (5) Atrial fibrillation Status: Chronic Plan/VTE VTE Prophylaxis Ordered?: Yes Plan Hospice consult ordered. They have been contacted. They will start arrangements with the patient and her caregiver. The patient would prefer to at home, therefore we will continue with Levophed drip and other measures until everything is arranged for her discharge. VS, I&O, 24H, Fishbone Vital Signs/I&O Vital Signs Date Time Temp Pulse Resp B/P (MAP) Pulse Ox O2 Delivery O2 Flow Rate FiO2 04/14/20 16:45 100 78/53 (61) 04/14/20 12:00 97.0 18 92 Room Air 04/14/20 11:15 2.0 I&O- Last 24 Hours up to 6 AM 04/14/20 06:00 Intake Total 1085.2 ml Balance 1085.2 ml Laboratory Data 24H LABS Laboratory Tests 2 04/14/20 05:07: Nucleated Red Blood Cells % (auto) 9.3H, Prothrombin Time 15.3H, Prothromb Time International Ratio 1.24, Activated Partial Thromboplast Time 60.9H, Anion Gap 8 , Glomerular Filtration Rate 13.0L, Calcium Level 8.2L, Phosphorus Level 5.1H, Albumin 1.7L 04/14/20 13:26: Activated Partial Thromboplast Time > 240.0*H CBC/BMP Laboratory Tests 04/14/20 05:07 Microbiology Microbiology 04/11/20 Stool Occult Blood (TAMIE) - Final, Complete 04/08/20 Urine Culture - Final, Complete 04/08/20 Stool Occult Blood (TAMIE) - Final, Complete 04/08/20 Blood Culture - Final, Complete NO GROWTH AFTER 5 DAYS SAMIR HUGGINS DO Apr 14, 2020 17:38
[2020-04-14] MEDS: HEPARIN DRIP 25,000 UNITS in IV 1 EA IV SCH (18:20)
[2020-04-15] VITALS (63 sets, daily range): BP systolic 80–126; BP diastolic 46–83
[2020-04-15] MEDS: ACETAMINOPHEN TAB 650MG DOSE (2X325MG) PO PRN (02:37)
[2020-04-15] MEDS: LEVOTHYROXINE 75MCG TABLET (0.075MG) PO SCH (05:07)
[2020-04-15 05:28] LABS: HEMATOCRIT 26.6 % (36.0-47.0); HEMOGLOBIN 8.7 g/dl (12.0-15.5); MEAN CORPUSCULAR HGB CONC 32.7 g/dl (32.0-36.5); MEAN CORPUSCULAR VOLUME 91.7 fl (80.0-96.0); WHITE BLOOD COUNT 26.6 10^3/uL (4.0-10.0)
[2020-04-15 05:40] LABS: PARTIAL THROMBOPLASTIN TIME 59.1 SECONDS (25.0-38.4)
[2020-04-15 05:42] LABS: INR 1.33; PROTHROMBIN TIME 16.2 SECONDS (11.8-14.0)
[2020-04-15 05:43] LABS: ALBUMIN 1.7 GM/DL (3.2-5.2); CALCIUM LEVEL 8.1 MG/DL (8.8-10.2); CREATININE FOR GFR 2.71 MG/DL (0.55-1.30); GLOMERULAR FILTRATION RATE 17.7 (>32); PHOSPHORUS LEVEL 3.9 MG/DL (2.5-4.9); POTASSIUM SERUM 4.1 MEQ/L (3.5-5.1)
[2020-04-15 05:54] LABS: PLATELET COUNT, AUTOMATED 86 10^3/uL (150-450)
[2020-04-15] MEDS: HEPARIN SOD (PORCINE) 5000UNITS/ML VIAL (J1644 PER 1000UNITS) IV PRN (05:58)
[2020-04-15] MEDS: MIDODRINE 5 MG TAB PO SCH ×2 (07:18→11:27)
[2020-04-15] MEDS: ONDANSETRON 4MG/2ML VIAL IV PRN (07:31)
[2020-04-15] MEDS: CALCITRIOL 0.25 MCG CAP (S0169) PO SCH (07:32)
[2020-04-15] MEDS: PANTOPRAZOLE 40MG TAB (PROTONIX) PO SCH (07:32)
[2020-04-15] MEDS ORDERED: allopurinoL 100 MG TAB PO SCH (09:00)
--- NOTE | 2020-04-15 17:21 | IPNPDOC ---
Subjective Date Seen The patient was seen on 04/15/20. Subjective Chief Complaint/HPI The patient and her close friend and caregiver have decided to initiate comfort measures only at this time. The patient is aware of the likelihood that she may pass away here in the hospital prior to going to the hospice home, she is okay with this. An updated MOLST form indicating comfort measures only was signed by the patient herself since she is quite aware and fully capable of making her own decisions. Objective Physical Examination Other physical findings Physical examination was not performed as this would not change her treatment plan. Assessment /Plan Problems (1) Sepsis Status: Acute (2) DVT of axillary vein, acute right Status: Acute (3) Volume overload Status: Acute (4) ESRD on dialysis Status: Chronic (5) Atrial fibrillation Status: Chronic (6) Hypotension Status: Acute (7) Chronic myeloproliferative disorder Status: Chronic (8) Anemia in chronic kidney disease Status: Chronic Plan/VTE VTE Prophylaxis Ordered?: No VTE Exclusion Mechanical Proph: Patient/Family Refusal Plan Advance Directives: DNR All life-sustaining orders have been discontinued. Labs discontinued. Vitals discontinued. Orders for comfort measures including morphine, Ativan, as needed scopolamine, and others are now started. VS, I&O, 24H, Fishbone Vital Signs/I&O Vital Signs Date Time Temp Pulse Resp B/P (MAP) Pulse Ox O2 Delivery O2 Flow Rate FiO2 04/15/20 15:15 105 89/56 (67) 93 Nasal Cannula 2.0 04/15/20 12:00 97.3 20 l I&O- Last 24 Hours up to 6 AM 04/15/20 06:00 Intake Total 1433.8 ml Output Total 2000 ml Balance -566.2 ml Laboratory Data 24H LABS Laboratory Tests 2 04/14/20 21:57: Activated Partial Thromboplast Time 51.9H 04/15/20 05:05: Activated Partial Thromboplast Time 59.1H, Nucleated Red Blood Cells % (auto) 11.5H, Immature Platelet Fraction 29.9H, Prothrombin Time 16.2H, Prothromb Time International Ratio 1.33, Anion Gap 7L, Glomerular Filtration Rate 17.7L, Calcium Level 8.1L, Phosphorus Level 3.9#, Albumin 1.7L 04/15/20 11:30: Activated Partial Thromboplast Time 82.0H CBC/BMP Laboratory Tests 04/15/20 05:05 Microbiology Microbiology 04/11/20 Stool Occult Blood (TAMIE) - Final, Complete 04/08/20 Urine Culture - Final, Complete 04/08/20 Stool Occult Blood (TAMIE) - Final, Complete 04/08/20 Blood Culture - Final, Complete NO GROWTH AFTER 5 DAYS SAMIR HUGGINS DO Apr 15, 2020 17:21
[2020-04-16] MEDS: SCOPOLAMINE 1MG TRANSDERMAL PATCH TOP PRN (00:32)
[2020-04-16] MEDS: MORPHINE 2 MG/ML 1ML VIAL (J2270) IV PRN ×3 (00:33→17:15)
[2020-04-16] MEDS: ONDANSETRON 4MG/2ML VIAL IV PRN ×2 (00:33→17:14)
[2020-04-16] MEDS ORDERED: diphenhydrAMINE 50MG/ML VIAL (J1200) As Ordered ONE (02:44)
[2020-04-16] MEDS: diphenhydrAMINE 50MG/ML VIAL (J1200) IV PRN ×2 (02:51→17:15)
--- NOTE | 2020-04-16 06:54 | IPN ---
DATE: 04/15/2020 SUBJECTIVE: The patient was seen and examined at the bedside today morning in the intensive care unit (ICU). The patient continues to be dependent on Levophed. She is otherwise awake and alert. She was dialyzed yesterday 1 unit of blood that was given during dialysis. She tolerated the hemodialysis procedure, 2 liters of fluid was removed during dialysis. The last 24-hour events were noted. The patient and her caregiver discussed goals of care with the medical team and she finally has decided to go to hospice house. Arrangements are being done and until the arrangements are done the patient wants to continue current medical management. OBJECTIVE: Vital Signs: Temperature is 97.3 degrees Fahrenheit, blood pressure 89/56, pulse is 105, respiratory rate of 18, saturating 93% on nasal cannula at 3 liters. Intake and Output: There is no urine output recorded. Ultrafiltration with dialysis was 2 liters. Weight in the bed scale is 73.3 kg. PHYSICAL EXAMINATION: General: The patient is awake, alert, oriented times three, laying in bed. Head and Neck Exam: Extraocular muscles intact. Pupils equally round and reactive to light. Mucous membranes are moist. Neck is supple. She has moderately elevated jugular venous distention (JVD). She has a right internal jugular (IJ) tunneled hemodialysis catheter and a left subclavian triple-lumen catheter. Cardiovascular: S1, S2. Regular rate. 3+ edema of the bilateral lower extremities. Respiratory: Decreased breath sounds bilaterally at the bases, otherwise no active rales or rhonchi. Abdomen: Soft. Distended. Moderate amount of ascites and abdominal wall edema was noted. Musculoskeletal: 3+ edema of the bilateral lower extremities was noted. INTENSIVE CARE ANAESTHETIST: No focal deficit. The patient is awake and alert. She is able to follow commands and move extremities. LAB REVIEW: CBC showed a WBC of 26.6, hemoglobin is 8.7, platelets are 86. BMP showed sodium 135, potassium 4.1, chloride 100, bicarb 28, BUN 35, creatinine is 2.7, calcium 8.1, phosphorus is 3.9. CURRENT INPATIENT MEDICATIONS: The patient's medications were all reviewed by myself. She continues to be on Levophed and heparin drip along with IV antibiotics. No other significant change in the medications today as compared with yesterday. ASSESSMENT/PLAN: 1. End-stage renal disease. The patient was dialyzed yesterday. After discussion with the patient today she is agreeable to stopping further dialysis treatments. She is possibly going to be transferred to [facility] tomorrow. 2. Shock and hypotension. The patient continues to be on antibiotics and Levophed. They will be stopped once the arrangements are made for transfer or if the patient is made comfort measures only. 3. Anemia secondary to end-stage renal disease and chronic myelomonocytic leukemia (CMML). The patient was given 1 unit of packed red blood cell (PRBC) transfusion with dialysis yesterday. No further blood transfusion is needed. 4. Generalized anasarca. We are unable to manage the volume status at this time because of low blood pressures requiring pressors. 5. CMML. The patient has a poor prognosis. Overall, she is not a candidate for any treatment at this time. 6. Disposition. The patient is DO NOT RESUSCITATE (DNR/DO NOT INTUBATE (DNI). She is going to be transferred to hospice. Nephrology service is going to sign off at this moment. No further hemodialysis will be offered.
--- NOTE | 2020-04-16 12:12 | DS.PDOC ---
Discharge Summary General Date of Admission Apr 07, 2020 at 23:29 Date of Discharge Pending -- Pt is Comfort Measures Only at this time Discharge Summary PRIMARY CARE PHYSICIAN: Sarbjit Kaplan ATTENDING AT TIME OF DISCHARGE: Dr. Samir Huggins, DO DISCHARGE DIAGNOS(E)S: Sepsis with septic shock and hypotension Fluid overload, generalized anasarca DVT of right axillary pain End-stage renal disease on dialysis Atrial fibrillation Leukocytosis due to Chronic myelomonocytic leukemia (CML) Anemia secondary to end-stage renal disease COPD Gout Vitamin D deficiency HPI & HOSPITAL COURSE: Ms. Dickerson is an 84-year-old female who presented to the hospital with severe right upper extremity pain, which was subsequently discovered to be a DVT of the right upper extremity, although she had been taking anticoagulation (Eliquis) at home.. Although she denied any shortness of breath, she was also found to have a left pulmonary effusion with pulmonary edema, and upon presentation she was found to be severely fluid overloaded with anasarca. A central line was placed during her hospitalization since that she required pressors, and she has been on midodrine and Levophed almost her entire hospitalization. Dialysis was attempted multiple times, fluid was removed in small amounts, but she was often not able to tolerate full sessions of dialysis because of hypotension. It appears that she was suffering from sepsis with septic shock and hypotension, however despite multiple diagnostic imaging, blood culture, urine culture, and labs, an etiology for the source of her septic shock was not found, a paracentesis was recommended, however since she was on a Levop hed drip and heparin drip, it would've been unsafe to perform. The patient understood quite well that she was not progressing, therefore she being of sound mind judgment opted to switch over to comfort measures only. A new MOLST form was filled out and signed, and treatment was withdrawn yesterday. This morning she was sleeping in her room, I opted not to disturb her at this time. PHYSICAL EXAMINATION: Not Performed, patient is comfort measures only now. DISPOSITION: She will remain here until she passes away. Discharge Medications Scheduled Allopurinol (Allopurinol) 100 Mg Tab, 200 MG PO DAILY, (Reported) Apixaban (Eliquis) 2.5 Mg Tab, 2.5 MG PO BID, (Reported) Calcitriol (Calcitriol) 0.25 Mcg Cap, 0.25 MCG PO DAILY, (Reported) Cholecalciferol (Vitamin D3) (Vitamin D3) 50 Mcg Tablet, 2,000 UNITS PO DAILY, (Reported) Denosumab Injection (Prolia) 60 Mg/1 Ml Syringe, 60 MG SC ASDIRECTED, (Reported) INJECT 60 MG SUBQ EVERY 6 MONTHS DIRECTED Levothyroxine Sodium (Synthroid) 75 Mcg Tablet, 75 MCG PO DAILY, (Reported) Midodrine HCl (Midodrine HCl) 5 Mg Tablet, 5 MG PO TID, (Reported) TAKES AT 0800, 1200, AND 1600 Pantoprazole Sodium (Pantoprazole Sodium) 40 Mg Tablet.dr, 40 MG PO DAILY, (Reported) Umeclidinium Brm/Vilanterol Tr (Anoro Ellipta 62.5-25 Mcg INH) 1 Aer Aer, 1 PUFF PO DAILY, (Reported) Miscellaneous Medications [Patient Comments] , (Reported) PATIENT UNABLE TO REMAIN AWAKE AT THIS TIME TO REVIEW MEDICATION HISTORY. MEDICATIONS LISTED ARE ACTIVE AT HER PHARMACY AND WILL BE VERIFIED SOON THE PHARMACY IS ABLE TO BE CONTACTED. Allergies Coded Allergies: alendronate sodium (Verified Allergy, Unknown, 02/20/20) enalapril (Verified Allergy, Unknown, 02/20/20) SAMIR HUGGINS DO Apr 16, 2020 12:12
[2020-04-17] MEDS: MORPHINE 2 MG/ML 1ML VIAL (J2270) IV PRN ×3 (02:34→14:33)
[2020-04-17] MEDS: diphenhydrAMINE 50MG/ML VIAL (J1200) IV PRN ×3 (10:04→22:55)
--- NOTE | 2020-04-17 19:41 | IPNPDOC ---
Text Note Date of Service The patient was seen on 04/17/20. NOTE Subjective: Awake, alert this morning. 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 Objective: Breathing comfortably, speaking clearly. Was asleep when I first arrived but awoke and carried a conversation with me. 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 VS,Fishbone, I+O VS, Fishbone, I+O Vital Signs Date Time Temp Pulse Resp B/P (MAP) Pulse Ox O2 Delivery O2 Flow Rate FiO2 04/17/20 14:33 16 04/17/20 08:00 2.0 04/16/20 17:25 Room Air 04/15/20 15:15 105 89/56 (67) 93 04/15/20 12:00 97.3 I&O- Last 24 Hours up to 6 AM 04/17/20 06:00 Intake Total 620 ml Output Total 0 ml Balance 620 ml JAMES MENDOZA MD Apr 17, 2020 19:41
[2020-04-18] MEDS: MORPHINE 2 MG/ML 1ML VIAL (J2270) IV PRN ×2 (06:29→20:03)
[2020-04-18] MEDS: diphenhydrAMINE 50MG/ML VIAL (J1200) IV PRN ×2 (06:29→20:04)
[2020-04-19] MEDS: diphenhydrAMINE 50MG/ML VIAL (J1200) IV PRN ×2 (13:09→21:33)
[2020-04-19] MEDS: MORPHINE 2 MG/ML 1ML VIAL (J2270) IV PRN (21:33)
[2020-04-20] MEDS: MORPHINE 2 MG/ML 1ML VIAL (J2270) IV PRN ×2 (08:24→14:26)
[2020-04-20] MEDS: LORazepam 2 MG/ML VIAL IV PRN ×2 (08:44→21:26)
[2020-04-20] MEDS: SCOPOLAMINE 1MG TRANSDERMAL PATCH TOP PRN (14:27)
[2020-04-21] MEDS: MORPHINE 2 MG/ML 1ML VIAL (J2270) IV PRN ×3 (02:42→19:22)
[2020-04-21] MEDS: diphenhydrAMINE 50MG/ML VIAL (J1200) IV PRN ×2 (09:19→19:22)
[2020-04-21] MEDS: LORazepam 2 MG/ML VIAL IV PRN (21:14)
[2020-04-22] MEDS: MORPHINE 2 MG/ML 1ML VIAL (J2270) IV PRN ×5 (00:25→13:13)
[2020-04-22] MEDS: ONDANSETRON 4MG/2ML VIAL IV PRN (00:25)
[2020-04-22] MEDS: diphenhydrAMINE 50MG/ML VIAL (J1200) IV PRN ×3 (00:25→09:23)
--- NOTE | 2020-04-22 17:54 | IPNPDOC ---
Text Note Date of Service The patient was seen on 04/22/20. NOTE 84-year-old woman who presented to the hospital with severe right upper extremity pain, which was subsequently discovered to be a DVT of the right upper extremity, while on eliquis, with pulmonary edema and anasarca with shock requiring pressors. She ultimately decided to have her goals of care be strict for comfort measures only and today Ms. Dickerson at 1500hrs. VS,Fishbone, I+O VS, Fishbone, I+O Vital Signs Date Time Temp Pulse Resp B/P (MAP) Pulse Ox O2 Delivery O2 Flow Rate FiO2 04/22/20 08:00 2.0 04/17/20 14:33 16 04/16/20 17:25 Room Air I&O- Last 24 Hours up to 6 AM 04/22/20 06:00 Intake Total 0 ml Output Total 0 ml Balance 0 ml JAMES MENDOZA MD Apr 22, 2020 17:54
== END 2020-04-22 17:00 | disposition expired | DRG 871 ==
LOC: M ICU 23:29 → M MS5PR 04-16 15:36
PROVIDERS: ADMIT Internal Medicine; ATTEND Neuromusculoskeletal Medicine & OMM
PROC: 02H633Z Insertion of Infusion Device into Right Atrium, Percutaneous Approach (ICD-10-PCS; 2020-04-08)
PROC: 5A1D70Z Performance of Urinary Filtration, Intermittent, Less than 6 Hours Per Day (ICD-10-PCS; principal; 2020-04-09)
PROC: 30233N1 Transfusion of Nonautologous Red Blood Cells into Peripheral Vein, Percutaneous Approach (ICD-10-PCS; 2020-04-14)
DX: A41.9 Sepsis, unspecified organism (principal); N18.6 End stage renal disease; R65.21 Severe sepsis with septic shock; J81.0 Acute pulmonary edema; I82.A11 Acute embolism and thrombosis of right axillary vein; I48.20 Chronic atrial fibrillation, unspecified; I12.0 Hypertensive chronic kidney disease with stage 5 chronic kidney disease or end stage renal disease; C93.10 Chronic myelomonocytic leukemia not having achieved remission; N25.81 Secondary hyperparathyroidism of renal origin; R18.8 Other ascites; E87.70 Fluid overload, unspecified; Z51.5 Encounter for palliative care; Z66 Do not resuscitate; M10.30 Gout due to renal impairment, unspecified site; D63.1 Anemia in chronic kidney disease; E87.6 Hypokalemia; K74.60 Unspecified cirrhosis of liver; E03.9 Hypothyroidism, unspecified; D63.0 Anemia in neoplastic disease; I95.89 Other hypotension; J44.9 Chronic obstructive pulmonary disease, unspecified; E55.9 Vitamin D deficiency, unspecified; Z79.01 Long term (current) use of anticoagulants; Z79.899 Other long term (current) drug therapy; Z88.8 Allergy status to other drugs, medicaments and biological substances; Z85.828 Personal history of other malignant neoplasm of skin; Z87.891 Personal history of nicotine dependence; Z99.2 Dependence on renal dialysis